=== PATIENT | female | born 1945 | race Caucasian/White ===

== ENCOUNTER → 2018-01-04 | Outpatient (CLI) | payer MEDICARE ==
--- NOTE | 2018-01-04 10:05 | CT ---
EXAMINATION TYPE: CT brain wo con DATE OF EXAM: 01/04/2018 HISTORY: memory loss/change in vision. (R 41.3 per order) . History of left-sided breast cancer. Hist ory of prior surgery per patient. CT DLP: 1144 mGycm. Automated Exposure Control for Dose Reduction was Utilized. TECHNIQUE: CT scan of the head is performed without contrast. COMPARISON: CT brain March 15, 2014. FINDINGS: There is no midline shift identified. There is diffuse ventricular and sulcal prominence consistent with diffuse age-related cerebral atrophy. There is low-attenuation in the periventricula r white matter consistent with chronic small vessel ischemic change. There is some persistent hyperde nsity left posterior frontal region near axial image 39 at site of prior larger meningioma, there has been interval surgery and likely some residual meningioma is likely present. Acute intracranial hemo rrhage would be in differential if was not provided with prior comparison There is old fracture defor mity medial wall left orbit redemonstrated. Visualized paranasal sinuses are clear. IMPRESSION: No acute intracranial hemorrhage or midline shift. There is diffuse age-related cerebra l atrophy and chronic small vessel ischemic change noted. Some residual left frontal meningioma is s uspected. This can be further investigated with MRI if desired. No significant new finding seen to ac count for patient's symptoms of vision changes.
== END ==
LOC: RADCTMAIN 09:17
PROVIDERS: ATTEND Psychiatry & Neurology Neurology
DX: G31.1 Senile degeneration of brain, not elsewhere classified (principal); I67.82 Cerebral ischemia
CPT/HCPCS: 70450

== ENCOUNTER 2018-03-14 15:34 | Inpatient (IN) | payer MEDICARE ==
[2018-03-14 16:45] LABS: Anisocytosis Slight; Basophils % (A) 0 %; Eosinophils # (A) 0.1 k/uL (0-0.7); Eosinophils % (A) 2 %; HCT 45.8 % (34.0-46.0); HGB 15.1 gm/dL (11.4-16.0); Lymphocytes # (A) 1.3 k/uL (1.0-4.8); Lymphocytes % (A) 25 %; MCH 28.8 pg (25.0-35.0); MCV 87.5 fL (80.0-100.0); Mean Platelet Volume 8.7; Monocytes # (A) 0.4 k/uL (0-1.0); Monocytes % (A) 7 %; Neutrophils # (A) 3.4 k/uL (1.3-7.7); Neutrophils % (A) 64 %; Platelet Count 156 k/uL (150-450); RBC 5.23 m/uL (3.80-5.40); RDW 16.1 % (11.5-15.5); WBC 5.3 k/uL (3.8-10.6)
[2018-03-14 16:49] LABS: ALT 30 U/L (9-52); AST 31 U/L (14-36); Alkaline Phosphatase 73 U/L (38-126); Anion Gap 9 mmol/L; Blood Urea Nitrogen 14 mg/dL (7-17); Calcium 9.2 mg/dL (8.4-10.2); Carbon Dioxide 27 mmol/L (22-30); Chloride 104 mmol/L (98-107); Glucose 81 mg/dL (74-99); Potassium 4.5 mmol/L (3.5-5.1); Sodium 140 mmol/L (137-145); Total Bilirubin 0.4 mg/dL (0.2-1.3); Total Protein 6.2 g/dL (6.3-8.2)
[2018-03-14 16:53] LABS: INR 1.1 (<1.2); Partial Thromboplastin Time 22.9 sec (22.0-30.0); Prothrombin Time 10.4 sec (9.0-12.0)
[2018-03-14 16:59] LABS: Creatine Kinase 34 U/L (30-135)
[2018-03-14 17:11] LABS: Creatine Kinase MB 0.8 ng/mL (0.0-2.4); Troponin I <0.012 ng/mL (0.000-0.034)
--- NOTE | 2018-03-14 17:12 | CT ---
EXAMINATION TYPE: CT brain wo con DATE OF EXAM: 03/14/2018 COMPARISON: 01/04/2018 HISTORY: Altered mental status. CT DLP: 1153 mGycm Automated exposure control for dose reduction was used. FINDINGS: There is cerebral cortical atrophy. There is no mass effect nor midline shift. There is a 1 cm area o f gyriform increased density in the left posterior frontal lobe convexity. This is unchanged compared to old exam and is consistent with some calcification. There is hypodensity in the periventricular w cielo matter. The calvarium is intact. IMPRESSION: LEFT FRONTAL INCREASED DENSITY AT THE CORTICAL CONVEXITY CONSISTENT WITH SMALL AREA OF RESIDUAL CALCI FICATION ALSO EVIDENT ON THE OLDER CT SCAN OF 03/15/2014. THIS WAS MUCH LARGER ON THE OLD EXAM OF 2013 . THIS APPEARS STABLE COMPARED TO THE MORE RECENT EXAM OF 01/04/2018. I DO NOT SEE EVIDENCE OF SURGERY OR CRANIOTOMY. THIS COULD BE THE RESIDUAL OF THE ARTERIOVENOUS MALFORMATION. THIS HAS BENIGN APPEARA NCE. CHRONIC SMALL VESSEL ISCHEMIA. NO ACUTE INTRACRANIAL ABNORMALITY.
--- NOTE | 2018-03-14 17:13 | XR ---
EXAMINATION TYPE: XR chest 2V DATE OF EXAM: 03/14/2018 COMPARISON: NONE HISTORY: Confusion TECHNIQUE: Frontal and lateral views of the chest are obtained. FINDINGS: There is no heart failure nor confluent pneumonic infiltrate. Costophrenic angles are woodrow r. IMPRESSION: No active cardiopulmonary disease. There is probably cardiomegaly.
[2018-03-14 18:39] LABS: Appearance,Urine Cloudy (Clear); Bacteria,Urine Few /hpf; Bilirubin,Urine Negative (Negative); Blood,Urine Negative (Negative); Color,Urine Yellow; Glucose,Urine (UA) Negative (Negative); Ketones,Urine 2+ (Negative); Leukocyte Esterase,Urine Small (Negative); Mucus,Urine Occasional /hpf; Nitrite,Urine Negative (Negative); Protein,Urine Negative (Negative); RBC,Urine <1 /hpf (0-5); Specific Gravity,Urine 1.015 (1.001-1.035); Squamous Epithelial Cell,Urine 17 /hpf (0-4); Urobilinogen,Urine <2.0 mg/dL (<2.0); WBC,Urine 5 /hpf (0-5)
--- NOTE | 2018-03-14 18:59 | ED ---
Altered Mental Status HPI - General Chief Complaint: Altered Mental Status Stated Complaint: Confusion Time Seen by Provider: 03/14/18 16:19 Source: patient Mode of arrival: wheelchair Limitations: physical limitation - History of Present Illness Initial Comments: 72 years old female presents with a confusion, she said she been confused off- and-on since yesterday heart rate was quite slow though she was seen by her family doctor today and was sent to the ER for the further evaluation review of system is significant for headache and blurred vision, no chest pain or shortness of breath no abdominal pain no symptoms of TIA or CVA. - Related Data Home Medications Medication Instructions Recorded Confirmed Levothyroxine Sodium [Synthroid] 100 mcg PO DAILY 03/15/14 03/14/18 LORazepam [Ativan] 1 mg PO DAILY PRN 07/17/16 03/14/18 Cholecalciferol [Vitamin D3] 5,000 unit PO DAILY 03/14/18 03/14/18 Ferrous Sulfate [Feosol] 325 mg PO DAILY 03/14/18 03/14/18 Rosuvastatin Calcium [Crestor] 5 mg PO DAILY 03/14/18 03/14/18 Sertraline [Zoloft] 100 mg PO DAILY 03/14/18 03/14/18 Allergies Allergy/AdvReac Type Severity Reaction Status Date / Time morphine Allergy Unknown Verified 03/14/18 16:39 Review of Systems ROS Statement: Those systems with pertinent positive or pertinent negative responses have been documented in the HPI. ROS Other: All systems not noted in ROS Statement are negative. Past Medical History Past Medical History: CVA/TIA, Hyperlipidemia, Hypertension, Thyroid Disorder History of Any Multi-Drug Resistant Organisms: None Reported Past Surgical History: Bariatric Surgery, Bladder Surgery, Tonsillectomy Past Psychological History: Anxiety, Depression Smoking Status: Former smoker Past Alcohol Use History: None Reported Past Drug Use History: None Reported General Exam - General Exam Comments Initial Comments: General: The patient is awake and alert, in no distress, and does not appear acutely ill. GCS is 15 Skin: Skin is warm and dry and no rashes or lesions are noted. Eye: Pupils are equal, round and reactive to light, extra-ocular movements are intact; there is normal conjunctiva bilaterally. Ears, nose, mouth and throat: There are moist mucous membranes and no oral lesions. Neck: The neck is supple, there is no tenderness or JVD. Cardiovascular: There is a regular rate and rhythm. No murmur, rub or gallop is appreciated. His significant bradycardia heart rate was 144 Respiratory: To auscultation bilateral crease breath sounds bilateral Gastrointestinal: Soft, non-distended, non-tender abdomen without masses or organomegaly noted. There is no rebound or guarding present. Bowel sounds are unremarkable. Back: There is no tenderness to palpation in the midline. There is no obvious deformity. Musculoskeletal: Normal ROM, no tenderness, There is no pedal edema. There is no calf tenderness or swelling. No cords were appreciated. Neurological: CN II-XII intact, Cranial nerves III through XII are intact. There are no obvious motor or sensory deficits. Coordination appears grossly intact. Speech is normal. Psychiatric: Cooperative, appropriate mood & affect, normal judgment. Limitations: physical limitation Course Vital Signs 03/14/18 03/14/18 03/14/18 15:47 16:50 18:00 Temperature 97.8 F Pulse Rate 50 L 44 L 48 L Respiratory 18 18 18 Rate Blood Pressure 162/94 180/94 185/81 O2 Sat by Pulse 96 98 93 L Oximetry EKG is a sinus bradycardia ventricular rate is 45 NC interval is 156 QRS duration is 86 QT/QTc is 480/450 and 50 mL EKG reveals some T-wave inversion in lead [address] elevation or ST depression noticed Upon reassessment noticed CBC is normal INR is normal, his metabolic panel is unremarkable head CT has some findings but the radiologist felt those findings were chronic chest x-rays unremarkable patient is bradycardia, bradycardia induced confusion, chronic findings on the head CT and UTIs. It was discussed with the Dr. Benitez heart he agreed to the admission with them antibiotics for the UTIs cardiology consult for bradycardia and we'll order a TSH and magnesium Medical Decision Making - Lab Data Result diagrams: 03/14/18 16:11 03/14/18 16:11 Lab Results 03/14/18 03/14/18 03/14/18 Range/Units 16:11 16:11 16:11 WBC 5.3 (3.8-10.6) k/uL RBC 5.23 (3.80-5.40) m/uL Hgb 15.1 (11.4-16.0) gm/dL Hct 45.8 (34.0-46.0) % MCV 87.5 (80.0-100.0) fL MCH 28.8 (25.0-35.0) pg MCHC 33.0 (31.0-37.0) g/dL RDW 16.1 H (11.5-15.5) % Plt Count 156 (150-450) k/uL Neutrophils % 64 % Lymphocytes % 25 % Monocytes % 7 % Eosinophils % 2 % Basophils % 0 % Neutrophils # 3.4 (1.3-7.7) k/uL Lymphocytes # 1.3 (1.0-4.8) k/uL Monocytes # 0.4 (0-1.0) k/uL Eosinophils # 0.1 (0-0.7) k/uL Basophils # 0.0 (0-0.2) k/uL Anisocytosis Slight PT (9.0-12.0) sec INR (<1.2) APTT (22.0-30.0) sec Sodium 140 (137-145) mmol/L Potassium 4.5 (3.5-5.1) mmol/L Chloride 104 (98-107) mmol/L Carbon Dioxide 27 (22-30) mmol/L Anion Gap 9 mmol/L BUN 14 (7-17) mg/dL Creatinine 0.60 (0.52-1.04) mg/dL Est GFR (CKD-EPI)AfAm >90 (>60 ml/min/1.73 sqM) Est GFR (CKD-EPI)NonAf >90 (>60 ml/min/1.73 sqM) Glucose 81 (74-99) mg/dL Calcium 9.2 (8.4-10.2) mg/dL Total Bilirubin 0.4 (0.2-1.3) mg/dL AST 31 (14-36) U/L ALT 30 (9-52) U/L Alkaline Phosphatase 73 (38-126) U/L Total Creatine Kinase 34 (30-135) U/L CK-MB (CK-2) 0.8 (0.0-2.4) ng/mL CK-MB (CK-2) Rel Index 2.4 Troponin I <0.012 (0.000-0.034) ng/mL Total Protein 6.2 L (6.3-8.2) g/dL Albumin 4.0 (3.5-5.0) g/dL Urine Color Urine Appearance (Clear) Urine pH (5.0-8.0) Ur Specific [place] (1.001-1.035) Urine Protein (Negative) Urine Glucose (UA) (Negative) Urine Ketones (Negative) Urine Blood (Negative) Urine Nitrite (Negative) Urine Bilirubin (Negative) Urine Urobilinogen (<2.0) mg/dL Ur Leukocyte Esterase (Negative) Urine RBC (0-5) /hpf Urine WBC (0-5) /hpf Ur Squamous Epith Cells (0-4) /hpf Urine Bacteria (None) /hpf Urine Mucus (None) /hpf Urine Opiates Screen (NotDetected) Ur Oxycodone Screen (NotDetected) Urine Methadone Screen (NotDetected) Ur Propoxyphene Screen (NotDetected) Ur Barbiturates Screen (NotDetected) U Tricyclic Antidepress (NotDetected) Ur Phencyclidine Scrn (NotDetected) Ur Amphetamines Screen (NotDetected) U Methamphetamines Scrn (NotDetected) U Benzodiazepines Scrn (NotDetected) Urine Cocaine Screen (NotDetected) U Marijuana (THC) Screen (NotDetected) 03/14/18 03/14/18 Range/Units 16:11 18:25 WBC (3.8-10.6) k/uL RBC (3.80-5.40) m/uL Hgb (11.4-16.0) gm/dL Hct (34.0-46.0) % MCV (80.0-100.0) fL MCH (25.0-35.0) pg MCHC (31.0-37.0) g/dL RDW (11.5-15.5) % Plt Count (150-450) k/uL Neutrophils % % Lymphocytes % % Monocytes % % Eosinophils % % Basophils % % Neutrophils # (1.3-7.7) k/uL Lymphocytes # (1.0-4.8) k/uL Monocytes # (0-1.0) k/uL Eosinophils # (0-0.7) k/uL Basophils # (0-0.2) k/uL Anisocytosis PT 10.4 (9.0-12.0) sec INR 1.1 (<1.2) APTT 22.9 (22.0-30.0) sec Sodium (137-145) mmol/L Potassium (3.5-5.1) mmol/L Chloride (98-107) mmol/L Carbon Dioxide (22-30) mmol/L Anion Gap mmol/L BUN (7-17) mg/dL Creatinine (0.52-1.04) mg/dL Est GFR (CKD-EPI)AfAm (>60 ml/min/1.73 sqM) Est GFR (CKD-EPI)NonAf (>60 ml/min/1.73 sqM) Glucose (74-99) mg/dL Calcium (8.4-10.2) mg/dL Total Bilirubin (0.2-1.3) mg/dL AST (14-36) U/L ALT (9-52) U/L Alkaline Phosphatase (38-126) U/L Total Creatine Kinase (30-135) U/L CK-MB (CK-2) (0.0-2.4) ng/mL CK-MB (CK-2) Rel Index Troponin I (0.000-0.034) ng/mL Total Protein (6.3-8.2) g/dL Albumin (3.5-5.0) g/dL Urine Color Yellow Urine Appearance Cloudy H (Clear) Urine pH 6.0 (5.0-8.0) Ur Specific [place] 1.015 (1.001-1.035) Urine Protein Negative (Negative) Urine Glucose (UA) Negative (Negative) Urine Ketones 2+ H (Negative) Urine Blood Negative (Negative) Urine Nitrite Negative (Negative) Urine Bilirubin Negative (Negative) Urine Urobilinogen <2.0 (<2.0) mg/dL Ur Leukocyte Esterase Small H (Negative) Urine RBC <1 (0-5) /hpf Urine WBC 5 (0-5) /hpf Ur Squamous Epith Cells 17 H (0-4) /hpf Urine Bacteria Few H (None) /hpf Urine Mucus Occasional H (None) /hpf Urine Opiates Screen Not Detected (NotDetected) Ur Oxycodone Screen Not Detected (NotDetected) Urine Methadone Screen Not Detected (NotDetected) Ur Propoxyphene Screen Not Detected (NotDetected) Ur Barbiturates Screen Not Detected (NotDetected) U Tricyclic Antidepress Not Detected (NotDetected) Ur Phencyclidine Scrn Not Detected (NotDetected) Ur Amphetamines Screen Not Detected (NotDetected) U Methamphetamines Scrn Not Detected (NotDetected) U Benzodiazepines Scrn Not Detected (NotDetected) Urine Cocaine Screen Not Detected (NotDetected) U Marijuana (THC) Screen Detected H (NotDetected) Disposition Clinical Impression: Bradycardia, Confusion, UTI (urinary tract infection) Disposition: ADMITTED IP TO THIS HOSP Condition: Good Referrals: Darling Newton MD [Primary Care Provider] - 1-2 days
[2018-03-14 19:01] LABS: Amphetamine Screen,Urine Not Detected (NotDetected); Barbiturate Screen,Urine Not Detected (NotDetected); Benzodiazepines Screen,Urine Not Detected (NotDetected); Cocaine Screen,Urine Not Detected (NotDetected); Methadone Screen, Urine Not Detected (NotDetected); Opiate Screen,Urine Not Detected (NotDetected); Oxycodone Screen, Urine Not Detected (NotDetected); Phencyclidine Screen,Urine Not Detected (NotDetected); Tricyclic Antidepressant,Urine Not Detected (NotDetected); Urn Cannabinoid Scrn Detected (NotDetected)
[2018-03-14] MEDS ORDERED: NITROGLYCERIN SL TABS 0.4 MG TAB SUBLINGUAL PRN (19:16)
[2018-03-14 19:19] LABS: Magnesium 2.2 mg/dL (1.6-2.3)
[2018-03-14] MEDS ORDERED: cefTRIAXone IN SWFI 1,000 MG/10 ML SYRINGE IVP STA (19:20)
[2018-03-14] MEDS ORDERED: LORazepam 1 MG TAB PO PRN (19:20)
[2018-03-14] MEDS: ENALAPRILAT 1.25 MG/ML 1 ML VIAL IVP STA (22:01)
[2018-03-14 23:04] LABS: Creatine Kinase 30 U/L (30-135)
[2018-03-14 23:14] LABS: Creatine Kinase MB 0.6 ng/mL (0.0-2.4); Troponin I <0.012 ng/mL (0.000-0.034)
[2018-03-15 03:56] LABS: Cholesterol 157 mg/dL (<200); HDL Cholesterol 61 mg/dL (40-60); LDL Cholesterol,Calculated 74 mg/dL (0-99); Triglycerides 109 mg/dL (<150)
[2018-03-15 04:00] LABS: Creatine Kinase 27 U/L (30-135)
[2018-03-15 04:14] LABS: Creatine Kinase MB 0.6 ng/mL (0.0-2.4); Troponin I <0.012 ng/mL (0.000-0.034)
[2018-03-15] MEDS: ENALAPRILAT 1.25 MG/ML 1 ML VIAL IVP STA (06:49)
[2018-03-15] MEDS: LEVOTHYROXINE 100 MCG TAB PO SCH (06:50)
[2018-03-15] MEDS ORDERED: ASPIRIN 325 MG TAB PO SCH (09:00)
[2018-03-15] MEDS: FERROUS SULFATE 325 MG TAB PO SCH (09:22)
[2018-03-15] MEDS: SERTRALINE 100 MG TAB PO SCH (09:22)
[2018-03-15] MEDS: CHOLECALCIFEROL 1,000 UNIT TAB PO SCH (09:22)
[2018-03-15] MEDS: ATORVASTATIN 10 MG TAB PO SCH (09:22)
--- NOTE | 2018-03-15 11:03 | P.CRDCN ---
History of Present Illness Consult date: 03/15/18 Requesting physician: Darling Newton Reason for Consult (text): Bradycardia History of present illness: This is a pleasant 72-year-old female who sees as her primary care doctor, she has history of hypothyroidism, hyperlipidemia, history of alcohol abuse, patient quit drinking 10 years ago. She presents to the hospital with symptoms of progressive tiredness as well as some mental status changes and forgetfulness. He also states that she's been getting intermittent headaches with blurring of vision. She denies any dizziness or lightheadedness , no syncope or near syncope. Cardiology consultation was requested because of bradycardia. EKG on arrival here showed a sinus bradycardia with a heart rate in the low 40s. CT of the brain showed left frontal increased density at the cortical convexity consistent with small area of residual calcification, also evident on prior CT. This was much larger on her prior CAT scan. Blood pressure on arrival 162/94 with a heart rate of 44, 96% on room air. Chest x- ray did not reveal any active cardiopulmonary disease. CBC is normal. Sodium 140, potassium 4.5, BUN 14, creatinine 0.6. Troponins negative 3. TSH 0.649. Magnesium 2.2. Mild UTI. Drug screen positive for marijuana. Past Medical History Past Medical History: Cancer, CVA/TIA, Hyperlipidemia, Hypertension, Memory Impairment, Osteoarthritis (OA), Thyroid Disorder Additional Past Medical History / Comment(s): rt side dominant. lt breast cancer dx 2005 had a lumpectomy, no chmo no radiation. overactive bladder(has had an implant for bladder control -since removed and botox inj-completed.back pain,past cva-no residual. hx benign colon polyos, bradycardia. past sleep apnea -since wt loss no longer a problem. pt stated she has had a pne vaccine in past 5 years-unsure of date-caption writer unable to verify date at time of this admit. History of Any Multi-Drug Resistant Organisms: None Reported Past Surgical History: Bariatric Surgery, Bladder Surgery, Joint Replacement, Tonsillectomy Additional Past Surgical History / Comment(s): [id number], rt total knee replacement 2005, colonoscopy,lt breast bx and lumpectomy, implant in [employer] for the bladder-since removed and past botox inj in bladder. Past Anesthesia/Blood Transfusion Reactions: No Reported Reaction Smoking Status: Former smoker - Past Family History Father Family Medical History: Coronary Artery Disease (CAD) Additional Family Medical History / Comment(s): heart problems Mother Family Medical History: Cancer Additional Family Medical History / Comment(s): lung cancer w/mets to brain Medications and Allergies Home Medications Medication Instructions Recorded Confirmed Type Levothyroxine Sodium [Synthroid] 100 mcg PO DAILY 03/15/14 03/14/18 History LORazepam [Ativan] 1 mg PO DAILY PRN 07/17/16 03/14/18 History Cholecalciferol [Vitamin D3] 5,000 unit PO DAILY 03/14/18 03/14/18 History Ferrous Sulfate [Feosol] 325 mg PO DAILY 03/14/18 03/14/18 History Rosuvastatin Calcium [Crestor] 5 mg PO DAILY 03/14/18 03/14/18 History Sertraline [Zoloft] 100 mg PO DAILY 03/14/18 03/14/18 History Allergies Allergy/AdvReac Type Severity Reaction Status Date / Time morphine Allergy Unknown Verified 03/14/18 16:39 Physical Exam Vitals: Vital Signs Temp Pulse Pulse Resp BP BP Pulse Ox 03/15/18 08:00 97.4 F L 47 L 18 119/57 94 L 03/15/18 04:00 97.3 F L 44 L 16 119/64 92 L 03/15/18 00:00 97.8 F 46 L 18 123/56 94 L 03/14/18 22:03 60 139/67 95 03/14/18 20:45 98.1 F 44 L 16 186/82 03/14/18 20:00 45 L 16 172/79 95 03/14/18 19:13 45 L 19 197/83 98 03/14/18 18:00 48 L 18 185/81 93 L 03/14/18 16:50 44 L 18 180/94 98 03/14/18 15:47 97.8 F 50 L 18 162/94 96 Intake and Output 03/14/18 03/15/18 03/15/18 22:59 06:59 14:59 Intake Total 60 Balance 60 Intake: Oral 60 Other: # Voids 1 Weight 77.111 kg 78.4 kg 78.4 kg PHYSICAL EXAMINATION: GENERAL: 72-year-old female in no apparent HEENT: Head is atraumatic, normocephalic. Pupils equal, round. Sclera anicteric. Conjunctiva are clear. Mucous membranes of the mouth are moist. Neck is supple. There is no elevated jugular venous pressure.] No carotid bruit is heard. HEART EXAMINATION: Heart S1, S2 normal. No murmur or gallop heard. CHEST EXAMINATION: Lungs are clear to auscultation and precussion. No chest wall tenderness is noted on palpation or with deep breathing. ABDOMEN: Soft, nontender. Bowel sounds are heard. No organomegaly noted. EXTREMITIES: 2+ peripheral pulses with no evidence of peripheral edema and no calf tenderness noted. NEUROLOGIC patient is awake, alert and oriented -3. . Results 03/14/18 16:11 03/14/18 16:11 Cardiac Enzymes 03/14/18 03/14/18 03/14/18 Range/Units 16:11 16:11 22:19 AST 31 (14-36) U/L CK-MB (CK-2) 0.8 0.6 (0.0-2.4) ng/mL Troponin I <0.012 <0.012 (0.000-0.034) ng/mL 03/15/18 Range/Units 03:35 AST (14-36) U/L CK-MB (CK-2) 0.6 (0.0-2.4) ng/mL Troponin I <0.012 (0.000-0.034) ng/mL Coagulation 03/14/18 Range/Units 16:11 PT 10.4 (9.0-12.0) sec APTT 22.9 (22.0-30.0) sec Lipids 03/15/18 Range/Units 03:35 Triglycerides 109 (<150) mg/dL Cholesterol 157 (<200) mg/dL HDL Cholesterol 61 H (40-60) mg/dL CBC 03/14/18 Range/Units 16:11 WBC 5.3 (3.8-10.6) k/uL RBC 5.23 (3.80-5.40) m/uL Hgb 15.1 (11.4-16.0) gm/dL Hct 45.8 (34.0-46.0) % Plt Count 156 (150-450) k/uL Comprehensive Metabolic Panel 03/14/18 Range/Units 16:11 Sodium 140 (137-145) mmol/L Potassium 4.5 (3.5-5.1) mmol/L Chloride 104 (98-107) mmol/L Carbon Dioxide 27 (22-30) mmol/L BUN 14 (7-17) mg/dL Creatinine 0.60 (0.52-1.04) mg/dL Glucose 81 (74-99) mg/dL Calcium 9.2 (8.4-10.2) mg/dL AST 31 (14-36) U/L ALT 30 (9-52) U/L Alkaline Phosphatase 73 (38-126) U/L Total Protein 6.2 L (6.3-8.2) g/dL Albumin 4.0 (3.5-5.0) g/dL Current Medications Generic Name Dose Route Start Last Admin Trade Name Freq PRN Reason Stop Dose Admin Aspirin 325 mg 03/15/18 09:00 03/15/18 09:22 Aspirin PO 325 mg DAILY INO Administration Atorvastatin Calcium 10 mg 03/15/18 09:00 03/15/18 09:22 Lipitor PO 10 mg DAILY INO Administration Ceftriaxone Sodium 1,000 mg 03/15/18 09:15 Rocephin IVP Q24HR INO Cholecalciferol 5,000 unit 03/15/18 09:00 03/15/18 09:22 Vitamin D3 PO 5,000 unit DAILY INO Administration Ferrous Sulfate 325 mg 03/15/18 09:00 03/15/18 09:22 Feosol PO 325 mg DAILY INO Administration Levothyroxine Sodium 100 mcg 03/15/18 06:30 03/15/18 06:50 Synthroid PO 100 mcg DAILY@0630 INO Administration Lorazepam 1 mg 03/14/18 19:20 Ativan PO DAILY PRN Anxiety Nitroglycerin 0.4 mg 03/14/18 19:16 Nitrostat SUBLINGUAL Q5M PRN Chest Pain Sertraline HCl 100 mg 03/15/18 09:00 03/15/18 09:22 Zoloft PO 100 mg DAILY INO Administration Intake and Output 03/14/18 03/15/18 03/15/18 22:59 06:59 14:59 Intake Total 60 Balance 60 Intake: Oral 60 Other: # Voids 1 Weight 77.111 kg 78.4 kg 78.4 kg Patient Weight 03/16/18 06:59 Weight 78.4 kg 03/14/18 16:11 03/14/18 16:11 EKG Interpretations (text) EKG shows a sinus bradycardia Assessment and Plan Plan: Assessment and plan #1 symptoms of tiredness and weakness, evidence of sinus bradycardia on EKG, TSH is normal. #2 mental status changes, CT of the brain does reveal a density of the clavicle convexity consistent with small area of residual calcification, much smaller than the prior exam of 2013. #3 hypothyroidism, on Synthroid, TSH level normal. #4 hyperlipidemia # 5 hypertension, uncontrolled #6 TIA #7 mildly UTI, started on antibiotics. Plan We will obtain an echocardiogram with Doppler study. Decrease aspirin 81 mg daily. Optimize blood pressure management. Continue to monitor, patient may require implantation of permanent pacemaker. Further recommendations to follow. DNP note has been reviewed, I agree with a documented findings and plan of care. Patient was seen and examined.
--- NOTE | 2018-03-15 11:27 | P.CRDCN ---
History of Present Illness History of present illness: Symptomatic sinus bradycardia with tiredness and fatigue for the last several weeks without any aggravating factors. TSH normal potassium and normal no growth aerobically active medications on board. Suggest dual-chamber pacemaker implantation on Tuesday Past Medical History Past Medical History: Cancer, CVA/TIA, Hyperlipidemia, Hypertension, Memory Impairment, Osteoarthritis (OA), Thyroid Disorder Additional Past Medical History / Comment(s): rt side dominant. lt breast cancer dx 2005 had a lumpectomy, no chmo no radiation. overactive bladder(has had an implant for bladder control -since removed and botox inj-completed.back pain,past cva-no residual. hx benign colon polyos, bradycardia. past sleep apnea -since wt loss no longer a problem. 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 History of Any Multi-Drug Resistant Organisms: None Reported Past Surgical History: Bariatric Surgery, Bladder Surgery, Joint Replacement, Tonsillectomy Additional Past Surgical History / Comment(s): zay-en-y, rt total knee replacement 2005, colonoscopy,lt breast bx and lumpectomy, implant in buuotcks for the bladder-since removed and past botox inj in bladder. Past Anesthesia/Blood Transfusion Reactions: No Reported Reaction Smoking Status: Former smoker - Past Family History Father Family Medical History: Coronary Artery Disease (CAD) Additional Family Medical History / Comment(s): heart problems Mother Family Medical History: Cancer Additional Family Medical History / Comment(s): lung cancer w/mets to brain Medications and Allergies Home Medications Medication Instructions Recorded Confirmed Type Levothyroxine Sodium [Synthroid] 100 mcg PO DAILY 03/15/14 03/14/18 History LORazepam [Ativan] 1 mg PO DAILY PRN 07/17/16 03/14/18 History Cholecalciferol [Vitamin D3] 5,000 unit PO DAILY 03/14/18 03/14/18 History Ferrous Sulfate [Feosol] 325 mg PO DAILY 03/14/18 03/14/18 History Rosuvastatin Calcium [Crestor] 5 mg PO DAILY 03/14/18 03/14/18 History Sertraline [Zoloft] 100 mg PO DAILY 03/14/18 03/14/18 History Allergies Allergy/AdvReac Type Severity Reaction Status Date / Time morphine Allergy Unknown Verified 03/14/18 16:39 Physical Exam Vitals: Vital Signs Temp Pulse Pulse Resp BP BP Pulse Ox 03/15/18 08:00 97.4 F L 47 L 18 119/57 94 L 03/15/18 04:00 97.3 F L 44 L 16 119/64 92 L 03/15/18 00:00 97.8 F 46 L 18 123/56 94 L 03/14/18 22:03 60 139/67 95 03/14/18 20:45 98.1 F 44 L 16 186/82 03/14/18 20:00 45 L 16 172/79 95 03/14/18 19:13 45 L 19 197/83 98 03/14/18 18:00 48 L 18 185/81 93 L 03/14/18 16:50 44 L 18 180/94 98 03/14/18 15:47 97.8 F 50 L 18 162/94 96 Intake and Output 03/14/18 03/15/18 03/15/18 22:59 06:59 14:59 Intake Total 60 Balance 60 Intake: Oral 60 Other: # Voids 1 Weight 77.111 kg 78.4 kg 78.4 kg Results 03/14/18 16:11 03/14/18 16:11 Cardiac Enzymes 03/14/18 03/14/18 03/14/18 Range/Units 16:11 16:11 22:19 AST 31 (14-36) U/L CK-MB (CK-2) 0.8 0.6 (0.0-2.4) ng/mL Troponin I <0.012 <0.012 (0.000-0.034) ng/mL 03/15/18 Range/Units 03:35 AST (14-36) U/L CK-MB (CK-2) 0.6 (0.0-2.4) ng/mL Troponin I <0.012 (0.000-0.034) ng/mL Coagulation 03/14/18 Range/Units 16:11 PT 10.4 (9.0-12.0) sec APTT 22.9 (22.0-30.0) sec Lipids 03/15/18 Range/Units 03:35 Triglycerides 109 (<150) mg/dL Cholesterol 157 (<200) mg/dL HDL Cholesterol 61 H (40-60) mg/dL CBC 03/14/18 Range/Units 16:11 WBC 5.3 (3.8-10.6) k/uL RBC 5.23 (3.80-5.40) m/uL Hgb 15.1 (11.4-16.0) gm/dL Hct 45.8 (34.0-46.0) % Plt Count 156 (150-450) k/uL Comprehensive Metabolic Panel 03/14/18 Range/Units 16:11 Sodium 140 (137-145) mmol/L Potassium 4.5 (3.5-5.1) mmol/L Chloride 104 (98-107) mmol/L Carbon Dioxide 27 (22-30) mmol/L BUN 14 (7-17) mg/dL Creatinine 0.60 (0.52-1.04) mg/dL Glucose 81 (74-99) mg/dL Calcium 9.2 (8.4-10.2) mg/dL AST 31 (14-36) U/L ALT 30 (9-52) U/L Alkaline Phosphatase 73 (38-126) U/L Total Protein 6.2 L (6.3-8.2) g/dL Albumin 4.0 (3.5-5.0) g/dL Current Medications Generic Name Dose Route Start Last Admin Trade Name Freq PRN Reason Stop Dose Admin Aspirin 81 mg 03/16/18 09:00 Aspirin PO DAILY [facility] Atorvastatin Calcium 10 mg 03/15/18 09:00 03/15/18 09:22 Lipitor PO 10 mg DAILY INO Administration Cefazolin Sodium 2 gm 03/17/18 06:30 Kefzol IVP 03/17/18 06:31 ONCE ONE Ceftriaxone Sodium 1,000 mg 03/15/18 09:15 Rocephin IVP Q24HR INO Cholecalciferol 5,000 unit 03/15/18 09:00 03/15/18 09:22 Vitamin D3 PO 5,000 unit DAILY INO Administration Ferrous Sulfate 325 mg 03/15/18 09:00 03/15/18 09:22 Feosol PO 325 mg DAILY INO Administration Cefazolin Sodium 1,000 mg/ 250 mls @ 500 mls/hr 03/17/18 06:30 Sodium Chloride IRRIGATION 03/17/18 06:59 ONCE ONE Sodium Chloride 1,000 mls @ 50 mls/hr 03/15/18 11:30 Saline 0.9% IV .Q20H INO Sodium Chloride 1,000 mls @ 50 mls/hr 03/15/18 11:30 Saline 0.9% IV .Q20H INO Levothyroxine Sodium 100 mcg 03/15/18 06:30 03/15/18 06:50 Synthroid PO 100 mcg DAILY@0630 ION Administration Lorazepam 1 mg 03/14/18 19:20 Ativan PO DAILY PRN Anxiety Nitroglycerin 0.4 mg 03/14/18 19:16 Nitrostat SUBLINGUAL Q5M PRN Chest Pain Sertraline HCl 100 mg 03/15/18 09:00 03/15/18 09:22 Zoloft PO 100 mg DAILY INO Administration Intake and Output 03/14/18 03/15/18 03/15/18 22:59 06:59 14:59 Intake Total 60 Balance 60 Intake: Oral 60 Other: # Voids 1 Weight 77.111 kg 78.4 kg 78.4 kg Patient Weight 03/16/18 06:59 Weight 78.4 kg 03/14/18 16:11 03/14/18 16:11
[2018-03-15] MEDS: cefTRIAXone IN SWFI 1,000 MG/10 ML SYRINGE IVP SCH (11:41)
--- NOTE | 2018-03-15 12:44 | ECHOF ---
Referral Reason:lvfunction MEASUREMENTS -------- HEIGHT: 162.6 cm WEIGHT: 78.0 kg BP: 119/57 RVIDd: 3.3 cm (< 3.3) IVSd: 1.6 cm (0.6 - 1.1) LVIDd: 4.0 cm (3.9 - 5.3) LVPWd: 1.5 cm (0.6 - 1.1) IVSs: 2.0 cm LVIDs: 2.2 cm LVPWs: 2.0 cm Ao Diam: 2.9 cm (2.0 - 3.7) AV Cusp: 1.6 cm (1.5 - 2.6) LA Diam: 3.2 cm (2.7 - 3.8) MV EXCURSION: 17.354 mm (> 18.000) MV EF SLOPE: 32 mm/s (70 - 150) EPSS: 0.3 cm MV E Nas: 0.69 m/s MV DecT: 243 ms MV A Nas: 1.02 m/s MV E/A Ratio: 0.67 AV maxP.56 mmHg AV meanP.64 mmHg AR PHT: 216 ms RAP: 5.00 mmHg RVSP: 20.45 mmHg FINDINGS -------- Resting bradycardia (HR<60bpm). This was a technically difficult study with suboptimal views. The left ventricular size is normal. There is moderate concentric left ventricular hypertrophy. O verall left ventricular systolic function is normal with, an EF between 55 - 60 %. The right ventricle is normal in size and function. The right atrium is normal in size. Lumason used Aortic valve is trileaflet and is mildly thickened. Trace amount of aortic regurgitation. There is mild aortic stenosis present. Peak/mean gradient across the Aortic Valve is 16.56mmHg / 10.64mmH g. The mitral valve leaflets are mildly thickened. Mild mitral regurgitation is present. Mild tricuspid regurgitation present. The right ventricular systolic pressure, as measured by Doppl er, is 20.45mmHg. Trace/mild (physiologic) pulmonic regurgitation. The aortic root size is normal. Normal inferior vena cava with normal inspiratory collapse consistent with estimated right atrial pre ssure of 5 mmHg. The pericardium is normal. CONCLUSIONS -------- 1. Resting bradycardia (HR<60bpm). 2. This was a technically difficult study with suboptimal views. 3. The left ventricular size is normal. 4. There is moderate concentric left ventricular hypertrophy. 5. Overall left ventricular systolic function is normal with, an EF between 55 - 60 %. 6. The right ventricle is normal in size and function. 7. The right atrium is normal in size. 8. Lumason used 9. Aortic valve is trileaflet and is mildly thickened. 10. Trace amount of aortic regurgitation. 11. There is mild aortic stenosis present. 12. Peak/mean gradient across the Aortic Valve is 16.56mmHg / 10.64mmHg. 13. The mitral valve leaflets are mildly thickened. 14. Mild mitral regurgitation is present. 15. Mild tricuspid regurgitation present. 16. The right ventricular systolic pressure, as measured by Doppler, is 20.45mmHg. 17. Trace/mild (physiologic) pulmonic regurgitation. 18. The aortic root size is normal. 19. Normal inferior vena cava with normal inspiratory collapse consistent with estimated right atrial pressure of 5 mmHg. 20. The pericardium is normal. MARKETING COMMUNICATION MANAGER: Huyen Casiano RDCS
--- NOTE | 2018-03-15 16:27 | P.HPIM ---
History of Present Illness H&P Date: 03/15/18 Chief Complaint: severe bradycardia, presyncope, fatigue, lightheadedness, change mental sta 72-year-old female one of our office patient with past medical history of CVA/TIA, history of hypertension, history of memory impairment history of osteoarthritis and history of breast cancer who was in the office in 6-[address] Benjamin, patient found to be slightly confused having severe abnormal balance gait and presyncope with symptoms consistent with tiredness fatigue confusion not been able to ambulate have been having problem with her balance and gait. Through her exam found to have severely low pulse rate running in the 40s and have concern of TIA versus CVA. Patient was sent to the emergency department at [facility] where was seen and evaluated. Surprisingly blood pressure was moderately elevated her pulse rate continue to be in the low 40 no other abnormality her troponin came back negative normal chemistry and blood count magnesium was normal. CT of the brain showed left frontal increased density of the cortical area consistent with small area of residual calcification was found pre-or MRI and CAT scan. Patient was diagnosed with severe symptomatic bradycardia, presyncope along with systemic complain consistent with her bradycardia. Was admitted to the hospital might needed pacemaker. Patient troponin 3 will be done overnight will be seen cardiology and if no other factor for her bradycardia patient might need dual-chamber pacemaker. Review of Systems Constitutional: Reports fatigue, Reports lethargy, Reports weakness Eyes: denies blurred vision, denies bulging eye, denies decreased vision Ears: deny: decreased hearing, ear discharge, earache Ears, nose, mouth and throat: Denies headache, Denies sore throat Cardiovascular: Reports decreased exercise tolerance, Reports dyspnea on exertion, Reports shortness of breath, worsening edema. Respiratory: Reports cough, Reports dyspnea, worsening shortness of breath along with cough productive phlegm. Gastrointestinal: Positive abdominal pain, positive diarrhea, positive nausea, positive vomiting Genitourinary: Reports as per HPI Musculoskeletal: Denies myalgias Musculoskeletal: absent: ankle pain, ankle stiffness, ankle swelling Integumentary: Denies pruritus, Denies rash, worsening edema of the lower extremity. Neurological: Reports change in mentation, Reports weakness, mild change mental status compared to his baseline. Psychiatric: Denies anxiety, Denies depression Endocrine: Denies fatigue, Denies weight change Hematologic/Lymphatic: Reports as per HPI Allergic/Immunologic: Reports as per HPI Past Medical History Past Medical History: Cancer, CVA/TIA, Hyperlipidemia, Hypertension, Memory Impairment, Osteoarthritis (OA), Thyroid Disorder Additional Past Medical History / Comment(s): rt side dominant. lt breast cancer dx 2006 had a lumpectomy, no chmo no radiation. overactive bladder(has had an implant for bladder control -since removed and botox inj-completed.back pain,past cva-no residual. hx benign colon polyos, bradycardia. past sleep apnea -since wt loss no longer a problem. 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 History of Any Multi-Drug Resistant Organisms: None Reported Past Surgical History: Bariatric Surgery, Bladder Surgery, Joint Replacement, Tonsillectomy Additional Past Surgical History / Comment(s): zay-en-y, rt total knee replacement 2005, colonoscopy,lt breast bx and lumpectomy, implant in buuotcks for the bladder-since removed and past botox inj in bladder. Past Anesthesia/Blood Transfusion Reactions: No Reported Reaction Smoking Status: Former smoker - Past Family History Father Family Medical History: Coronary Artery Disease (CAD) Additional Family Medical History / Comment(s): heart problems Mother Family Medical History: Cancer Additional Family Medical History / Comment(s): lung cancer w/mets to brain Medications and Allergies Home Medications Medication Instructions Recorded Confirmed Type Levothyroxine Sodium [Synthroid] 100 mcg PO DAILY 03/15/14 03/14/18 History LORazepam [Ativan] 1 mg PO DAILY PRN 07/17/16 03/14/18 History Cholecalciferol [Vitamin D3] 5,000 unit PO DAILY 03/14/18 03/14/18 History Ferrous Sulfate [Feosol] 325 mg PO DAILY 03/14/18 03/14/18 History Rosuvastatin Calcium [Crestor] 5 mg PO DAILY 03/14/18 03/14/18 History Sertraline [Zoloft] 100 mg PO DAILY 03/14/18 03/14/18 History Allergies Allergy/AdvReac Type Severity Reaction Status Date / Time morphine Allergy Unknown Verified 03/14/18 16:39 Physical Exam Vitals: Vital Signs Temp Pulse Pulse Resp BP BP Pulse Ox 03/15/18 08:00 97.4 F L 47 L 18 119/57 94 L 03/15/18 04:00 97.3 F L 44 L 16 119/64 92 L 03/15/18 00:00 97.8 F 46 L 18 123/56 94 L 03/14/18 22:03 60 139/67 95 03/14/18 20:45 98.1 F 44 L 16 186/82 03/14/18 20:00 45 L 16 172/79 95 03/14/18 19:13 45 L 19 197/83 98 03/14/18 18:00 48 L 18 185/81 93 L 03/14/18 16:50 44 L 18 180/94 98 03/14/18 15:47 97.8 F 50 L 18 162/94 96 Intake and Output 03/14/18 03/15/18 03/15/18 22:59 06:59 14:59 Intake Total 60 Balance 60 Intake: Oral 60 Other: # Voids 1 Weight 77.111 kg 78.4 kg Constitutional: Well-developed in no acute respiratory distress. Neck HEENT: Supple pupils are symmetric and reactive to light no carotid bruits or thyroid enlargement. Chest wall: Will expansion bilaterally with no chest wall deformity. Lungs: Decreased breath sound, no crackles or rhonchi no wheezes. Cardiovascular: PMI is in the left fifth costal space, anterior axillary line, Regular rhythm and rate S1, S2, positive S3, positive PVCs. With severe bradycardia with pulse rate running in the 40s. Abdomen: distended, slight splenomegaly with slight a situs soft positive bowel sound no rebound or rigidity. Extremities: No edema, decreased pulses dorsalis pedis and posterior tibial bilaterally. Positive severe degenerative arthritis in both knees with mild to moderate osteoarthritis in both hands. Neuro: Alert, slightly confused, moving all his 4 extremity has generalized weakness no focal deficit. Positive abnormal balance and gait. Results CBC & Chem 7: 03/14/18 16:11 03/14/18 16:11 Labs: Abnormal Lab Results - Last 24 Hours (Table) 03/14/18 03/14/18 03/14/18 Range/Units 16:11 16:11 18:25 RDW 16.1 H (11.5-15.5) % Total Creatine Kinase (30-135) U/L Total Protein 6.2 L (6.3-8.2) g/dL HDL Cholesterol (40-60) mg/dL Urine Appearance Cloudy H (Clear) Urine Ketones 2+ H (Negative) Ur Leukocyte Esterase Small H (Negative) Ur Squamous Epith Cells 17 H (0-4) /hpf Urine Bacteria Few H (None) /hpf Urine Mucus Occasional H (None) /hpf U Marijuana (THC) Screen Detected H (NotDetected) 03/15/18 03/15/18 Range/Units 03:35 03:35 RDW (11.5-15.5) % Total Creatine Kinase 27 L (30-135) U/L Total Protein (6.3-8.2) g/dL HDL Cholesterol 61 H (40-60) mg/dL Urine Appearance (Clear) Urine Ketones (Negative) Ur Leukocyte Esterase (Negative) Ur Squamous Epith Cells (0-4) /hpf Urine Bacteria (None) /hpf Urine Mucus (None) /hpf U Marijuana (THC) Screen (NotDetected) Thrombosis Risk Factor Assmnt - DVT/VTE Prophylaxis DVT/VTE Prophylaxis: Pharmacologic Prophylaxis ordered, Mechanical Prophylaxis ordered - Choose All That Apply Any of the Below Risk Factors Present?: Yes Each Factor Represents 1 point: Obesity (BMI >25) Other Risk Factors: Yes Each Risk Factor Represents 2 Points: Age 61-74 years Thrombosis Risk Factor Assessment Total Risk Factor Score: 3 Thrombosis Risk Factor Assessment Level: Moderate Risk Assessment and Plan Plan: 1 severe symptomatic bradycardia: Patient will be hospitalized will keep watching patient on heart monitor TSH free T4 be done repeat EKG and consult cardiology, echocardiogram will be requested as well if patient remained bradycardic remain symptomatic she might need a pacemaker. 2 mild change mental status: CT of the brain did not show any major abnormality , but consistent with small vessel disease with previous TIA and CVA has not changed the last few years. With the severity of the bradycardia patient might have worsening mentation because of the bradycardia. 3 hypertension: Has not been well controlled Vasotec 2.5 g IV was giving patient can be started on lisinopril titrate dose higher and if needed clonidine 0.1 mg every 6 hour for systolic above 160 will be done. 4 hypothyroidism: Repeat TSH free T4. 5 UTI: Patient was started on antibiotics will watch for the final culture. 6 history of breast cancer: Has been in remission. 7 chronic history of depression: Has been on Zoloft 200 mg daily. 8 hyperlipidemia: Remain on Crestor 5 mg daily. 9 mild memory impairment: Most likely from small vessel disease and affected by mild metabolic encephalopathy and bradycardia try to treat underlying disease and if needed might benefit from memory medication in the future. 10 GERD/GI prophylaxis: Patient will be on Pepcid 20 mg daily. 11 DVT prophylaxis: Patient will be on heparin 5000 units subcutaneous twice a day. CODE STATUS: Full code. Admit patient to inpatient status for more than 2 nights.
[2018-03-15] MEDS: SODIUM CHLORIDE 0.9% 1,000 ML IV SCH ×2 (18:39)
[2018-03-16] MEDS: LEVOTHYROXINE 100 MCG TAB PO SCH (06:25)
[2018-03-16] MEDS: ASPIRIN 81 MG PO SCH (08:06)
[2018-03-16] MEDS: ATORVASTATIN 10 MG TAB PO SCH (08:06)
[2018-03-16] MEDS: cefTRIAXone IN SWFI 1,000 MG/10 ML SYRINGE IVP SCH (08:06)
[2018-03-16] MEDS: FERROUS SULFATE 325 MG TAB PO SCH (08:07)
[2018-03-16] MEDS: SERTRALINE 100 MG TAB PO SCH (08:07)
[2018-03-16] MEDS: CHOLECALCIFEROL 1,000 UNIT TAB PO SCH (08:07)
[2018-03-16] MEDS: SODIUM CHLORIDE 0.9% 1,000 ML IV SCH ×3 (08:10→17:40)
--- NOTE | 2018-03-16 11:36 | P.PN ---
Subjective 72-year-old female one of our office patient with past medical history of CVA/TIA, history of hypertension, history of memory impairment history of osteoarthritis and history of breast cancer who was in the office in 03-[address] Benjamin, patient found to be slightly confused having severe abnormal balance gait and presyncope with symptoms consistent with tiredness fatigue confusion not been able to ambulate have been having problem with her balance and gait. Through her exam found to have severely low pulse rate running in the 40s and have concern of TIA versus CVA. Patient was sent to the emergency department at [facility] where was seen and evaluated. Surprisingly blood pressure was moderately elevated her pulse rate continue to be in the low 40 no other abnormality her troponin came back negative normal chemistry and blood count magnesium was normal. CT of the brain showed left frontal increased density of the cortical area consistent with small area of residual calcification was found pre-or MRI and CAT scan. Patient was diagnosed with severe symptomatic bradycardia, presyncope along with systemic complain consistent with her bradycardia. Was admitted to the hospital might needed pacemaker. Patient troponin 3 will be done overnight will be seen cardiology and if no other factor for her bradycardia patient might need dual-chamber pacemaker. 03/16: Patient was evaluated today, she is still having symptomatic bradycardia. Heart rate is running in the 40s, blood pressure stable, plans are for a dual- chamber pacemaker tomorrow. She underwent echocardiogram yesterday, reveals EF between 55-60%, trace amount of aortic regurgitation, mild aortic stenosis, mild mitral regurgitation and mild tricuspid regurgitation. Objective - Vital Signs Vital signs: Vital Signs Temp 97.3 F L 03/16/18 07:58 Pulse 49 L 03/16/18 07:58 Resp 18 03/16/18 07:58 BP 119/58 03/16/18 07:58 Pulse Ox 95 03/16/18 07:58 Intake & Output 03/15/18 03/16/18 03/16/18 18:59 06:59 18:59 Intake Total 200 450 298 Balance 200 450 298 Weight 78.4 kg 80 kg Intake: Intake, IV Titration 450 Amount Sodium Chloride 0.9% 1, 450 000 ml @ 50 mls/hr IV . Q20H [facility] Rx#:[id number] Oral 200 298 Other: Voiding Method Toilet # Voids 1 1 - Constitutional General appearance: Present: cooperative, no acute distress - EENT Eyes: Present: PERRLA ENT: Present: hearing grossly normal - Neck Neck: Present: normal ROM. Absent: lymphadenopathy, thyromegaly - Respiratory Respiratory: bilateral: CTA, negative: rales, rhonchi, wheezing - Cardiovascular Rhythm: regular Heart sounds: normal: S1, S2 Abnormal Heart Sounds: Present: systolic murmur - Gastrointestinal General gastrointestinal: Present: normal bowel sounds, soft. Absent: distended , organomegaly, tenderness - Neurologic Neurologic: Present: CNII-XII intact. Absent: focal deficits - Musculoskeletal Musculoskeletal: Present: strength equal bilaterally - Psychiatric Psychiatric: Present: A&O x's 3 - Labs CBC & Chem 7: 03/14/18 16:11 03/14/18 16:11 Assessment and Plan Plan: 1 severe symptomatic bradycardia: Patient will be hospitalized will keep watching patient on heart monitor, TSH free T4 are WNL, repeat EKG, cardiology on consult, echocardiogram completed, plan for dual-chamber pacemaker on Tuesday. 2 mild change mental status: CT of the brain did not show any major abnormality , but consistent with small vessel disease with previous TIA and CVA has not changed the last few years. With the severity of the bradycardia patient might have worsening mentation because of the bradycardia. 3 hypertension: Has not been well controlled Vasotec 2.5 g IV was giving patient can be started on lisinopril titrate dose higher and if needed clonidine 0.1 mg every 6 hour for systolic above 160 will be done. 4 hypothyroidism: TSH free T4 are WNL 5 UTI: Patient was started on antibiotics will watch for the final culture. 6 history of breast cancer: Has been in remission. 7 chronic history of depression: Has been on Zoloft 200 mg daily. 8 hyperlipidemia: Remain on Crestor 5 mg daily. 9 mild memory impairment: Most likely from small vessel disease and affected by mild metabolic encephalopathy and bradycardia try to treat underlying disease and if needed might benefit from memory medication in the future. 10 GERD/GI prophylaxis: Patient will be on Pepcid 20 mg daily. 11 DVT prophylaxis: Patient will be on heparin 5000 units subcutaneous twice a day. CODE STATUS: Full code. The above impression and plan of care have been discussed and directed by signing physician. Nelsy Cruz nurse practitioner acting as scribe for signing physician.
--- NOTE | 2018-03-16 12:21 | P.PN ---
Subjective Progress Note Date: 03/16/18 This is a pleasant 72-year-old female who sees as her primary care doctor, she has history of hypothyroidism, hyperlipidemia, history of alcohol abuse, patient quit drinking 10 years ago. She presents to the hospital with symptoms of progressive tiredness as well as some mental status changes and forgetfulness. He also states that she's been getting intermittent headaches with blurring of vision. She denies any dizziness or lightheadedness , no syncope or near syncope. Cardiology consultation was requested because of bradycardia. EKG on arrival here showed a sinus bradycardia with a heart rate in the low 40s. CT of the brain showed left frontal increased density at the cortical convexity consistent with small area of residual calcification, also evident on prior CT. This was much larger on her prior CAT scan. Blood pressure on arrival 162/94 with a heart rate of 44, 96% on room air. Chest x- ray did not reveal any active cardiopulmonary disease. CBC is normal. Sodium 140, potassium 4.5, BUN 14, creatinine 0.6. Troponins negative 3. TSH 0.649. Magnesium 2.2. Mild UTI. Drug screen positive for marijuana. 03/16/2018 Patient was seen and examined this morning, doing well overall, no complaints of any dizziness or lightheadedness. She continues to have a heart rate in the 40s to 50s with a blood pressure of 144/60 this morning. TSH level is normal. Echocardiogram with Doppler study was performed which revealed a normal ejection fraction of 55-60%. Patient is scheduled to undergo implantation of a permanent pacemaker tomorrow with Dr. Dhillon. Procedure risks and complications have been explained to the patient and her niece who are at bedside. Objective - Vital Signs Vital signs: Vital Signs Temp 98.2 F 03/16/18 12:00 Pulse 54 L 03/16/18 12:00 Resp 18 03/16/18 12:00 BP 144/64 03/16/18 12:00 Pulse Ox 93 L 03/16/18 12:00 Intake & Output 03/15/18 03/16/18 03/16/18 18:59 06:59 18:59 Intake Total 200 450 298 Balance 200 450 298 Weight 78.4 kg 80 kg Intake: Intake, IV Titration 450 Amount Sodium Chloride 0.9% 1, 450 000 ml @ 50 mls/hr IV . Q20H [facility] Rx#:[id number] Oral 200 298 Other: Voiding Method Toilet # Voids 1 1 - Exam PHYSICAL EXAMINATION: GENERAL: 72-year-old female in no apparent HEENT: Head is atraumatic, normocephalic. Pupils equal, round. Sclera anicteric. Conjunctiva are clear. Mucous membranes of the mouth are moist. Neck is supple. There is no elevated jugular venous pressure.] No carotid bruit is heard. HEART EXAMINATION: Heart S1, S2 normal. No murmur or gallop heard. CHEST EXAMINATION: Lungs are clear to auscultation and precussion. No chest wall tenderness is noted on palpation or with deep breathing. ABDOMEN: Soft, nontender. Bowel sounds are heard. No organomegaly noted. EXTREMITIES: 2+ peripheral pulses with no evidence of peripheral edema and no calf tenderness noted. NEUROLOGIC patient is awake, alert and oriented -3. . - Labs CBC & Chem 7: 03/14/18 16:11 03/14/18 16:11 Assessment and Plan Plan: Assessment and plan #1 symptoms of tiredness and weakness, evidence of sinus bradycardia on EKG, TSH is normal. #2 mental status changes, CT of the brain does reveal a density of the clavicle convexity consistent with small area of residual calcification, much smaller than the prior exam of 2013. #3 hypothyroidism, on Synthroid, TSH level normal. #4 hyperlipidemia # 5 hypertension, uncontrolled #6 TIA #7 mildly UTI, started on antibiotics. Plan Patient is scheduled to undergo implantation of a permanent pacemaker tomorrow with Dr. Dhillon. DNP note has been reviewed, I agree with a documented findings and plan of care. Patient was seen and examined.
[2018-03-17] MEDS: LEVOTHYROXINE 100 MCG TAB PO SCH (06:23)
[2018-03-17] MEDS ORDERED: ceFAZolin IN SWFI 2 GM/20 ML SYRINGE IVP ONE (06:30)
[2018-03-17] MEDS ORDERED: ceFAZolin 1,000 MG in SODIUM CHLORIDE 0.9% IRRIGATIO 250 ML IRRIGATION ONE (06:30)
[2018-03-17] MEDS: cefTRIAXone IN SWFI 1,000 MG/10 ML SYRINGE IVP SCH (08:49)
[2018-03-17] MEDS: ATORVASTATIN 10 MG TAB PO SCH (08:50)
[2018-03-17] MEDS: ASPIRIN 81 MG PO SCH (08:50)
[2018-03-17] MEDS: SERTRALINE 100 MG TAB PO SCH (08:50)
[2018-03-17] MEDS: FERROUS SULFATE 325 MG TAB PO SCH (08:50)
[2018-03-17] MEDS: CHOLECALCIFEROL 1,000 UNIT TAB PO SCH (08:51)
[2018-03-17] MEDS: SODIUM CHLORIDE 0.9% 1,000 ML IV SCH (08:59)
[2018-03-17] MEDS ORDERED: IOPAMIDOL-300 50ML BTL IV ONE (10:35)
[2018-03-17] MEDS ORDERED: MIDAZOLAM 2 MG/2 ML VIAL IV ONE (10:45)
[2018-03-17] MEDS ORDERED: MIDAZOLAM 2 MG/2 ML VIAL ONE (10:46)
[2018-03-17] MEDS ORDERED: SODIUM CHLORIDE 0.9% 1,000 ML IV ONE (10:54)
[2018-03-17] MEDS ORDERED: NITROGLYCERIN OINT 1 INCH/GM PACKET TOPICAL ONE ×2 (11:00→11:03)
[2018-03-17] MEDS ORDERED: LIDOCAINE 1% INJ 10MG/ML (20 ML MDV) SQ ONE ×2 (11:00→11:10)
--- NOTE | 2018-03-17 11:34 | P.PN ---
Subjective Progress Note Date: 03/17/18 Principal diagnosis: Severe symptomatic bradycardia will require pacemaker, change mental status, hypertension, hypothyroidism, UTI, history of breast cancer and debility. 72-year-old female one of our office patient with past medical history of CVA/TIA, history of hypertension, history of memory impairment history of osteoarthritis and history of breast cancer who was in the office in 03-[address] Benjamin, patient found to be slightly confused having severe abnormal balance gait and presyncope with symptoms consistent with tiredness fatigue confusion not been able to ambulate have been having problem with her balance and gait. Through her exam found to have severely low pulse rate running in the 40s and have concern of TIA versus CVA. Patient was sent to the emergency department at [facility] where was seen and evaluated. Surprisingly blood pressure was moderately elevated her pulse rate continue to be in the low 40 no other abnormality her troponin came back negative normal chemistry and blood count magnesium was normal. CT of the brain showed left frontal increased density of the cortical area consistent with small area of residual calcification was found pre-or MRI and CAT scan. Patient was diagnosed with severe symptomatic bradycardia, presyncope along with systemic complain consistent with her bradycardia. Was admitted to the hospital might needed pacemaker. Patient troponin 3 will be done overnight will be seen cardiology and if no other factor for her bradycardia patient might need dual-chamber pacemaker. 03/16: Patient was evaluated today, she is still having symptomatic bradycardia. Heart rate is running in the 40s, blood pressure stable, plans are for a dual- chamber pacemaker tomorrow. She underwent echocardiogram yesterday, reveals EF between 55-60%, trace amount of aortic regurgitation, mild aortic stenosis, mild mitral regurgitation and mild tricuspid regurgitation. 03/17: Patient is going for pacemaker today, consult administrator social welfare and physical therapy will increased mobility and activity and patient might need to go to short-term rehab after pacemaker. Objective - Vital Signs Vital signs: Vital Signs Temp 97.0 F L 03/17/18 04:00 Pulse 47 L 03/17/18 04:00 Resp 16 03/17/18 04:00 BP 134/67 03/17/18 04:00 Pulse Ox 95 03/17/18 04:00 Intake & Output 03/16/18 03/17/18 03/17/18 18:59 06:59 18:59 Intake Total 1078 800 Balance 1078 800 Weight 80.2 kg Intake: Intake, IV Titration 400 800 Amount Sodium Chloride 0.9% 1, 400 800 000 ml @ 50 mls/hr IV . Q20H [facility] Rx#:[id number] Oral 678 Other: Voiding Method Toilet Toilet # Voids 3 - Exam Review of system: CONSTITUTIONAL: Well-developed no acute respiratory distress. EYES: No icterus sclerae, no conjunctivitis. EARS, NOSE, MOUTH, THROAT, and FACE: No sore throat, lymphadenopathy, carotid bruits or deformity. RESPIRATORY: No SOB cough or wheezes. CARDIOVASCULAR: No CP, Palpitation, PND, Orthopnea, or angina. GASTROINTESTINAL: No Abd pain, Nausea or vomiting, no Diarrhea or constipation, No GI Bleed, no distention or masses. GENITOURINARY: Negative for Hematuria or UTI, no kidney stones. INTEGUMENT/BREAST: Negative for any muscular injury with mild osteoarthritis.. HEMATOLOGIC/LYMPHATIC: Negative for bleed or purpura. MUSCULOSKELTAL: Negative for Myalgia or arthralgia. NEURLOGICAL: No LOC, Sz or syncope, blurred vision dizziness or abnormality.. BEHAVIORAL/PSYCH: Negative. ENDOCRINE: Negative. Physical examination: General Appearance: Alert, cooperative, no distress, appears stated age. Neck HEENT: Supple, no lymphadenopathy, no thyroid enlargement, no carotid bruits. Lungs: Clear to auscultation without crackles or wheezes no rhonchi, no deformity. Chest Wall: Chest wall normal expansion with deep inspiration no tenderness and no deformity was found on exam, no costochondral pain or discomfort. Heart: Regular rate and rhythm, S1, S2 positive S3, positive bradycardia, 2/6 ejection systolic murmur in the apex. Back: Symmetric, no curvature, ROM normal, no CVA tenderness. Abdomen: Soft, non-tender, bowel sounds active all four quadrants, no masses, no organomegaly. Extremities: Trace edema bilaterally, positive mild osteoarthritis with crepitus joint specially in the knees. Pulses: 2+ and symmetric. Skin: Skin color, texture, tugor normal, no rashes or lesions. Neurologic: cranial nerves II through XII intact, no motor deficit, positive normal balance and gait, alert oriented with slight confusion.. - Labs CBC & Chem 7: 03/14/18 16:11 03/14/18 16:11 Assessment and Plan Plan: 1 severe symptomatic bradycardia: Patient will be hospitalized will keep watching patient on heart monitor TSH free T4 be done repeat EKG and consult cardiology, patient is going for pacemaker today. 2 mild change mental status: Mostly encephalopathy related to bradycardia and her general condition along with the effect of her memory loss with a previous CVA. 3 hypertension: Blood pressure is much better and well controlled today. 4 hypothyroidism: Repeat TSH free T4. 5 UTI: Patient was started on antibiotics will watch for the final culture. 6 history of breast cancer: Has been in remission. 7 chronic history of depression: Has been on Zoloft 200 mg daily. 8 hyperlipidemia: Remain on Crestor 5 mg daily. 9 mild memory impairment: Most likely from small vessel disease and affected by mild metabolic encephalopathy and bradycardia try to treat underlying disease and if needed might benefit from memory medication in the future. 10 GERD/GI prophylaxis: Patient will be on Pepcid 20 mg daily.
[2018-03-17] MEDS ORDERED: HYDROcodone/APAP 5-325MG 1 EACH TAB PO PRN (12:00)
[2018-03-17] MEDS: amLODIPine 10 MG TAB PO SCH (12:46)
--- NOTE | 2018-03-17 12:56 | CE ---
CARDIAC ELECTROPHYSIOLOGY REPORT A 72-year-old female presenting with dizziness and weakness and feeling very tired and fatigued. She was found to be in sinus bradycardia in the low 40s during the daytime while awake without any incriminating drugs and a normal potassium and normal TSH. A dual-chamber pacemaker was recommended for symptomatic sick sinus syndrome. Patient was brought to the EP lab in a fasting state. Written informed consent was obtained prior to the procedure. The left shoulder area was prepped and draped as per protocol and 1% lidocaine was used for local anesthesia. A 4 cm incision was made parallel to the deltopectoral groove, about 1.5 cm medial to it the incision was carried down to the level of the pectoralis muscle. A subfascial pocket was made. Hemostasis was assured. The left axillary vein was accessed at 2 separate points under fluoroscopy and via appropriately-sized sheaths, two leads were positioned the right heart. The atrial lead was 45 cm tined lead position in the right atrial appendage. This was a Medtronic model #4574, serial #[id number]. P waves 4.1 mV, pacing threshold 0.4 V at 0.5 milliseconds. Ten volt test was negative. The RV lead was positioned in the RV apex. This was a Medtronic lead model #4074, serial #[id number]. The R-wave 6.4 mV, pacing threshold 0.7 V at 0.5 milliseconds. Pacing impedance of 1135 ohms. Ten volte test was negative. Both leads were secured to the underlying pectoralis fascia using 2 nonabsorbable sutures. Pocket was irrigated with antibiotic solution. Leads were connected to the generator (Medtronic Margaux SDR MRI, model #W3DR01, serial #[id number]. Leads and generator were then placed a subfascial pocket. The wound was closed in 3 layers and dressed per protocol. RESULTS: Successful dual chamber pacemaker implantation for symptomatic sick sinus syndrome. Pacemaker has been programmed to DDDR 50 to 120 bpm. MMODL / IJN: [id number] /
[2018-03-17] MEDS ORDERED: ACETAMINOPHEN IV (For NPO) 1,000 MG in EMPTY BAG 1 BAG IVPB ONE (13:00)
[2018-03-17] MEDS: ceFAZolin IN SWFI 2 GM/20 ML SYRINGE IVP SCH (15:09)
[2018-03-17] MEDS ORDERED: ONDANSETRON 4 MG TAB PO ONE (18:10)
[2018-03-17] MEDS: ACETAMINOPHEN TAB 325 MG TAB PO PRN (18:49)
[2018-03-18] MEDS: ceFAZolin IN SWFI 2 GM/20 ML SYRINGE IVP SCH ×3 (02:22→10:18)
[2018-03-18] MEDS: SODIUM CHLORIDE 0.9% 1,000 ML IV SCH ×2 (02:31)
[2018-03-18 06:34] LABS: Basophils % (A) 0 %; Eosinophils # (A) 0.1 k/uL (0-0.7); Eosinophils % (A) 2 %; HCT 43.4 % (34.0-46.0); HGB 14.3 gm/dL (11.4-16.0); Lymphocytes # (A) 1.1 k/uL (1.0-4.8); Lymphocytes % (A) 19 %; MCH 29.7 pg (25.0-35.0); Mean Platelet Volume 8.2; Monocytes # (A) 0.3 k/uL (0-1.0); Monocytes % (A) 5 %; Neutrophils # (A) 4.2 k/uL (1.3-7.7); Neutrophils % (A) 72 %; Platelet Count 131 k/uL (150-450); RBC 4.82 m/uL (3.80-5.40); RDW 15.9 % (11.5-15.5); WBC 5.8 k/uL (3.8-10.6)
[2018-03-18 06:51] LABS: ALT 23 U/L (9-52); AST 24 U/L (14-36); Albumin 3.5 g/dL (3.5-5.0); Alkaline Phosphatase 69 U/L (38-126); Anion Gap 8 mmol/L; Blood Urea Nitrogen 7 mg/dL (7-17); Calcium 8.8 mg/dL (8.4-10.2); Carbon Dioxide 26 mmol/L (22-30); Chloride 105 mmol/L (98-107); Glucose 101 mg/dL (74-99); Potassium 3.8 mmol/L (3.5-5.1); Sodium 139 mmol/L (137-145); Total Bilirubin 0.3 mg/dL (0.2-1.3); Total Protein 5.5 g/dL (6.3-8.2)
[2018-03-18] MEDS: ACETAMINOPHEN TAB 325 MG TAB PO PRN (07:00)
[2018-03-18] MEDS: amLODIPine 10 MG TAB PO SCH (07:01)
[2018-03-18] MEDS: LEVOTHYROXINE 100 MCG TAB PO SCH (07:01)
--- NOTE | 2018-03-18 07:32 | XR ---
EXAMINATION TYPE: XR chest 2V DATE OF EXAM: 03/18/2018 COMPARISON: 03/14/2018 HISTORY: 73 year-old female post pacemaker placement TECHNIQUE: AP and lateral views FINDINGS: Left anterior chest wall pacemaker generator with right atrial and right ventricular leads. No apprec iable pneumothorax. Heart remains enlarged. Mild elongation of the thoracic aorta. There may be some strandy left mid lung atelectasis. No evidence consolidation or pleural effusion on the lateral view. IMPRESSION: 1. Left-sided 2-lead pacemaker generator. 2. Similar cardiomegaly. No definite acute process.
[2018-03-18] MEDS: cefTRIAXone IN SWFI 1,000 MG/10 ML SYRINGE IVP SCH (08:31)
[2018-03-18] MEDS: ASPIRIN 81 MG PO SCH (08:32)
[2018-03-18] MEDS: FERROUS SULFATE 325 MG TAB PO SCH (08:32)
[2018-03-18] MEDS: ATORVASTATIN 10 MG TAB PO SCH (08:32)
[2018-03-18] MEDS: CHOLECALCIFEROL 1,000 UNIT TAB PO SCH (08:32)
[2018-03-18] MEDS: SERTRALINE 100 MG TAB PO SCH (10:18)
--- NOTE | 2018-03-18 12:15 | P.PN ---
Subjective Severe symptomatic bradycardia will require pacemaker, change mental status, hypertension, hypothyroidism, UTI, history of breast cancer and debility. 72-year-old female one of our office patient with past medical history of CVA/TIA, history of hypertension, history of memory impairment history of osteoarthritis and history of breast cancer who was in the office in 03-[address] Benjamin, patient found to be slightly confused having severe abnormal balance gait and presyncope with symptoms consistent with tiredness fatigue confusion not been able to ambulate have been having problem with her balance and gait. Through her exam found to have severely low pulse rate running in the 40s and have concern of TIA versus CVA. Patient was sent to the emergency department at [facility] where was seen and evaluated. Surprisingly blood pressure was moderately elevated her pulse rate continue to be in the low 40 no other abnormality her troponin came back negative normal chemistry and blood count magnesium was normal. CT of the brain showed left frontal increased density of the cortical area consistent with small area of residual calcification was found pre-or MRI and CAT scan. Patient was diagnosed with severe symptomatic bradycardia, presyncope along with systemic complain consistent with her bradycardia. Was admitted to the hospital might needed pacemaker. Patient troponin 3 will be done overnight will be seen cardiology and if no other factor for her bradycardia patient might need dual-chamber pacemaker. 03/16: Patient was evaluated today, she is still having symptomatic bradycardia. Heart rate is running in the 40s, blood pressure stable, plans are for a dual- chamber pacemaker tomorrow. She underwent echocardiogram yesterday, reveals EF between 55-60%, trace amount of aortic regurgitation, mild aortic stenosis, mild mitral regurgitation and mild tricuspid regurgitation. 03/17: Patient is going for pacemaker today, consult forensic social worker and physical therapy will increased mobility and activity and patient might need to go to short-term rehab after pacemaker. 03/18: Patient underwent dual chamber pacemaker yesterday. She was noted to be hypertensive during the procedure and also afterward. Cardiology started her on Amlodipine yesterday, this morning blood pressure was well controlled at 128\ 72. [facility] requesting to hold patient for the next 24 hours to monitor heart rate and blood pressure. She will most likely be discharged tuesday to an [facility] for rehab. Objective - Vital Signs Vital signs: Vital Signs Temp 97.3 F L 03/18/18 08:20 Pulse 54 L 03/18/18 08:20 Resp 16 03/18/18 08:20 BP 128/72 03/18/18 08:25 Pulse Ox 91 L 03/18/18 08:20 Intake & Output 03/17/18 03/18/18 03/18/18 18:59 06:59 18:59 Intake Total 946 Balance 946 Weight 80 kg Intake: IV 150 Oral 796 Other: Voiding Method Toilet Toilet # Voids 2 1 - Exam General Appearance: Alert, cooperative, no distress, appears stated age. Neck HEENT: Supple, no lymphadenopathy, no thyroid enlargement, no carotid bruits. Lungs: Clear to auscultation without crackles or wheezes no rhonchi, no deformity. Chest Wall: Chest wall normal expansion with deep inspiration no tenderness and no deformity was found on exam, no costochondral pain or discomfort. Heart: Regular rate and rhythm, S1, S2 positive S3, positive bradycardia, 2/6 ejection systolic murmur in the apex. Back: Symmetric, no curvature, ROM normal, no CVA tenderness. Abdomen: Soft, non-tender, bowel sounds active all four quadrants, no masses, no organomegaly. Extremities: Trace edema bilaterally, positive mild osteoarthritis with crepitus joint specially in the knees. Pulses: 2+ and symmetric. Skin: Skin color, texture, tugor normal, no rashes or lesions. Neurologic: cranial nerves II through XII intact, no motor deficit, positive normal balance and gait, alert oriented with slight confusion.. - Labs CBC & Chem 7: 03/18/18 05:49 03/18/18 05:49 Labs: Abnormal Lab Results - Last 24 Hours (Table) 03/18/18 03/18/18 Range/Units 05:49 05:49 RDW 15.9 H (11.5-15.5) % Plt Count 131 L (150-450) k/uL Creatinine 0.50 L (0.52-1.04) mg/dL Glucose 101 H (74-99) mg/dL Total Protein 5.5 L (6.3-8.2) g/dL Assessment and Plan Plan: 1 severe symptomatic bradycardia: Patient will be hospitalized will keep watching patient on heart monitor TSH free T4 be done repeat EKG and consult cardiology, pacemaker placed yesterday. 2 mild change mental status: Mostly encephalopathy related to bradycardia and her general condition along with the effect of her memory loss with a previous CVA. 3 hypertension: Blood pressure is much better and well controlled today, continue amlodipine 10 mg daily. 4 hypothyroidism: Repeat TSH free T4. 5 UTI: Patient was started on ceftriaxone 1000 mg every 24 hours. 6 history of breast cancer: Has been in remission. 7 chronic history of depression: Has been on Zoloft 200 mg daily. 8 hyperlipidemia: Remain on Crestor 5 mg daily. 9 mild memory impairment: Most likely from small vessel disease and affected by mild metabolic encephalopathy and bradycardia try to treat underlying disease and if needed might benefit from memory medication in the future. 10 GERD/GI prophylaxis: Patient will be on Pepcid 20 mg daily. The above impression and plan of care have been discussed and directed by signing physician. Nelsy Cruz nurse practitioner acting as scribe for signing physician.
--- NOTE | 2018-03-18 12:38 | PN ---
PROGRESS NOTE Brooklyn Chiang is a 73-year-old female who presented with symptomatic sick sinus syndrome with sinus bradycardia. She underwent dual chamber pacemaker yesterday. Her pacemaker is functioning normally. It was interrogated this morning. Thresholds, sensing and impedances are stable and excellent. She underwent a chest x-ray which did not show any evidence for pneumothorax. In addition, her blood pressure was elevated and I started on amlodipine yesterday. PHYSICAL EXAMINATION: On examination, she is afebrile, 97.3 degrees Fahrenheit, pulse rate in the 50s and blood pressure 148/78 mmHg. Head neck examination normal. Heart sounds are normal. Lungs are clear to auscultation. Extremities are warm, no edema. IMPRESSION: 1. Symptomatic sick sinus syndrome. 2. Hypertension. SUGGEST: 1. Pacemaker is functioning normally. 2. She does have hypertension. Amlodipine 10 mg daily has been started. I would not add any further medications for the next 2-3 days. She may go home from a cardiac standpoint whenever it is okay with Internal Medicine. Antibiotics will be completed today. She will follow up with Dr. Dhillon first in the device clinic and 5 days post discharge and then again in 4 weeks. Amlodipine must be prescribed 10 mg p.o. daily. MMODL / IJN: [id number] /
[2018-03-19] MEDS: LEVOTHYROXINE 100 MCG TAB PO SCH (06:44)
[2018-03-19] MEDS: cefTRIAXone IN SWFI 1,000 MG/10 ML SYRINGE IVP SCH (08:25)
[2018-03-19] MEDS: ATORVASTATIN 10 MG TAB PO SCH (08:26)
[2018-03-19] MEDS: ASPIRIN 81 MG PO SCH (08:26)
[2018-03-19] MEDS: amLODIPine 10 MG TAB PO SCH (08:26)
[2018-03-19] MEDS: FERROUS SULFATE 325 MG TAB PO SCH (08:26)
[2018-03-19] MEDS: CHOLECALCIFEROL 1,000 UNIT TAB PO SCH (08:26)
[2018-03-19] MEDS: ACETAMINOPHEN TAB 325 MG TAB PO PRN (08:26)
[2018-03-19] MEDS: SERTRALINE 100 MG TAB PO SCH (08:26)
--- NOTE | 2018-03-19 11:25 | PN ---
PROGRESS NOTE Brooklyn Chiang is a 73-year-old female who presented with symptomatic sick sinus syndrome and sinus bradycardia and underwent a dual-chamber pacemaker 2 days back. The pacemaker is functioning normally. She is doing fairly well. The other issue with her was elevated blood pressures and I started her on amlodipine. While her blood pressure is not completely in the normal range, amlodipine has just been started, but her blood pressures are a lot better than before, ranged from 130s to 150 mmHg with diastolics being in the 60s and 70s. She is afebrile. Pulse rate is 50 to 60 beats per minute. Pacemaker was programmed to DDDR 50 to 120 ppm. Heart sounds are normal. Breath sounds are clear. There is a little in the pacemaker area, but there was no significant hematoma. Breath sounds are equal bilaterally. No rhonchi, no crackles. Heart sounds S1, S2 are normal. No murmurs or gallops and no rub. I explained to her the pacemaker area needs to be kept dry for 5 days. She will follow up in the device clinic in 5 days and then follow up in 4 weeks for further blood pressure management. She will go to an extended care facility hopefully on Tuesday. MMODL / IJN: [id number] /
--- NOTE | 2018-03-19 12:21 | P.PN ---
Subjective Severe symptomatic bradycardia will require pacemaker, change mental status, hypertension, hypothyroidism, UTI, history of breast cancer and debility. 72-year-old female one of our office patient with past medical history of CVA/TIA, history of hypertension, history of memory impairment history of osteoarthritis and history of breast cancer who was in the office in 03-[address] Benjamin, patient found to be slightly confused having severe abnormal balance gait and presyncope with symptoms consistent with tiredness fatigue confusion not been able to ambulate have been having problem with her balance and gait. Through her exam found to have severely low pulse rate running in the 40s and have concern of TIA versus CVA. Patient was sent to the emergency department at [facility] where was seen and evaluated. Surprisingly blood pressure was moderately elevated her pulse rate continue to be in the low 40 no other abnormality her troponin came back negative normal chemistry and blood count magnesium was normal. CT of the brain showed left frontal increased density of the cortical area consistent with small area of residual calcification was found pre-or MRI and CAT scan. Patient was diagnosed with severe symptomatic bradycardia, presyncope along with systemic complain consistent with her bradycardia. Was admitted to the hospital might needed pacemaker. Patient troponin 3 will be done overnight will be seen cardiology and if no other factor for her bradycardia patient might need dual-chamber pacemaker. 03/16: Patient was evaluated today, she is still having symptomatic bradycardia. Heart rate is running in the 40s, blood pressure stable, plans are for a dual- chamber pacemaker tomorrow. She underwent echocardiogram yesterday, reveals EF between 55-60%, trace amount of aortic regurgitation, mild aortic stenosis, mild mitral regurgitation and mild tricuspid regurgitation. 03/17: Patient is going for pacemaker today, consult psych social worker and physical therapy will increased mobility and activity and patient might need to go to short-term rehab after pacemaker. 03/18: Patient underwent dual chamber pacemaker yesterday. She was noted to be hypertensive during the procedure and also afterward. Cardiology started her on Amlodipine yesterday, this morning blood pressure was well controlled at 128\ 72. Carediology requesting to hold patient for the next 24 hours to monitor heart rate and blood pressure. She will most likely be discharged tuesday to an [facility] for rehab. 03/19: Patient's doing well after her dual-chamber pacemaker placement. Blood pressure has improved, 152/78, with a heart rate of 50, she continues on amlodipine 10 mg daily. She is cleared from a cardiac standpoint, she is now waiting for ECF placement, which will most likely be completed on Tuesday Objective - Vital Signs Vital signs: Vital Signs Temp 97.8 F 03/19/18 08:20 Pulse 50 L 03/19/18 08:20 Resp 16 03/19/18 08:20 BP 152/78 03/19/18 08:20 Pulse Ox 91 L 03/19/18 08:20 Intake & Output 03/18/18 03/19/18 03/19/18 18:59 06:59 18:59 Intake Total 240 120 Output Total 50 Balance 240 -50 120 Weight 77 kg Intake: Oral 240 120 Output: Stool 50 Other: Voiding Method Toilet Toilet # Voids 1 0 - Exam General Appearance: Alert, cooperative, no distress, appears stated age. Neck HEENT: Supple, no lymphadenopathy, no thyroid enlargement, no carotid bruits. Lungs: Clear to auscultation without crackles or wheezes no rhonchi, no deformity. Chest Wall: Chest wall normal expansion with deep inspiration no tenderness and no deformity was found on exam, no costochondral pain or discomfort. Heart: Regular rate and rhythm, S1, S2 positive S3, positive bradycardia, 2/6 ejection systolic murmur in the apex. Back: Symmetric, no curvature, ROM normal, no CVA tenderness. Abdomen: Soft, non-tender, bowel sounds active all four quadrants, no masses, no organomegaly. Extremities: Trace edema bilaterally, positive mild osteoarthritis with crepitus joint specially in the knees. Pulses: 2+ and symmetric. Skin: Skin color, texture, tugor normal, no rashes or lesions. Neurologic: cranial nerves II through XII intact, no motor deficit, positive normal balance and gait, alert oriented - Labs CBC & Chem 7: 03/18/18 05:49 03/18/18 05:49 Assessment and Plan Plan: 1 severe symptomatic bradycardia: Patient will be hospitalized will keep watching patient on heart monitor TSH free T4 are WNL, repeat EKG and consult cardiology, pacemaker placed yesterday. 2 mild change mental status: Mostly encephalopathy related to bradycardia and her general condition along with the effect of her memory loss with a previous CVA, stable and has improved. 3 hypertension: Blood pressure is much better and well controlled today, continue amlodipine 10 mg daily. 4 hypothyroidism: Repeat TSH free T4 are WNL 5 UTI: Patient was started on ceftriaxone 1000 mg every 24 hours. 6 history of breast cancer: Has been in remission. 7 chronic history of depression: Has been on Zoloft 200 mg daily. 8 hyperlipidemia: Remain on Crestor 5 mg daily. 9 mild memory impairment: Most likely from small vessel disease and affected by mild metabolic encephalopathy and bradycardia try to treat underlying disease and if needed might benefit from memory medication in the future. 10 GERD/GI prophylaxis: Patient will be on Pepcid 20 mg daily. The above impression and plan of care have been discussed and directed by signing physician. Nelsy Cruz nurse practitioner acting as scribe for signing physician.
[2018-03-20] MEDS: LEVOTHYROXINE 100 MCG TAB PO SCH (06:15)
[2018-03-20] MEDS: ATORVASTATIN 10 MG TAB PO SCH (09:46)
[2018-03-20] MEDS: CHOLECALCIFEROL 1,000 UNIT TAB PO SCH (09:46)
[2018-03-20] MEDS: FERROUS SULFATE 325 MG TAB PO SCH (09:46)
[2018-03-20] MEDS: SERTRALINE 100 MG TAB PO SCH (09:46)
[2018-03-20] MEDS: ASPIRIN 81 MG PO SCH (09:46)
[2018-03-20] MEDS: cefTRIAXone IN SWFI 1,000 MG/10 ML SYRINGE IVP SCH (09:46)
[2018-03-20] MEDS: amLODIPine 10 MG TAB PO SCH (09:46)
--- NOTE | 2018-03-20 10:31 | P.PN ---
Subjective Progress Note Date: 03/20/18 This is a pleasant 72-year-old female who sees as her primary care doctor, she has history of hypothyroidism, hyperlipidemia, history of alcohol abuse, patient quit drinking 10 years ago. She presents to the hospital with symptoms of progressive tiredness as well as some mental status changes and forgetfulness. He also states that she's been getting intermittent headaches with blurring of vision. She denies any dizziness or lightheadedness , no syncope or near syncope. Cardiology consultation was requested because of bradycardia. EKG on arrival here showed a sinus bradycardia with a heart rate in the low 40s. CT of the brain showed left frontal increased density at the cortical convexity consistent with small area of residual calcification, also evident on prior CT. This was much larger on her prior CAT scan. Blood pressure on arrival 162/94 with a heart rate of 44, 96% on room air. Chest x- ray did not reveal any active cardiopulmonary disease. CBC is normal. Sodium 140, potassium 4.5, BUN 14, creatinine 0.6. Troponins negative 3. TSH 0.649. Magnesium 2.2. Mild UTI. Drug screen positive for marijuana. 03/16/2018 Patient was seen and examined this morning, doing well overall, no complaints of any dizziness or lightheadedness. She continues to have a heart rate in the 40s to 50s with a blood pressure of 144/60 this morning. TSH level is normal. Echocardiogram with Doppler study was performed which revealed a normal ejection fraction of 55-60%. Patient is scheduled to undergo implantation of a permanent pacemaker tomorrow with Dr. Dhillon. Procedure risks and complications have been explained to the patient and her niece who are at bedside. 03/20/2018 Patient is status post implantation of a permanent pacemaker. She was seen and examined this morning, doing well, in transfer to [facility] today. Blood pressure 142 /70 with a heart 50s, 95% on room air. Objective - Vital Signs Vital signs: Vital Signs Temp 97.6 F 03/20/18 04:00 Pulse 50 L 03/20/18 04:00 Resp 16 03/20/18 04:00 BP 150/80 03/20/18 04:00 Pulse Ox 95 03/20/18 04:00 Intake & Output 06/24/18 06/25/18 06/25/18 18:59 06:59 18:59 Intake Total 240 300 180 Output Total 0 Balance 240 300 180 Weight 79.5 kg Intake: Oral 240 300 180 Output: Urine 0 Other: Voiding Method Toilet Toilet # Voids 1 1 - Exam PHYSICAL EXAMINATION: GENERAL: 72-year-old female in no apparent HEENT: Head is atraumatic, normocephalic. Pupils equal, round. Sclera anicteric. Conjunctiva are clear. Mucous membranes of the mouth are moist. Neck is supple. There is no elevated jugular venous pressure.] No carotid bruit is heard. HEART EXAMINATION: Heart S1, S2 normal. No murmur or gallop heard. CHEST EXAMINATION: Lungs are clear to auscultation and precussion. No chest wall tenderness is noted on palpation or with deep breathing. Site of pacemaker implantation, dressing is dry and intact. ABDOMEN: Soft, nontender. Bowel sounds are heard. No organomegaly noted. EXTREMITIES: 2+ peripheral pulses with no evidence of peripheral edema and no calf tenderness noted. NEUROLOGIC patient is awake, alert and oriented -3. . - Labs CBC & Chem 7: 03/18/18 05:49 03/18/18 05:49 Assessment and Plan Plan: Assessment and plan #1 symptoms of tiredness and weakness, evidence of sinus bradycardia on EKG, TSH is normal. Status post implantation of a permanent pacemaker #2 mental status changes, CT of the brain does reveal a density of the clavicle convexity consistent with small area of residual calcification, much smaller than the prior exam of 2013. #3 hypothyroidism, on Synthroid, TSH level normal. #4 hyperlipidemia # 5 hypertension, uncontrolled #6 TIA #7 mildly UTI, started on antibiotics. Plan From cardiology's perspective, patient may be able to be discharged once cleared by primary. She will have a five-day follow-up in the device clinic and a four-week follow-up with Dr. Dhillon in the office. DNP note has been reviewed, I agree with a documented findings and plan of care. Patient was seen and examined.
[2018-03-20 12:09] VITALS: RESP 18
--- NOTE | 2018-03-20 12:10 | P.DS ---
Providers Date of admission: 03/14/18 19:16 Attending physician: Darling Newton Consults: 03/14/18 19:16 Consult Physician Urgent Consulting Provider: Sotero Cárdenas Consult Reason/Comments: Symptomatic bradycardia Do you want consulting provider notified?: Yes Primary care physician: Darling Newton Hospital Course: 72-year-old female one of our office patient with past medical history of CVA/TIA, history of hypertension, history of memory impairment history of osteoarthritis and history of breast cancer who was in the office in 03-[address] Benjamin, patient found to be slightly confused having severe abnormal balance gait and presyncope with symptoms consistent with tiredness fatigue confusion not been able to ambulate have been having problem with her balance and gait. Through her exam found to have severely low pulse rate running in the 40s and have concern of TIA versus CVA. Patient was sent to the emergency department at [facility] where was seen and evaluated. Surprisingly blood pressure was moderately elevated her pulse rate continue to be in the low 40 no other abnormality her troponin came back negative normal chemistry and blood count magnesium was normal. CT of the brain showed left frontal increased density of the cortical area consistent with small area of residual calcification was found pre-or MRI and CAT scan. Patient was diagnosed with severe symptomatic bradycardia, presyncope along with systemic complain consistent with her bradycardia. Was admitted to the hospital might needed pacemaker. Patient troponin 3 will be done overnight will be seen cardiology and if no other factor for her bradycardia patient might need dual-chamber pacemaker. 03/16: Patient was evaluated today, she is still having symptomatic bradycardia. Heart rate is running in the 40s, blood pressure stable, plans are for a dual- chamber pacemaker tomorrow. She underwent echocardiogram yesterday, reveals EF between 55-60%, trace amount of aortic regurgitation, mild aortic stenosis, mild mitral regurgitation and mild tricuspid regurgitation. 03/17: Patient is going for pacemaker today, consult social science teacher and physical therapy will increased mobility and activity and patient might need to go to short-term rehab after pacemaker. 03/18: Patient underwent dual chamber pacemaker yesterday. She was noted to be hypertensive during the procedure and also afterward. Cardiology started her on Amlodipine yesterday, this morning blood pressure was well controlled at 128\ 72. Carediology requesting to hold patient for the next 24 hours to monitor heart rate and blood pressure. She will most likely be discharged tuesday to an ECF for rehab. 03/19: Patient's doing well after her dual-chamber pacemaker placement. Blood pressure has improved, 152/78, with a heart rate of 50, she continues on amlodipine 10 mg daily. She is cleared from a cardiac standpoint, she is now waiting for ECF placement, which will most likely be completed on Tuesday 03/20: Patient was noted this morning, she is doing well status post placement of her pacemaker. Vital signs are stable blood pressure 150/80, heart rate is running in the 50s. She'll be discharged today to ECF, she'll have a follow-up with cardiology, 5 day follow-up in the device clinic and a four week follow-up with Dr. Knowles in the office. Discharge diagnoses 1 severe symptomatic bradycardia status post pacemaker placement 2 mild change mental status: Mostly encephalopathy related to bradycardia 3 hypertension 4 hypothyroidism 5 UTI 6 history of breast cancer 7 chronic history of depression 8 hyperlipidemia 9 mild memory impairment: Most likely from small vessel disease and affected by mild metabolic encephalopathy and bradycardia 10 GERD/GI prophylaxis The above impression and plan of care have been discussed and directed by signing physician. Nelsy Cruz nurse practitioner acting as scribe for signing physician. Patient Condition at Discharge: Good Plan - Discharge Summary Discharge Rx Participant: Yes New Discharge Prescriptions: New amLODIPine [Norvasc] 10 mg PO DAILY #0 tab Aspirin 81 mg PO DAILY chew Cefuroxime [Ceftin] 250 mg PO BID #14 tab Continue Levothyroxine Sodium [Synthroid] 100 mcg PO DAILY Ferrous Sulfate [Iron (65 MG Elemental)] 325 mg PO DAILY Cholecalciferol [Vitamin D3] 5,000 unit PO DAILY Sertraline [Zoloft] 100 mg PO DAILY Rosuvastatin Calcium [Crestor] 5 mg PO DAILY Discontinued LORazepam [Ativan] 1 mg PO DAILY PRN PRN Reason: Anxiety Discharge Medication List Levothyroxine Sodium [Synthroid] 100 mcg PO DAILY 03/15/14 [History] Cholecalciferol [Vitamin D3] 5,000 unit PO DAILY 03/14/18 [History] Ferrous Sulfate [Iron (65 MG Elemental)] 325 mg PO DAILY 03/14/18 [History] Rosuvastatin Calcium [Crestor] 5 mg PO DAILY 03/14/18 [History] Sertraline [Zoloft] 100 mg PO DAILY 03/14/18 [History] Aspirin 81 mg PO DAILY chew 03/19/18 [Rx] Cefuroxime [Ceftin] 250 mg PO BID #14 tab 03/19/18 [Rx] amLODIPine [Norvasc] 10 mg PO DAILY #0 tab 03/19/18 [Rx] Follow up Appointment(s)/Referral(s): Lenny Dhillon MD [STAFF PHYSICIAN] - 4 Weeks (Device clinic follow-up in 5 days Follow-up with Dr. Lance in 4 weeks) Darling Newton MD [Primary Care Provider] - 03/22/18 10:30 am (Tuesday with [employer] OPERATOR) [facility], [NON-STAFF] - Activity/Diet/Wound Care/Special Instructions: PATIENT EDUCATION MATERIAL Instructions following a heart rhythm device implant. 1. Keep dressing DRY for 5 DAYS. You may cover the area with Saran or Cling Wrap, prior to a shower. 2. The dressing will be removed in the Device Clinic at Cardiology [facility]. Absorbable sutures were used to close the wound. 3. Avoid raising the left arm above the shoulder level. 4 week restriction 4. Avoid arm movements, like backscratching, rubbing the head, or pulling on a cord. 4 weeks restriction 5. Gentle range of motion movements of the shoulder, closest to the incision should be performed to avoid a frozen shoulder. (Pendulum exercises of the shoulder) 6. The opposite arm may be used freely. 7. Avoid driving for 7 days. 8. Avoid activities such as golfing, swimming, weed whacking, lifting more than 10 pounds weight, bowling, gymnastics and weight training/lifting. (6 weeks restriction) 9. Activities such as wood chopping with an axe, pull-ups in the gymnasium, power lifting, arc-welding, being close to home induction cooktops will always be a problem. 10. Arm sling is a mere reminder not to raise the arm above the head. However you do not need to keep the arm completely immobilized. Your free to move the arm and use it and for normal activities. In case of any problems, please call Cardiology [facility], [place], @ [phone], Attention: Device Clinic Device clinic follow-up in 5 days Follow-up with primary silvering applicator in 2-3 months Discharge Disposition: TRANSFER TO SNF/ECF
[2018-03-20 14:23] VITALS: BP 188/88; PULSE 53; TEMP 97.1
== END 2018-03-20 15:48 | DRG 242 ==
LOC: EC 15:34 → 6SEL 19:16
PROVIDERS: ADMIT Internal Medicine; ATTEND Internal Medicine
PROC: 0JH606Z Insertion of Pacemaker, Dual Chamber into Chest Subcutaneous Tissue and Fascia, Open Approach (ICD-10-PCS; principal; 2018-03-14)
PROC: 02H63JZ Insertion of Pacemaker Lead into Right Atrium, Percutaneous Approach (ICD-10-PCS; 2018-03-14)
PROC: 02HK3JZ Insertion of Pacemaker Lead into Right Ventricle, Percutaneous Approach (ICD-10-PCS; 2018-03-14)
DX: I49.5 Sick sinus syndrome (principal); G93.41 Metabolic encephalopathy; N39.0 Urinary tract infection, site not specified; I10 Essential (primary) hypertension; E03.9 Hypothyroidism, unspecified; E78.5 Hyperlipidemia, unspecified; Z96.651 Presence of right artificial knee joint; F32.9 Major depressive disorder, single episode, unspecified; Z86.73 Personal history of transient ischemic attack (TIA), and cerebral infarction without residual deficits; Z82.49 Family history of ischemic heart disease and other diseases of the circulatory system; Z79.899 Other long term (current) drug therapy; Z80.1 Family history of malignant neoplasm of trachea, bronchus and lung; Z85.3 Personal history of malignant neoplasm of breast; Z87.891 Personal history of nicotine dependence; Z98.84 Bariatric surgery status; Z79.890 Hormone replacement therapy; Z80.8 Family history of malignant neoplasm of other organs or systems
CPT/HCPCS: 33208; 36415; 70450; 71046; 80053; 80061; 80306; 81001; 82550; 82553; 83735; 84443; 84484; 85025; 85610; 85730; 93005; 93306; 96374; 99285

== ENCOUNTER → 2018-08-11 | Outpatient (CLI) | payer MEDICARE ==
--- NOTE | 2018-08-11 09:12 | US ---
EXAMINATION TYPE: US carotid duplex BILAT DATE OF EXAM: 08/11/2018 COMPARISON: Prior carotid ultrasound June 18, 2014 CLINICAL HISTORY: G45.9 Transient cerebral ischemic attack, unspecif; speech affected EXAM MEASUREMENTS: RIGHT: Peak Systolic Velocity (PSV) cm/sec ----- Right CCA: 65.2 ----- Right ICA: 58.9 ----- Right ECA: 65.2 ICA/CCA ratio: 0.9 RIGHT: End Diastole cm/sec ----- Right CCA: 17.2 ----- Right ICA: 19.7 ----- Right ECA: 65.2 LEFT: Peak Systolic Velocity (PSV) cm/sec ----- Left CCA: 17.2 ----- Left ICA: 19.7 ----- Left ECA: 60.8 ICA/CCA ratio: 1.1 LEFT: End Diastole cm/sec ----- Left CCA: 15.4 ----- Left ICA: 59.9 ----- Left ECA: 60.8 VERTEBRALS (direction of flow): Right Vertebral: Antegrade Left Vertebral: Antegrade Rhythm: Normal Moderate eccentric hyperechoic plaque bilateral carotid bulbs is present. Velocity measurements and r atios in visualized portion of both internal carotid arteries remains within normal limits. IMPRESSION: Moderate atherosclerotic change bilaterally without hemodynamically significant stenosis seen in either internal carotid artery. Criteria for Assigning % of Stenosis / Diameter reduction (Estimation based on the indirect measurements of the internal carotid artery velocities (ICA PSV). 1. Normal (no stenosis)=ICA PSV < 125 cm/s: ratio < 2.0: ICA EDV<40 cm/s. 2. Less than 50% stenosis=ICA PSV < 125 cm/s: ratio < 2.0: ICA EDV<40 cm/s. 3. 50 to 69% stenosis=ICA PSV of 125 to 230 cm/s: ration 2.0 ? 4.0: ICA EDV 40-100 cm/s. 4. Greater than 70% stenosis to near occlusion= ICA PSV > 230 cm/s: ratio > 4.0: ICA EDV > 100 cm/s. 5. Near occlusion= ICA PSV velocities may be low or undetectable: variable ratio and ICA EDV. 6. Total occlusion=unable to detect flow.
== END | disposition home or self-care (01) ==
LOC: RADUSWWP 07:57
PROVIDERS: ATTEND Internal Medicine
DX: I65.23 Occlusion and stenosis of bilateral carotid arteries (principal)
CPT/HCPCS: 93880

== ENCOUNTER → 2018-11-13 | Outpatient (CLI) | payer MEDICARE ==
--- NOTE | 2018-11-13 17:21 | BD ---
EXAMINATION TYPE: Axial Bone Density DATE OF EXAM: 11/13/2018 COMPARISON: NONE CLINICAL HISTORY: 73-year-old female postmenopausal screening Height: 61.5 IN Weight: 190 LBS FRAX RISK QUESTIONS: Family History (Parent hip fracture): FATHER IN HIS 80'S Postmenopausal woman: AGE 51 MEDICATIONS: Thyroid Medications: YES Which medication: Levothyroxine How Lon + YEARS Additional Medications: LEVOTHYROXINE, SERTRALINE, LORAZEPAM, CRESTOR, AMLODIPINE, FERROUS SULFATE, V IT D3, BABY ASPIRIN, PRADAXA EXAM MEASUREMENTS: Bone mineral densitometry was performed using the [employer]. Bone mineral density as measured about the Lumbar spine is: ----- L1-L4(G/cm2): 1.057 T Score Values are as follows: ----- L2: -1.2 ----- L3: -0.2 ----- L4: -0.6 ----- L1-L4: -1.0 Bone mineral density BASELINE Bone mineral density about the R hip (g/cm2): 0.646 Bone mineral density about the L hip (g/cm2): 0.660 T Score values are as follows: -----R Neck: -2.8 -----L Neck: -2.7 -----R Total: -2.7 -----L Total: -2.3 Bone mineral density BASELINE IMPRESSION: Osteoporosis (T Score less than -2.5). There is increased fracture risk and therapy is usually indicated based on age. Re-Screen 1-2 years. NOTE: T-SCORE=SD OF THE YOUNG ADULT MEAN.
--- NOTE | 2018-11-14 10:27 | MM ---
Reason for exam: additional evaluation requested from prior study. Last mammogram was performed 3 years and 7 months ago. History: Patient is postmenopausal, has history of breast cancer at age 64, and is nulliparous. Lumpectomy of the left breast, 2008. Radiation therapy of the left breast, 2008. Physical Findings: Nurse did not find any significant physical abnormalities on exam. MG 3D Diag Mammo W/Cad CHERYL Bilateral CC and MLO view(s) were taken. Prior study comparison: April 17, 2015, mammogram, performed at [facility]. April 16, 2014, mammogram, performed at [facility]. The breast tissue is heterogeneously dense. This may lower the sensitivity of mammography. Benign appearing bilateral calcifications. Left cardian device. Post therapy change on the left with post radiation skin thickening and upper outer quadrant lumpectomy. These results were verbally communicated with the patient on 11/14/18. ASSESSMENT: Benign, BI-RAD 2 RECOMMENDATION: Follow-up diagnostic mammogram of both breasts in 1 year.
== END | disposition home or self-care (01) ==
LOC: RADMAMWWP 15:30
PROVIDERS: ATTEND Family Medicine
DX: C50.911 Malignant neoplasm of unspecified site of right female breast (principal); M81.0 Age-related osteoporosis without current pathological fracture
CPT/HCPCS: 77080; 77066; G0279; 77062

== ENCOUNTER → 2018-11-24 | Outpatient (CLI) | payer MEDICARE ==
--- NOTE | 2018-11-24 09:30 | CT ---
EXAMINATION TYPE: CT brain wo/w con DATE OF EXAM: 11/24/2018 COMPARISON: 03/14/2018 HISTORY: weakness/unsteady CT DLP: 2035.8 mGycm Automated exposure control for dose reduction was used. CONTRAST: CT scan of the head is performed with IV Contrast, patient injected with 100 mL of Isovue 300. FINDINGS: Intracranial atherosclerotic changes noted. Abnormal attenuation in the white matter is nonspecific b ut most typical remote microvascular ischemic white matter disease. More localized area of abnormal a ttenuation the right occipital lobe suggestive of previous infarct. There is persistent increased attenuation within the left frontal cortex. Could not exclude a degree of vague enhancement. Low-attenuation right thalamus compatible with infarct. Abnormal signal within the internal capsule a nd basal ganglia also suggestive of remote lacunar infarcts. IMPRESSION: Persistent area of increased density within the left frontal cortex near the frontoparietal junction. Suspected degree of vague enhancement. Differential diagnosis would include vascular malformation. C annot exclude previous hemorrhage or low-grade neoplasm. Recommend MRI with MRA. Finding is similar t o the prior exam.
== END ==
LOC: RADCTMAIN 06:51
PROVIDERS: ATTEND Internal Medicine Geriatric Medicine
DX: R93.0 Abnormal findings on diagnostic imaging of skull and head, not elsewhere classified (principal)
CPT/HCPCS: 70470; Q9967

== ENCOUNTER 2018-12-30 21:09 | Emergency (ER) | payer MEDICARE ==
--- NOTE | 2018-12-30 21:28 | CT ---
EXAMINATION TYPE: CT brain wo con DATE OF EXAM: 12/30/2018 COMPARISON: 11/24/2018 INDICATION: Aphasia, history of stroke. DLP: 2225.8 mGycm, Automated exposure control for dose reduction was used. CONTRAST: None CT of the brain is performed utilizing 3 mm thick sections through the posterior fossa and 3 mm thick sections through the remaining calvarium. Study is performed within 24 hours of arrival to the hosp ital. No abnormal hyperdensity is present to suggest an acute intracranial hemorrhage. No mass lesion is evident. No acute infarcts are evident. There is mild periventricular white matter hypodensity, likely on the basis of chronic white matter ischemic change most evident adjacent to the anterior horn left lateral ventricle. Findings appear stable. Ventricles and sulci are appropriate for the patient age. Paranasal sinuses and mastoid air cells within the [id number] are clear. IMPRESSIONS: 1. Mild periventricular white matter ischemic changes. Findings appear stable from the comparison.
[2018-12-30 21:29] VITALS: TEMP 99.2
[2018-12-30 21:46] LABS: Glucose,Whole Blood 127 mg/dL (75-99)
[2018-12-30] MEDS ORDERED: DILTIAZEM DRIP BOLUS FROM BAG 1 MG SOLN IV ONE (21:46)
--- NOTE | 2018-12-30 21:52 | ED ---
Neuro HPI - General Chief Complaint: Neuro Symptoms/Deficit Stated Complaint: Stroke Time Seen by Provider: 12/30/18 21:10 Source: patient, EMS Mode of arrival: EMS Limitations: no limitations - History of Present Illness Is the patient presenting with stroke symptoms?: No Last Known Well Date: 12/30/18 Last Known Well Time: 19:50 Initial Comments: [place] is a pleasant 73-year-old female presents the emergency department today via EMS for evaluation of strokelike symptoms. Patient does have a history of A. fib for which she is on Pradaxa and aspirin she also has a history of TIAs in the past with no residual deficit. Per EMS they were dispatched at 20:31 for patient was strokelike symptoms. Apparently the patient had been on the telephone with her roommate who is currently out of town, during that conversation the patient completely lost ability to speak and began having garbled speech. Her roommate became concerned that she may be having a stroke, she contacted their neighbors to go over and check on her and then contacted EMS. Upon EMS arrival patient was sitting up was awake and alert but had complete expressive aphasia, patient seemed to be able to follow commands but not speak and when she attempted to speak had garbled speech. EMS checked her blood glucose which was within normal limits and transported her to the hospital. In route to the hospital her speech has improved significantly. Upon arrival the patient has normal speech NIH score of 0. Location: speech Place: home Severity: severe Quality: improving On Anticoagulants: Yes (Pradaxa, ASA) Context: sudden onset Associated Symptoms: denies other symptoms Treatments Prior to Arrival: none - Related Data Home Medications: Home Medications Medication Instructions Recorded Confirmed RX: Levothyroxine Sodium 100 mcg PO DAILY 03/15/14 03/14/18 [Synthroid] RX: Cholecalciferol [Vitamin D3] 5,000 unit PO DAILY 03/14/18 03/14/18 RX: Ferrous Sulfate [Iron (65 MG 325 mg PO DAILY 03/14/18 03/14/18 Elemental)] RX: Rosuvastatin Calcium [Crestor] 5 mg PO DAILY 03/14/18 03/14/18 RX: Sertraline [Zoloft] 100 mg PO DAILY 03/14/18 03/14/18 Dabigatran [Pradaxa] 150 mg PO BID 12/30/18 12/30/18 Donepezil [Aricept] 10 mg PO HS 12/30/18 12/30/18 LORazepam [Ativan] 1 mg PO HS PRN 12/30/18 12/30/18 Metoprolol Tartrate [Lopressor] 25 mg PO BID 12/30/18 12/30/18 RX: Aspirin 81 mg PO HS 12/30/18 Previous Rx's Medication Instructions Recorded RX: amLODIPine [Norvasc] 10 mg PO DAILY #0 tab 03/19/18 Allergies/Adverse Reactions: Allergies Allergy/AdvReac Type Severity Reaction Status Date / Time morphine Allergy Unknown Verified 12/30/18 21:24 Review of Systems ROS Statement: Those systems with pertinent positive or pertinent negative responses have been documented in the HPI. ROS Other: All systems not noted in ROS Statement are negative. General Exam - General Exam Comments Initial Comments: GENERAL: Patient is well-developed and well-nourished. Patient is nontoxic and well- hydrated and is in no distress. HENT: Normocephalic, Atraumatic. Neck is soft and supple. No significant lymphadenopathy is noted. Oropharynx is clear. Moist mucous membranes. Neck has full range of motion without eliciting any pain. EYES: The sclera were anicteric and conjunctiva were pink and moist. Extraocular movements were intact and pupils were equal round and reactive to light. Eyelids were unremarkable. PULMONARY: Unlabored respirations. Good breath sounds bilaterally. No audible rales rhonchi or wheezing was noted. CARDIOVASCULAR: Tachycardic, irregularly irregular Warm and well perfused extremities ABDOMEN: Soft and nontender with normal bowel sounds. SKIN: Skin is clear with no lesions or rashes and otherwise unremarkable. NEUROLOGIC: Patient is alert and oriented x3. Cranial nerves II through XII are grossly intact. Motor and sensory are also intact. Normal speech, volume and content. Symmetrical smile. MUSCULOSKELETAL: Normal extremities with adequate strength and full range of motion. No lower extremity swelling or edema. No calf tenderness. LYMPHATICS: No significant lymphadenopathy is noted PSYCHIATRIC: Normal psychiatric evaluation. Limitations: no limitations Limitations: no limitations Stroke MDM - Lab Data Result diagrams: 12/30/18 21:44 12/30/18 21:44 Lab Results 12/30/18 12/30/18 12/30/18 Range/Units 21:43 21:44 21:44 WBC 7.0 (3.8-10.6) k/uL RBC 5.54 H (3.80-5.40) m/uL Hgb 16.2 H (11.4-16.0) gm/dL Hct 47.6 H (34.0-46.0) % MCV 85.9 (80.0-100.0) fL MCH 29.2 (25.0-35.0) pg MCHC 33.9 (31.0-37.0) g/dL RDW 15.7 H (11.5-15.5) % Plt Count 147 L (150-450) k/uL Neutrophils % 71 % Lymphocytes % 19 % Monocytes % 7 % Eosinophils % 2 % Basophils % 0 % Neutrophils # 5.0 (1.3-7.7) k/uL Lymphocytes # 1.3 (1.0-4.8) k/uL Monocytes # 0.5 (0-1.0) k/uL Eosinophils # 0.1 (0-0.7) k/uL Basophils # 0.0 (0-0.2) k/uL PT (9.0-12.0) sec INR (<1.2) APTT (22.0-30.0) sec Sodium 138 (137-145) mmol/L Potassium 3.6 (3.5-5.1) mmol/L Chloride 106 (98-107) mmol/L Carbon Dioxide 22 (22-30) mmol/L Anion Gap 10 mmol/L BUN 11 (7-17) mg/dL Creatinine 0.51 L (0.52-1.04) mg/dL Est GFR (CKD-EPI)AfAm >90 (>60 ml/min/1.73 sqM) Est GFR (CKD-EPI)NonAf >90 (>60 ml/min/1.73 sqM) Glucose 135 H (74-99) mg/dL POC Glucose (mg/dL) 127 H (75-99) mg/dL POC Glu Direct Selling Counselor ID Daniela Daily Calcium 9.5 (8.4-10.2) mg/dL Total Bilirubin 0.4 (0.2-1.3) mg/dL AST 44 H (14-36) U/L ALT 49 (9-52) U/L Alkaline Phosphatase 80 (38-126) U/L Troponin I (0.000-0.034) ng/mL Total Protein 6.3 (6.3-8.2) g/dL Albumin 4.0 (3.5-5.0) g/dL 12/30/18 12/30/18 Range/Units 21:44 21:44 WBC (3.8-10.6) k/uL RBC (3.80-5.40) m/uL Hgb (11.4-16.0) gm/dL Hct (34.0-46.0) % MCV (80.0-100.0) fL MCH (25.0-35.0) pg MCHC (31.0-37.0) g/dL RDW (11.5-15.5) % Plt Count (150-450) k/uL Neutrophils % % Lymphocytes % % Monocytes % % Eosinophils % % Basophils % % Neutrophils # (1.3-7.7) k/uL Lymphocytes # (1.0-4.8) k/uL Monocytes # (0-1.0) k/uL Eosinophils # (0-0.7) k/uL Basophils # (0-0.2) k/uL PT 10.5 (9.0-12.0) sec INR 1.0 (<1.2) APTT 25.4 (22.0-30.0) sec Sodium (137-145) mmol/L Potassium (3.5-5.1) mmol/L Chloride (98-107) mmol/L Carbon Dioxide (22-30) mmol/L Anion Gap mmol/L BUN (7-17) mg/dL Creatinine (0.52-1.04) mg/dL Est GFR (CKD-EPI)AfAm (>60 ml/min/1.73 sqM) Est GFR (CKD-EPI)NonAf (>60 ml/min/1.73 sqM) Glucose (74-99) mg/dL POC Glucose (mg/dL) (75-99) mg/dL POC Glu Direct Selling Counselor ID Calcium (8.4-10.2) mg/dL Total Bilirubin (0.2-1.3) mg/dL AST (14-36) U/L ALT (9-52) U/L Alkaline Phosphatase (38-126) U/L Troponin I <0.012 (0.000-0.034) ng/mL Total Protein (6.3-8.2) g/dL Albumin (3.5-5.0) g/dL - NIH Stroke Scale 1a. Level of Consciousness: (0) alert 1b. LOC Questions: (0) answers correctly 1c. LOC Commands: (0) performs tasks correctly 2. Best Gaze: (0) normal 3. Visual: (0) no visual loss 4. Facial Palsy: (0) normal symmetrical movement 5a. Motor Arm Left: (0) no drift 5b. Motor Arm Right: (0) no drift 6a. Motor Leg Left: (0) no drift 6b. Motor Leg Right: (0) no drift 7. Limb Ataxia: (0) absent 8. Sensory: (0) normal 9. Best Language: (0) no aphasia 10. Dysarthria: (0) normal 11. Extinction/Inattention: (0) no abnormality - Thrombolytic Inclusion/Exclusion Thrombolytic Contraindications: Rapidly Improving s/s - Medical Decision Making The patient was seen and admitted immediately upon arrival to the emergency department, patient's answering rapid improvement in her symptoms Due to the severity of the aphasia and the potential for this being devastating if it evolves a code stroke was activated the patient was taken immediately to computed tomography scan Upon initial evaluation noted the patient appears to be in A. fib with RVR with a heart rate ranging from the 120s to 130s EKG was obtained at 2127, rate is 134, rhythm is narrow complex irregularly irregular consistent with atrial fibrillation with RVR. QRS is 74 QTC is 480 there are no acute ST elevations or depressions no evidence of acute ischemia or infarction Cardizem ordered for RVR CT head with no acute changes, chronic white matter changes consistent with previous exams Patient HR improving with cardizem This with the patient that she needs to be evaluated by neurology. Patient like to be transferred to the [facility] for further evaluation. Patient care was discussed with Dr. Lo who accepts the transfer. Past Medical History Past Medical History: Cancer, CVA/TIA, Hyperlipidemia, Hypertension, Memory Impairment, Osteoarthritis (OA), Thyroid Disorder Additional Past Medical History / Comment(s): rt side dominant. lt breast cancer dx 2006 had a lumpectomy, no chmo no radiation. overactive bladder(has had an implant for bladder control -since removed and botox inj-completed.back pain,past cva-no residual. hx benign colon polyos, bradycardia. past sleep apnea-since wt loss no longer a problem. 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 History of Any Multi-Drug Resistant Organisms: None Reported Past Surgical History: Bariatric Surgery, Bladder Surgery, Joint Replacement, Tonsillectomy Additional Past Surgical History / Comment(s): zay-en-y, rt total knee replacement 2005, colonoscopy,lt breast bx and lumpectomy, implant in buuotcks for the bladder-since removed and past botox inj in bladder. Past Anesthesia/Blood Transfusion Reactions: No Reported Reaction Past Psychological History: Anxiety, Depression Smoking Status: Former smoker Past Alcohol Use History: None Reported Past Drug Use History: None Reported - Past Family History Father Family Medical History: Coronary Artery Disease (CAD) Additional Family Medical History / Comment(s): heart problems Mother Family Medical History: Cancer Additional Family Medical History / Comment(s): lung cancer w/mets to brain Course Vital Signs 12/30/18 12/30/18 12/30/18 21:21 21:45 22:15 Temperature 99.2 F Pulse Rate 131 H 129 H 113 H Respiratory 16 12 22 Rate Blood Pressure 120/99 108/79 108/91 O2 Sat by Pulse 94 L 95 96 Oximetry 12/30/18 23:01 Temperature Pulse Rate 99 Respiratory 16 Rate Blood Pressure 122/94 O2 Sat by Pulse 96 Oximetry Critical Care Time Critical Care Time: Yes Total Critical Care Time: 15 Critical Care Time: Critical Care Critical care time was exclusive of separately billable procedures and treating other patients. Critical care was necessary to treat or prevent imminent or life-threatening deterioration. Critical care was time spent personally by me on the following activities: development of treatment plan with patient or surrogate, discussions with consultants, discussions with primary provider, evaluation of patient's response to treatment, examination of patient, obtaining history from patient or surrogate, ordering and performing treatments and interventions, ordering and review of laboratory studies, ordering and review of radiographic studies, pulse oximetry, re-evaluation of patient's condition and review of old charts. Disposition Clinical Impression: TIA (transient ischemic attack) Disposition: OTHER INSTITUTION NOT DEFINED Condition: Serious Referrals: Darling Newton MD [Primary Care Provider] - 1-2 days - Out of Hospital Transfer - Req. Specs Out of Hospital Transfer - Requested Specifics: Other Emergency Center ([facility])
[2018-12-30 21:55] LABS: Basophils % (A) 0 %; Eosinophils # (A) 0.1 k/uL (0-0.7); Eosinophils % (A) 2 %; HCT 47.6 % (34.0-46.0); HGB 16.2 gm/dL (11.4-16.0); Lymphocytes # (A) 1.3 k/uL (1.0-4.8); Lymphocytes % (A) 19 %; MCH 29.2 pg (25.0-35.0); MCHC 33.9 g/dL (31.0-37.0); MCV 85.9 fL (80.0-100.0); Mean Platelet Volume 11.1; Monocytes # (A) 0.5 k/uL (0-1.0); Monocytes % (A) 7 %; Neutrophils % (A) 71 %; Platelet Count 147 k/uL (150-450); RBC 5.54 m/uL (3.80-5.40); RDW 15.7 % (11.5-15.5)
[2018-12-30] MEDS ORDERED: DILTIAZEM 125 MG in SODIUM CHLORIDE 0.9% 100 ML IV SCH (22:00)
--- NOTE | 2018-12-30 22:05 | XR ---
EXAMINATION TYPE: XR chest 2V DATE OF EXAM: 12/30/2018 COMPARISON: 03/18/2018 INDICATION: History of breast cancer TECHNIQUE: Frontal and lateral views of the chest are obtained. FINDINGS: The heart size is moderately enlarged. Pacemaker overlies left chest.. The pulmonary vasculature is normal. The lungs are clear. IMPRESSION: 1. No acute pulmonary process. 2. Cardiomegaly
[2018-12-30 22:08] LABS: Partial Thromboplastin Time 25.4 sec (22.0-30.0); Prothrombin Time 10.5 sec (9.0-12.0)
[2018-12-30 22:10] LABS: ALT 49 U/L (9-52); AST 44 U/L (14-36); Alkaline Phosphatase 80 U/L (38-126); Anion Gap 10 mmol/L; Blood Urea Nitrogen 11 mg/dL (7-17); Calcium 9.5 mg/dL (8.4-10.2); Carbon Dioxide 22 mmol/L (22-30); Chloride 106 mmol/L (98-107); Glucose 135 mg/dL (74-99); Potassium 3.6 mmol/L (3.5-5.1); Sodium 138 mmol/L (137-145); Total Bilirubin 0.4 mg/dL (0.2-1.3); Total Protein 6.3 g/dL (6.3-8.2)
[2018-12-30] MEDS ORDERED: SODIUM CHLORIDE 0.9% 1,000 ML IV ONE (22:33)
[2018-12-30 23:02] VITALS: BP 122/94; PULSE 99; RESP 16
== END 2018-12-30 23:20 | disposition short-term general hospital (02) ==
LOC: EC 21:09
DX: G45.9 Transient cerebral ischemic attack, unspecified (principal); R29.700 NIHSS score 0; E78.5 Hyperlipidemia, unspecified; I10 Essential (primary) hypertension; E07.9 Disorder of thyroid, unspecified; F41.9 Anxiety disorder, unspecified; F32.9 Major depressive disorder, single episode, unspecified; M19.90 Unspecified osteoarthritis, unspecified site; I48.91 Unspecified atrial fibrillation; Z79.01 Long term (current) use of anticoagulants; Z79.82 Long term (current) use of aspirin; Z79.890 Hormone replacement therapy; Z79.899 Other long term (current) drug therapy; Z88.5 Allergy status to narcotic agent; Z87.891 Personal history of nicotine dependence; Z85.3 Personal history of malignant neoplasm of breast
CPT/HCPCS: 36415; 70450; 71046; 80053; 84484; 85025; 85610; 85730; 93005; 96365; 96376; 99285

== ENCOUNTER → 2020-10-23 | Day surgery (SDC) | payer MEDICARE ==
[2020-10-20 11:29] VITALS: BMI 24.7
[~2020-10-23] MED LIST: SODIUM CHLORIDE 0.9% 1,000 ML IV SCH; SODIUM CHLORIDE 0.9% 500 ML 500 ML IV ONE
[2020-10-23 09:26] LABS: Glucose,Whole Blood 91 mg/dL (75-99)
[2020-10-23 11:54] VITALS: RESP 16
[2020-10-23 11:55] VITALS: BP 153/81; PULSE 62
--- NOTE | 2020-10-23 18:59 | P.EPPROC ---
- EP Procedure Note Electrophysiology Procedure Note: Diagnosis Recurrent presyncope Twelve-lead EKG Atrial paced rhythm narrow QRS normal ST segments Tilt table test per protocol Baseline blood pressure 165/80 mmHg and 177/79 mmHg Patient was tilted upright at an angle of 70 per protocol. There was an immediate drop in blood pressure 241/95 mmHg Thereafter there was a very gradual decline in her blood pressure 234/78 mmHg She remained asymptomatic through the procedure When she was laid supine her blood pressure went back 261/75 mmHg Impression Atrial paced rhythm Elevated blood pressure readings in the supine position Drop in blood pressure by at least 20 mmHg, systolic with upright position and a gradual decline in blood pressure for a total of about 30-40 mmHg systolic with maintained upright position Mild dysautonomia/orthostatic hypotension syndrome
== END ==
LOC: CATHEP 09:02
PROVIDERS: ATTEND Internal Medicine Clinical Cardiac Electrophysiology
DX: G90.1 Familial dysautonomia [Riley-Day] (principal); I95.1 Orthostatic hypotension; R55 Syncope and collapse; I48.0 Paroxysmal atrial fibrillation; I49.5 Sick sinus syndrome; Z95.0 Presence of cardiac pacemaker; E11.9 Type 2 diabetes mellitus without complications; I10 Essential (primary) hypertension; I08.0 Rheumatic disorders of both mitral and aortic valves; E78.5 Hyperlipidemia, unspecified; Z82.49 Family history of ischemic heart disease and other diseases of the circulatory system; Z72.0 Tobacco use; Z88.5 Allergy status to narcotic agent; Z86.73 Personal history of transient ischemic attack (TIA), and cerebral infarction without residual deficits; Z79.890 Hormone replacement therapy; Z79.899 Other long term (current) drug therapy
CPT/HCPCS: 93660

== ENCOUNTER → 2021-02-04 | Outpatient (CLI) | payer MEDICARE ==
--- NOTE | 2021-02-05 09:26 | MM ---
Reason for exam: additional evaluation requested from prior study. Last mammogram was performed 2 years and 3 months ago. History: Patient is postmenopausal, has history of breast cancer at age 64, and is nulliparous. Lumpectomy of the left breast, 2008. Radiation therapy of the left breast, 2008. Physical Findings: Nurse did not find any significant physical abnormalities on exam. MG Diagnostic Mammo w CAD CHERYL Bilateral CC and MLO view(s) were taken. ML, spot compression MLO, and spot compression CC view(s) were taken of the left breast. Prior study comparison: November 13, 2018, bilateral MG 3d diag mammo w/cad CHERYL. April 17, 2015, mammogram, performed at [facility]. The breast tissue is heterogeneously dense. This may lower the sensitivity of mammography. Stable benign calcifications. There is chronic nodularity bilaterally. Stable distortion at the site of previous lumpectomy. Left sided skin thickening. No significant new findings when compared with previous films. These results were verbally communicated with the patient and result sheet given to the patient on 02/04/21. ASSESSMENT: Benign, BI-RAD 2 RECOMMENDATION: Follow-up diagnostic mammogram of both breasts in 1 year.
== END | disposition home or self-care (01) ==
LOC: RADMAMWWP 14:56
PROVIDERS: ATTEND Internal Medicine
DX: R92.2 Inconclusive mammogram (principal); R92.1 Mammographic calcification found on diagnostic imaging of breast
CPT/HCPCS: 77066

== ENCOUNTER 2021-04-09 12:43 | Emergency (ER) | payer MEDICARE ==
[2021-04-09 12:58] VITALS: RESP 18; TEMP 98.1
--- NOTE | 2021-04-09 13:06 | ED ---
General Adult HPI - General Chief complaint: Fall Stated complaint: AMS Time Seen by Provider: 04/09/21 12:50 Source: patient, EMS, RN notes reviewed, old records reviewed Mode of arrival: EMS Limitations: altered mental status - History of Present Illness Initial comments: This is a 76-year-old female who has a past medical history significant for seiz ures. Patient's caregiver said she was up and eating breakfast at the table and the caregiver went outside which came back she was lying on the floor face down and was groaning and moaning is slowly has come around to respond to her but was still confused. EMS was called and they brought her to the emergency department. Patient is currently alert and oriented 2 she does recognize her caregiver realizes she is in the hospital. Patient does not remember the event at all she does not even remember eating breakfast this morning. Patient's caregiver states her last seizure was probably a little more than a year ago. Caregiver states prior to this event today there was no history of fever chills is no history of difficulty breathing there was no complaints the patient is morning and the patient had no nausea vomiting diarrhea. Currently the patient denies any pain but she is not back to her baseline. - Related Data Home Medications Medication Instructions Recorded Confirmed Ferrous Sulfate [Iron (65 MG 325 mg PO DAILY 03/14/18 10/23/20 Elemental)] LORazepam [Ativan] 1 mg PO HS PRN 12/30/18 10/23/20 Metoprolol Tartrate [Lopressor] 25 mg PO BID-W/MEALS 12/30/18 10/23/20 Donepezil HCl [Aricept] 10 mg PO HS 10/20/20 10/23/20 Folic Acid 1 mg PO DAILY 10/20/20 10/23/20 Levothyroxine Sodium [Synthroid] 75 mcg PO DAILY 10/20/20 10/23/20 Vitamin D(Dose Unknown) 1 tab PO DAILY 10/20/20 10/23/20 lamoTRIgine [LaMICtal] 25 mg PO BID 10/20/20 10/23/20 lisinopriL [Zestril] 5 mg PO DAILY 10/20/20 10/23/20 metFORMIN HCL ER [Glucophage Xr] 500 mg PO PC-SUPPER 10/20/20 10/23/20 Previous Rx's Medication Instructions Recorded amLODIPine [Norvasc] 10 mg PO DAILY #0 tab 03/19/18 Allergies Allergy/AdvReac Type Severity Reaction Status Date / Time Iodine and Iodide Containing Allergy Rash/Hives Verified 10/23/20 09:22 Produc morphine Allergy Unknown Verified 10/23/20 09:22 dust,mold Allergy Unknown Uncoded 10/23/20 09:22 Review of Systems ROS Statement: Those systems with pertinent positive or pertinent negative responses have been documented in the HPI. ROS Other: All systems not noted in ROS Statement are negative. Past Medical History Past Medical History: Cancer, CVA/TIA, Hyperlipidemia, Hypertension, Memory Impairment, Osteoarthritis (OA), Thyroid Disorder Additional Past Medical History / Comment(s): rt side dominant. lt breast cancer dx 2006 had a lumpectomy, no chmo no radiation. overactive bladder(has had an implant for bladder control -since removed and botox inj-completed.back pain,past cva-no residual. hx benign colon polyos, bradycardia. past sleep apnea-since wt loss no longer a problem. 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 History of Any Multi-Drug Resistant Organisms: None Reported Past Surgical History: Bariatric Surgery, Bladder Surgery, Joint Replacement, Tonsillectomy Additional Past Surgical History / Comment(s): zay-en-y, rt total knee replacement 2005, colonoscopy,lt breast bx and lumpectomy, implant in buuotcks for the bladder-since removed and past botox inj in bladder. Past Anesthesia/Blood Transfusion Reactions: No Reported Reaction Past Psychological History: Anxiety, Depression Past Alcohol Use History: None Reported Past Drug Use History: None Reported - Past Family History Father Family Medical History: Coronary Artery Disease (CAD) Additional Family Medical History / Comment(s): heart problems Mother Family Medical History: Cancer Additional Family Medical History / Comment(s): lung cancer w/mets to brain General Exam - General Exam Comments Initial Comments: GENERAL: Patient is well-developed and well-nourished. Patient is nontoxic and well- hydrated and is in no acute distress. ENT: Neck is soft and supple. No significant lymphadenopathy is noted. Oropharynx is clear. Moist mucous membranes. Neck has full range of motion without eliciting any pain. EYES: The sclera were anicteric and conjunctiva were pink and moist. Extraocular movements were intact and pupils were equal round and reactive to light. Eyelids were unremarkable. PULMONARY: Unlabored respirations. Good breath sounds bilaterally. No audible rales rhonchi or wheezing was noted. CARDIOVASCULAR: There is a regular rate and rhythm without any murmurs gallops or rubs. ABDOMEN: Soft and nontender with normal bowel sounds. Patient has multiple old bruises on the legs and she at this time does not know what is wrong. SKIN: Skin is clear with no lesions or rashes and otherwise unremarkable. NEUROLOGIC: Patient is alert and oriented 2. Cranial nerves II through XII are grossly intact. Motor and sensory are also intact. Normal speech, volume and content. Symmetrical smile. MUSCULOSKELETAL: Normal extremities with adequate strength and full range of motion. No lower extremity swelling or edema. No calf tenderness. LYMPHATICS: No significant lymphadenopathy is noted PSYCHIATRIC: Normal psychiatric evaluation. Course Vital Signs 04/09/21 12:48 Temperature 98.1 F Pulse Rate 65 Respiratory 18 Rate Blood Pressure 166/88 O2 Sat by Pulse 92 L Oximetry Medical Decision Making - Medical Decision Making EKG shows a paced rhythm at 63 bpm WV interval is 204 QRS is 82 QT interval 418 QTC is 427. The patient's caregiver was here she stated the patient still is a little bit confused but 10:15 minutes after that the patient was back to her baseline consistent with a postictal state. CAT scan showed no acute abnormality. Chest x-ray showed no acute abnormality. Patient is requesting go home and caregiver wants to buy by her wishes so we are discharging the patient home with the assumption that this is a seizure. - Lab Data Result diagrams: 04/09/21 13:32 04/09/21 13:32 Lab Results 04/09/21 04/09/21 04/09/21 Range/Units 13:32 13:32 13:32 WBC 4.3 (3.8-10.6) k/uL RBC 4.49 (3.80-5.40) m/uL Hgb 14.5 (11.4-16.0) gm/dL Hct 43.0 (34.0-46.0) % MCV 95.7 (80.0-100.0) fL MCH 32.2 (25.0-35.0) pg MCHC 33.7 (31.0-37.0) g/dL RDW 13.6 (11.5-15.5) % Plt Count 120 L (150-450) k/uL MPV 8.2 Neutrophils % 77 % Lymphocytes % 15 % Monocytes % 5 % Eosinophils % 2 % Basophils % 0 % Neutrophils # 3.3 (1.3-7.7) k/uL Lymphocytes # 0.6 L (1.0-4.8) k/uL Monocytes # 0.2 (0-1.0) k/uL Eosinophils # 0.1 (0-0.7) k/uL Basophils # 0.0 (0-0.2) k/uL Sodium 143 (137-145) mmol/L Potassium 3.6 (3.5-5.1) mmol/L Chloride 107 (98-107) mmol/L Carbon Dioxide 27 (22-30) mmol/L Anion Gap 9 mmol/L BUN 16 (7-17) mg/dL Creatinine 0.85 (0.52-1.04) mg/dL Est GFR (CKD-EPI)AfAm 76 (>60 ml/min/1.73 sqM) Est GFR (CKD-EPI)NonAf 66 (>60 ml/min/1.73 sqM) Glucose 192 H (74-99) mg/dL Calcium 9.3 (8.4-10.2) mg/dL Total Bilirubin 0.2 (0.2-1.3) mg/dL AST 40 H (14-36) U/L ALT 25 (4-34) U/L Alkaline Phosphatase 69 (38-126) U/L Total Protein 5.9 L (6.3-8.2) g/dL Albumin 3.8 (3.5-5.0) g/dL Urine Color Yellow Urine Appearance Clear (Clear) Urine pH 6.5 (5.0-8.0) Ur Specific [place] 1.016 (1.001-1.035) Urine Protein Trace H (Negative) Urine Glucose (UA) Negative (Negative) Urine Ketones Negative (Negative) Urine Blood Negative (Negative) Urine Nitrite Negative (Negative) Urine Bilirubin Negative (Negative) Urine Urobilinogen <2.0 (<2.0) mg/dL Ur Leukocyte Esterase Negative (Negative) Disposition Clinical Impression: Seizure Disposition: HOME SELF-CARE Condition: Good Instructions (If sedation given, give patient instructions): Recurrent Seizures in Adults (ED) Is patient prescribed a controlled substance at d/c from ED?: No Referrals: Darling Newton MD [Primary Care Provider] - 1-2 days Time of Disposition: 17:10
[2021-04-09 13:52] LABS: Basophils % (A) 0 %; Eosinophils # (A) 0.1 k/uL (0-0.7); Eosinophils % (A) 2 %; HGB 14.5 gm/dL (11.4-16.0); Lymphocytes # (A) 0.6 k/uL (1.0-4.8); Lymphocytes % (A) 15 %; MCH 32.2 pg (25.0-35.0); MCHC 33.7 g/dL (31.0-37.0); MCV 95.7 fL (80.0-100.0); Mean Platelet Volume 8.2; Monocytes # (A) 0.2 k/uL (0-1.0); Monocytes % (A) 5 %; Neutrophils # (A) 3.3 k/uL (1.3-7.7); Neutrophils % (A) 77 %; Platelet Count 120 k/uL (150-450); RBC 4.49 m/uL (3.80-5.40); RDW 13.6 % (11.5-15.5); WBC 4.3 k/uL (3.8-10.6)
[2021-04-09 14:08] LABS: Albumin 3.8 g/dL (3.5-5.0); Calcium 9.3 mg/dL (8.4-10.2); Potassium 3.6 mmol/L (3.5-5.1); Total Bilirubin 0.2 mg/dL (0.2-1.3); Total Protein 5.9 g/dL (6.3-8.2)
--- NOTE | 2021-04-09 14:17 | CT ---
EXAMINATION TYPE: CT brain andrew wo con DATE OF EXAM: 04/09/2021 COMPARISON: 12/30/2018 HISTORY: poor historian, trauma CT DLP: 1329.7 mGycm, Automated exposure control for dose reduction was used. CONTRAST: Patient injected with mL of . CT of the brain is performed utilizing 3 mm thick sections through the posterior fossa and 3 mm thick sections through the remaining calvarium. Study is performed within 24 hours of arrival to the hospital. No abnormal hyperdensity is present to suggest an acute intracranial hemorrhage. No mass lesion is evident. No acute infarcts are evident. There is mild periventricular white matter hypodensities, likely on t he basis of chronic white matter ischemic changes. Tiny lacunar infarct in the right thalamus may be present, present previously. Ventricles and sulci are prominent for the patient age. Paranasal sinuses and mastoid air cells within the [id number] are clear. IMPRESSIONS: 1. Atrophy with mild chronic appearing periventricular white matter ischemic changes. 2. Old right thalamic lacunar infarct. CT cervical spine. COMPARISON: None CT of the cervical spine is performed in the axial plane at 2 mm thick sections. Reconstructed image s in the coronal, and sagittal plane are reviewed on the computer. No acute fractures are evident. Vertebral body alignment is normal. Loss of disc height C5-6 C6-7. Partial fusion of C6-7 may be present. Prevertebral space is normal. Vertebral body heights are preserved. No spinal canal stenosis is evident. C5-6 uncovertebral joint hypertrophy is present contributing to foraminal narrowing. Facet degenerati ve changes present at C7-T1 on the right. IMPRESSIONS: 1. No acute osseous abnormality cervical spine. 2. Degenerative disc changes C5-6 C6-7.
[2021-04-09 16:09] LABS: Appearance,Urine Clear (Clear); Bilirubin,Urine Negative (Negative); Blood,Urine Negative (Negative); Color,Urine Yellow; Glucose,Urine (UA) Negative (Negative); Ketones,Urine Negative (Negative); Leukocyte Esterase,Urine Negative (Negative); Nitrite,Urine Negative (Negative); PH, Urine 6.5 (5.0-8.0); Protein,Urine Trace (Negative); Specific Gravity,Urine 1.016 (1.001-1.035); Urobilinogen,Urine <2.0 mg/dL (<2.0)
[2021-04-09 17:24] VITALS: BP 155/84; PULSE 90
== END 2021-04-09 17:32 | disposition home or self-care (01) ==
LOC: EC 12:43
DX: R56.9 Unspecified convulsions (principal); R41.82 Altered mental status, unspecified; I10 Essential (primary) hypertension; E78.5 Hyperlipidemia, unspecified; M19.90 Unspecified osteoarthritis, unspecified site; F32.9 Major depressive disorder, single episode, unspecified; F41.9 Anxiety disorder, unspecified; Z86.73 Personal history of transient ischemic attack (TIA), and cerebral infarction without residual deficits; Z79.84 Long term (current) use of oral hypoglycemic drugs
CPT/HCPCS: 36415; 70450; 72125; 80053; 80175; 81003; 85025; 93005; 99285

== ENCOUNTER → 2021-07-30 | Outpatient (CLI) | payer MEDICARE ==
--- NOTE | 2021-07-30 15:34 | XR ---
EXAMINATION TYPE: XR shoulder complete RT, 3 views DATE OF EXAM: 07/30/2021 Comparison: None Clinical History: 76-year-old female pain after falling, S89.8X1 shoulder bone disorder Findings: Mild marginal spurring at the AC joint. Subacromial space is observed. Bony irregularity at the great er tuberosity. Osteopenia. No acute fracture, subluxation, dislocation. Partially visualized right at rial and right ventricular pacer leads. Impression: Prominent bony irregularity at the greater tuberosity suggests chronic rotator cuff tendinopathy. The re is osteopenia. Mild AC joint OA. No acute osseous abnormality seen.
== END ==
LOC: RADXRMAIN 13:46
PROVIDERS: ATTEND Internal Medicine
DX: S49.91XA Unspecified injury of right shoulder and upper arm, initial encounter (principal); M19.011 Primary osteoarthritis, right shoulder

== ENCOUNTER 2021-08-06 10:50 | Observation (INO) | payer MEDICARE ==
[2021-08-06] MEDS ORDERED: SODIUM CHLORIDE 0.9% 500 ML 500 ML IV STA (11:22)
--- NOTE | 2021-08-06 11:36 | ED ---
General Adult HPI - General Chief complaint: Neuro Symptoms/Deficit Stated complaint: TIA Time Seen by Provider: 08/06/21 10:53 Source: EMS Mode of arrival: EMS Limitations: no limitations - History of Present Illness Initial comments: Dictation was produced using [employer] dictation software. please excuse any grammatical, word or spelling errors. Chief Complaint: 76-year-old female with past medical history of CVA/TIA presents to emergency Department with concerns of transient ischemic attack. History of Present Illness: Patient is a 76-year-old female she has multiple comorbidities. She states that earlier today she had an episode of left facial weakness, left facial twitching and dysarthria. She notices herself. No one al so notices. She states it lasted for several minutes and resolved on its own. She has no complaints at this time. Patient denies any associated extremity weakness. She said she felt dysarthric. She was in her house by herself when this occurred. She states she lives with a roommate however no one noticed it. The ROS documented in this emergency department record has been reviewed and confirmed by me. Those systems with pertinent positive or negative responses have been documented in the HPI. All other systems are other negative and/or noncontributory. PHYSICAL EXAM: General Impression: Alert and oriented x3, not in acute distress HEENT: Normocephalic atraumatic, extra-ocular movements intact, pupils equal and reactive to light bilaterally, mucous membranes moist. Cardiovascular: Heart regular rate and rhythm Chest: Able to complete full sentences, no retractions, no tachypnea Abdomen: abdomen soft, non-tender, non-distended, no organomegaly Musculoskeletal: Pulses present and equal in all extremities, no peripheral edema Motor: no focal deficits noted Neurological: CN II-XII grossly intact, no focal motor or sensory deficits noted, NIH is 0 Skin: Intact with no visualized rashes Psych: Normal affect and mood ED course:76-year-old female with reported transient ischemic attack. She states that she noticed symptoms of left facial weakness and dysarthria all signs upon arrival are within acceptable limits. Laboratory evaluation obtained. CBC, coag panel, metabolic panel is unremarkable. Cardiac enzymes negative. Chest x-ray shows no acute processes. Computed tomography scan of the brain is negative. Patient reevaluated at bedside found to be stable medical condition. She has no complaints and has normal neurologic exam. He shows that patient has not been admitted to our hospital for TIA evaluation. Patient evaluated at 2:16 PM at the bedside. She is still NIH 0. Disposition options were discussed. Patient is agreeable with admission with neurology consultation and neurologic monitoring. Patient given an aspirin. She will be admitted to Dr. Newton. EKG interpretation: Ventricular rate 65, normal sinus rhythm, LA interval 204, QRS 82, QTc 4:30. No LA prolongation, no QTC prolongation, no ST or T-wave changes noted. EKG interpretation: Ventricular rate [default value]. No LA prolongation, no QTC prolongation, no ST or T-wave changes noted. Overall, this EKG is unremarkable. Overall, this EKG is unremarkable - Related Data Home Medications Medication Instructions Recorded Confirmed Ferrous Sulfate [Iron (65 MG 325 mg PO DAILY 03/14/18 08/06/21 Elemental)] Donepezil HCl [Aricept] 10 mg PO HS 10/20/20 08/06/21 Folic Acid 1 mg PO DAILY 10/20/20 08/06/21 Levothyroxine Sodium [Synthroid] 75 mcg PO DAILY 10/20/20 08/06/21 lisinopriL [Zestril] 5 mg PO DAILY 10/20/20 08/06/21 metFORMIN HCL ER [Glucophage Xr] 500 mg PO PC-SUPPER 10/20/20 08/06/21 Aspirin EC [Ecotrin Low Dose] 81 mg PO DAILY 08/06/21 08/06/21 Cholecalciferol [Vitamin D3 (25 50 mcg PO DAILY 08/06/21 08/06/21 Mcg = 1000 Iu)] Cyanocobalamin (Vitamin B-12) 1,000 mcg PO DAILY 08/06/21 08/06/21 [Vitamin B-12] Dabigatran Etexilate Mesylate 150 mg PO BID 08/06/21 08/06/21 [Pradaxa] Esomeprazole Magnesium [NexIUM] 40 mg PO DAILY 08/06/21 08/06/21 Multivitamin W/ No Iron 1 tab PO DAILY 08/06/21 08/06/21 Potassium Gluconate [Potassium 99 mg PO DAILY 08/06/21 08/06/21 Gluconate ER] Rosuvastatin [Crestor] 20 mg PO DAILY 08/06/21 08/06/21 Sertraline [Zoloft] 100 mg PO DAILY 08/06/21 08/06/21 lamoTRIgine [LaMICtal] 150 mg PO BID 08/06/21 08/06/21 Allergies Allergy/AdvReac Type Severity Reaction Status Date / Time Iodine and Iodide Containing Allergy Rash/Hives Verified 08/06/21 12:41 Produc morphine Allergy Unknown Verified 08/06/21 12:41 dust,mold Allergy Unknown Uncoded 08/06/21 12:41 Review of Systems ROS Statement: Those systems with pertinent positive or pertinent negative responses have been documented in the HPI. ROS Other: All systems not noted in ROS Statement are negative. Past Medical History Past Medical History: Cancer, CVA/TIA, Hyperlipidemia, Hypertension, Memory Impairment, Osteoarthritis (OA), Thyroid Disorder Additional Past Medical History / Comment(s): rt side dominant. lt breast cancer dx 2005 had a lumpectomy, no chmo no radiation. overactive bladder(has had an implant for bladder control -since removed and botox inj-completed.back pain,past cva-no residual. hx benign colon polyos, bradycardia. past sleep apnea-since wt loss no longer a problem. 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 History of Any Multi-Drug Resistant Organisms: None Reported Past Surgical History: Bariatric Surgery, Bladder Surgery, Joint Replacement, Tonsillectomy Additional Past Surgical History / Comment(s): zay-en-y, rt total knee replacement 2005, colonoscopy,lt breast bx and lumpectomy, implant in buuotcks for the bladder-since removed and past botox inj in bladder. Past Anesthesia/Blood Transfusion Reactions: No Reported Reaction Past Psychological History: Anxiety, Depression Smoking Status: Never smoker Past Alcohol Use History: None Reported Past Drug Use History: None Reported - Past Family History Father Family Medical History: Coronary Artery Disease (CAD) Additional Family Medical History / Comment(s): heart problems Mother Family Medical History: Cancer Additional Family Medical History / Comment(s): lung cancer w/mets to brain General Exam Limitations: no limitations Course Vital Signs 08/06/21 10:52 Pulse Rate 60 Respiratory 18 Rate Blood Pressure 172/82 O2 Sat by Pulse 94 L Oximetry Medical Decision Making - Lab Data Result diagrams: 08/06/21 11:40 08/06/21 11:40 Lab Results 08/06/21 08/06/21 08/06/21 Range/Units 11:40 11:40 11:40 WBC 3.7 L (3.8-10.6) k/uL RBC 4.31 (3.80-5.40) m/uL Hgb 14.1 (11.4-16.0) gm/dL Hct 41.7 (34.0-46.0) % MCV 96.6 (80.0-100.0) fL MCH 32.8 (25.0-35.0) pg MCHC 33.9 (31.0-37.0) g/dL RDW 12.8 (11.5-15.5) % Plt Count 132 L (150-450) k/uL MPV 8.3 Neutrophils % 66 % Lymphocytes % 22 % Monocytes % 6 % Eosinophils % 3 % Basophils % 0 % Neutrophils # 2.5 (1.3-7.7) k/uL Lymphocytes # 0.8 L (1.0-4.8) k/uL Monocytes # 0.2 (0-1.0) k/uL Eosinophils # 0.1 (0-0.7) k/uL Basophils # 0.0 (0-0.2) k/uL PT 10.1 (9.0-12.0) sec INR 0.9 (<1.2) APTT 23.9 (22.0-30.0) sec Sodium 139 (137-145) mmol/L Potassium 4.0 (3.5-5.1) mmol/L Chloride 109 H (98-107) mmol/L Carbon Dioxide 25 (22-30) mmol/L Anion Gap 5 mmol/L BUN 21 H (7-17) mg/dL Creatinine 0.73 (0.52-1.04) mg/dL Est GFR (CKD-EPI)AfAm >90 (>60 ml/min/1.73 sqM) Est GFR (CKD-EPI)NonAf 79 (>60 ml/min/1.73 sqM) Glucose 95 (74-99) mg/dL Calcium 8.7 (8.4-10.2) mg/dL Total Bilirubin 0.4 (0.2-1.3) mg/dL AST 34 (14-36) U/L ALT 20 (4-34) U/L Alkaline Phosphatase 68 (38-126) U/L Troponin I (0.000-0.034) ng/mL Total Protein 5.6 L (6.3-8.2) g/dL Albumin 3.5 (3.5-5.0) g/dL 08/06/21 Range/Units 11:40 WBC (3.8-10.6) k/uL RBC (3.80-5.40) m/uL Hgb (11.4-16.0) gm/dL Hct (34.0-46.0) % MCV (80.0-100.0) fL MCH (25.0-35.0) pg MCHC (31.0-37.0) g/dL RDW (11.5-15.5) % Plt Count (150-450) k/uL MPV Neutrophils % % Lymphocytes % % Monocytes % % Eosinophils % % Basophils % % Neutrophils # (1.3-7.7) k/uL Lymphocytes # (1.0-4.8) k/uL Monocytes # (0-1.0) k/uL Eosinophils # (0-0.7) k/uL Basophils # (0-0.2) k/uL PT (9.0-12.0) sec INR (<1.2) APTT (22.0-30.0) sec Sodium (137-145) mmol/L Potassium (3.5-5.1) mmol/L Chloride (98-107) mmol/L Carbon Dioxide (22-30) mmol/L Anion Gap mmol/L BUN (7-17) mg/dL Creatinine (0.52-1.04) mg/dL Est GFR (CKD-EPI)AfAm (>60 ml/min/1.73 sqM) Est GFR (CKD-EPI)NonAf (>60 ml/min/1.73 sqM) Glucose (74-99) mg/dL Calcium (8.4-10.2) mg/dL Total Bilirubin (0.2-1.3) mg/dL AST (14-36) U/L ALT (4-34) U/L Alkaline Phosphatase (38-126) U/L Troponin I <0.012 (0.000-0.034) ng/mL Total Protein (6.3-8.2) g/dL Albumin (3.5-5.0) g/dL Disposition Clinical Impression: TIA (transient ischemic attack) Disposition: ADMITTED IP TO THIS HOSP Condition: Fair Referrals: Darling Newton MD [Primary Care Provider] - 1-2 days
[2021-08-06 12:38] LABS: ALT 20 U/L (4-34); AST 34 U/L (14-36); African American GFR (CKD) >90 (>60 ml/min/1.73 sqM); Albumin 3.5 g/dL (3.5-5.0); Alkaline Phosphatase 68 U/L (38-126); Anion Gap 5 mmol/L; Blood Urea Nitrogen 21 mg/dL (7-17); Calcium 8.7 mg/dL (8.4-10.2); Carbon Dioxide 25 mmol/L (22-30); Chloride 109 mmol/L (98-107); Glucose 95 mg/dL (74-99); Non-African American GFR(CKD) 79 (>60 ml/min/1.73 sqM); Sodium 139 mmol/L (137-145); Total Bilirubin 0.4 mg/dL (0.2-1.3); Total Protein 5.6 g/dL (6.3-8.2)
--- NOTE | 2021-08-06 12:39 | XR ---
EXAMINATION TYPE: XR chest 2V DATE OF EXAM: 08/06/2021 COMPARISON: 12/30/2018 INDICATION: Weakness, seizure TECHNIQUE: Frontal and lateral views of the chest are obtained. FINDINGS: The heart size is normal. The pulmonary vasculature is normal. The lungs are clear. This may overlies left chest. IMPRESSION: 1. No acute pulmonary process.
[2021-08-06 12:50] LABS: INR 0.9 (<1.2); Partial Thromboplastin Time 23.9 sec (22.0-30.0); Prothrombin Time 10.1 sec (9.0-12.0)
--- NOTE | 2021-08-06 12:58 | CT ---
EXAMINATION TYPE: CT brain wo con for TPA DATE OF EXAM: 08/06/2021 HISTORY: ams, weakness CT DLP: 1143.4 mGycm. Automated Exposure Control for Dose Reduction was Utilized. TECHNIQUE: CT scan of the head is performed without contrast. COMPARISON: CT brain April 09, 2021. FINDINGS: There is no new acute intracranial hemorrhage or midline shift identified. Persistent cur vilinear hyperdensity high posterior left frontal lobe axial image 46 is unchanged back to 2018 CTs. This is the site of prior round hyperdense treated lesion from 2014 CT. There is mild to moderate dif fuse ventricular and sulcal prominence consistent with diffuse age-related cerebral atrophy. There i s moderate low-attenuation in the periventricular white matter consistent with chronic small vessel i schemic change. Old fracture deformity medial wall left orbit redemonstrated axial image 17. Visual ized paranasal sinuses remain clear. IMPRESSION: No acute intracranial hemorrhage or midline shift. There is mild to moderate diffuse ag e-related cerebral atrophy and chronic small vessel ischemic change along with high left frontal lobe postsurgical or treatment change redemonstrated. No significant change from most recent CT.
[2021-08-06 13:05] LABS: Basophils % (A) 0 %; Eosinophils # (A) 0.1 k/uL (0-0.7); Eosinophils % (A) 3 %; HCT 41.7 % (34.0-46.0); HGB 14.1 gm/dL (11.4-16.0); Lymphocytes # (A) 0.8 k/uL (1.0-4.8); Lymphocytes % (A) 22 %; MCH 32.8 pg (25.0-35.0); MCHC 33.9 g/dL (31.0-37.0); MCV 96.6 fL (80.0-100.0); Mean Platelet Volume 8.3; Monocytes # (A) 0.2 k/uL (0-1.0); Monocytes % (A) 6 %; Neutrophils # (A) 2.5 k/uL (1.3-7.7); Neutrophils % (A) 66 %; Platelet Count 132 k/uL (150-450); RBC 4.31 m/uL (3.80-5.40); RDW 12.8 % (11.5-15.5); WBC 3.7 k/uL (3.8-10.6)
[2021-08-06] MEDS ORDERED: ASPIRIN 81 MG PO STA (14:02)
[2021-08-06] MEDS ORDERED: NALOXONE 0.4 MG/ML 1 ML VIAL IV PRN (14:17)
[2021-08-06] MEDS: SODIUM CHLORIDE 0.9% 1,000 ML IV SCH (15:38)
[2021-08-06] MEDS ORDERED: LACOSAMIDE IV 100 MG in SODIUM CHLORIDE 0.9% 50 ML IVPB STA (17:35)
[2021-08-06] MEDS ORDERED: FAMOTIDINE 20 MG/2 ML VIAL IV STA (17:41)
[2021-08-06] MEDS ORDERED: methylPREDNISolone SOD SUCCI 125 MG/2 ML VIAL IV ONE (17:41)
[2021-08-06] MEDS ORDERED: diphenhydrAMINE 50 MG/ML 1 ML VIAL IVP STA (17:41)
--- NOTE | 2021-08-06 17:58 | P.CNNES ---
History of Present Illness Consult date: 08/06/21 Requesting physician: Prosper Shabazz Reason for Consult: tia History of Present Illness: This is a 76-year-old woman with medical history of seizure, stroke/TIA with no residual weakness, meningioma (left frontal), reported memory impairment, atrial fibrillation on Pradaxa, pacemaker, hypertension, hyperlipidemia, hypothyroidism who presented to the emergency department on 08/06/2021 facial twitching and difficulty speaking. According to the patient she stated that in the morning today she is doing good and then the then she noticed that the she start having her face twisting from side to side and it was violent jerks over the face and she cannot talk as a result and this episode lasted for 34 minutes. She denied any bowel or urinary incontinence. She denies any tongue bite. She believes this is the first time that this happened. She said that she has history of seizures and the she said a couple month ago she was found down on the floor. She denies any aura before this episode today. She denies of any aura before his seizures. Patient does not seem that to be a great historian at. Per the patient's nurse and she stated that the she complains her friend that she had numbness face associated with this. Patient is on Lamictal 150 mg 1 tablet twice a day for her seizures. She is compliant with her medication. Patient feels she is back to baseline. She denies of any visual disturbance, focal weakness, and he woke with numbness or difficulty getting words out. She said that she had history of stroke in the past but could not tell me her symptoms. Of note patient follows up with her neurologist Dr. Moctezuma as an outpatient. Patient stated that she was on Keppra in the past that she believes but does not remember what happened. Her other medication was Lamictal and she denies any side effects with it. She denies being on any other antiepileptic drugs. Patient used to follow-up at [facility] for her meningioma and stated that she has not followed up in a while. She denies of any family history of seizures. Some of the patient on medication consist of Pradaxa 150 mg 1 tablet twice a day, aspirin 81 mg daily, Aricept 10 mg daily at bedtime, Crestor 20 mg daily, Lamictal 150 mg 1 tablet twice a day, vitamin B12 at thousand micrograms daily, multivitamin, vitamin D3, folic acid 1 mg daily. Some other workup in the hospital consisted of: Initial vital signs is a blood pressure of 172/82, heart rate of 60, respiratory of 18, and the pulse ox of 94% room air. There is no temperature that's recorded there. Initial white blood cell is 3.7 thousand. Sodium is 139, creatinine is 0.73, glucose is 95, calcium is 8.7, AST of 34 and ALT of 20. Give the head is reported as no acute intracranial hemorrhage or midline shift. There is mild to moderate diffuse age-related cerebral atrophy and chronic small vessel ischemic change along with the high left frontal lobe postsurgical or treatment changes redemonstrated. No significant change from most recent CT in the body it's 04/09/2021. 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 See any evidence of MRI or MRA in our system from past. Review of Systems Review of system: The 12 point system was reviewed and apparent positive and ne gative per HPI. Past Medical History Past Medical History: Cancer, CVA/TIA, Hyperlipidemia, Hypertension, Memory Impairment, Osteoarthritis (OA), Thyroid Disorder Additional Past Medical History / Comment(s): rt side dominant. lt breast cancer dx 2005 had a lumpectomy, no chmo no radiation. overactive bladder(has had an implant for bladder control -since removed and botox inj-completed.back pain,past cva-no residual. hx benign colon polyos, bradycardia. past sleep apnea-since wt loss no longer a problem. 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 History of Any Multi-Drug Resistant Organisms: None Reported Past Surgical History: Bariatric Surgery, Bladder Surgery, Joint Replacement, Tonsillectomy Additional Past Surgical History / Comment(s): zay-en-y, rt total knee replacement 2005, colonoscopy,lt breast bx and lumpectomy, implant in buuotcks for the bladder-since removed and past botox inj in bladder. Past Anesthesia/Blood Transfusion Reactions: No Reported Reaction Past Psychological History: Anxiety, Depression Smoking Status: Never smoker Past Alcohol Use History: None Reported Past Drug Use History: None Reported - Past Family History Father Family Medical History: Coronary Artery Disease (CAD) Additional Family Medical History / Comment(s): heart problems Mother Family Medical History: Cancer Additional Family Medical History / Comment(s): lung cancer w/mets to brain Medications and Allergies Home Medications Medication Instructions Recorded Confirmed Type Ferrous Sulfate [Iron (65 MG 325 mg PO DAILY 03/14/18 08/06/21 History Elemental)] Donepezil HCl [Aricept] 10 mg PO HS 10/20/20 08/06/21 History Folic Acid 1 mg PO DAILY 10/20/20 08/06/21 History Levothyroxine Sodium [Synthroid] 75 mcg PO DAILY 10/20/20 08/06/21 History lisinopriL [Zestril] 5 mg PO DAILY 10/20/20 08/06/21 History metFORMIN HCL ER [Glucophage Xr] 500 mg PO PC-SUPPER 10/20/20 08/06/21 History Aspirin EC [Ecotrin Low Dose] 81 mg PO DAILY 08/06/21 08/06/21 History Cholecalciferol [Vitamin D3 (25 50 mcg PO DAILY 08/06/21 08/06/21 History Mcg = 1000 Iu)] Cyanocobalamin (Vitamin B-12) 1,000 mcg PO DAILY 08/06/21 08/06/21 History [Vitamin B-12] Dabigatran Etexilate Mesylate 150 mg PO BID 08/06/21 08/06/21 History [Pradaxa] Esomeprazole Magnesium [NexIUM] 40 mg PO DAILY 08/06/21 08/06/21 History Multivitamin W/ No Iron 1 tab PO DAILY 08/06/21 08/06/21 History Potassium Gluconate [Potassium 99 mg PO DAILY 08/06/21 08/06/21 History Gluconate ER] Rosuvastatin [Crestor] 20 mg PO DAILY 08/06/21 08/06/21 History Sertraline [Zoloft] 100 mg PO DAILY 08/06/21 08/06/21 History lamoTRIgine [LaMICtal] 150 mg PO BID 08/06/21 08/06/21 History Allergies Allergy/AdvReac Type Severity Reaction Status Date / Time Iodine and Iodide Containing Allergy Rash/Hives Verified 08/06/21 12:41 Produc morphine Allergy Unknown Verified 08/06/21 12:41 dust,mold Allergy Unknown Uncoded 08/06/21 12:41 Physical Examination - Vital Signs Vital Signs: Vital Signs Pulse Resp BP Pulse Ox 08/06/21 10:52 60 18 172/82 94 L Intake and Output 08/06/21 08/06/21 08/06/21 06:59 14:59 22:59 Other: Weight 68.039 kg GENERAL: The patient is lying in bed and is not in acute distress. CHEST: The heart rate is regular rate rhythm. No murmurs to auscultation. No carotid bruit bilaterally. LUNG: Clear to auscultation bilaterally no wheezing noted throughout. Not labored breathing. ABDOMEN/GI: Bowel sounds present in all 4 quadrants. No tenderness to palpation throughout. NEUROLOGICAL: Higher mental function: The patient is awake, alert, oriented to self, place and time. Patient is following commands. No aphasia and no neglect. Cranial nerves: The pupils are round, equal and reactive to light and accommodation. Visual tony are full to confrontation throughout. Extraocular movement is intact no nystagmus is noted. Facial sensation is normal to touch throughout. The facial strength is normal throughout. Hearing is moderately decreased bilaterally to hand rub. Tongue is midline and moved [id number]-dryy without any difficulty. No dysarthria is noted. Shoulder shrug is normal bilaterally. Motor: Gait is deferred. The strength is 5 over 5 throughout. Normal tone and bulk. Cerebellum: Normal finger to nose bilaterally. Sensation: Sensation is normal to touch throughout. Reflexes (right/left):1+ throughout. Plantars are downgoing bilaterally. Results - Laboratory Findings CBC and BMP: 08/06/21 11:40 08/06/21 11:40 Abnormal Lab Findings: Abnormal Labs 08/06/21 08/06/21 11:40 11:40 WBC 3.7 L Plt Count 132 L Lymphocytes # 0.8 L Chloride 109 H BUN 21 H Total Protein 5.6 L Assessment and Plan Assessment: Episode of facial twitching from side to side that was uncontrollable as well as difficulty getting her words out is due to likely break-through seizure. Does not seem like stroke or TIA Left frontal mass since 2013 (patient stated she has Meningioma) and followed-up at [facility] Neurosurgeon years back but has not followed-up any longer. (In our facility per out radiology reports they felt was a mass versus vascular malformation) History of seizure Underlying dementia/cognitive impairement History of atrial fibrillation on Pradaxa Pacemaker Hypertension Hyperlipidemia History of hypothyroidism Plan: I ordered a routine EEG as inpatient. Will consider writing a script for ambulatory 2 1/2 EEG as outpatient as well. Patient is on home dose of Lamictal 150 mg 1 tab twice a day. I started the patient on Vimpat 50mg 1 tab bid with loading dose of Vimpat 100mg once. Cannot Get MRI of the brain since the patient has a pacemaker. I ordered CT angiography of the head and neck (has iodine allergy so gave her the prep prior to this). Placed the patient on seizure precaution and seizure pads. The ED the patient was given aspirin 324 mg once Every 4 hours neuro checks We'll defer the rest of medical management to the primary team. Upon discharge the patient needs to follow-up with her neurologist (Dr. Moctezuma) within 1-2 weeks and recommend for her to follow-up with her neurosurgeon at [facility]. The plan is discussed with the patient and her nurse. Thank You for the consultation. Humberto Cruz M.D. Neuro-hospitalist Time with Patient: Greater than 30
[2021-08-06] MEDS: lamoTRIgine 25 MG TAB PO SCH (20:53)
[2021-08-06] MEDS: LACOSAMIDE 50 MG TABLET PO SCH (20:53)
[2021-08-06] MEDS: lamoTRIgine 100 MG TAB PO SCH (20:53)
[2021-08-06] MEDS ORDERED: ATORVASTATIN 40 MG TAB PO SCH (21:00)
--- NOTE | 2021-08-06 22:24 | CT ---
EXAMINATION TYPE: CT angio head neck DATE OF EXAM: 08/06/2021 COMPARISON: None HISTORY: Seizure CT DLP: 282.9 mGycm Automated exposure control for dose reduction was used. CONTRAST: Performed with IV Contrast, patient injected with 65 mL of Isovue 370. Images obtained from the aortic arch to the vertex of the brain with IV contrast. There are 3-D post processed images. There is normal branching of the great vessels on the aortic arch. There is arterial flow in the subc lavian arteries bilaterally. There is arterial flow in the common internal and external carotid arter ies bilaterally. There is patency of the carotid artery bifurcations. There is some mild plaque forma tion at the origins of the internal carotid arteries with less than 15% stenosis. There is arterial f low in both vertebral arteries. There is no evidence of carotid or vertebral artery aneurysm or disse ction. There is arterial flow in the vertebrobasilar artery system. Left vertebral artery is larger t crystal the right. There is arterial flow in the anterior middle and posterior cerebral arteries. There is no mass effec t. There is no evidence of intracranial aneurysm or neovascularity. I see no evidence of intracranial arterial stenosis. There is normal enhancement of the venous sinuses. The left posterior cerebral ar dena appears to fill almost entirely through the left posterior communicating artery IMPRESSION: Negative CT angiogram of the head and neck. No evidence of hemodynamic stenosis. No evidence of aneur ysm.
[2021-08-07] MEDS ORDERED: NON FORMULARY DRUG (Potassium Gluconate [Potassium Gluconate Er] 99 MG Tablet) PO SCH (09:00)
[2021-08-07] MEDS ORDERED: NON FORMULARY DRUG (Aspirin Ec 81 MG Tablet) PO SCH (09:00)
[2021-08-07] MEDS ORDERED: LAMOTRIGINE 150 MG PO SCH (09:00)
[2021-08-07] MEDS: FERROUS SULFATE 325 MG TAB PO SCH (09:25)
[2021-08-07] MEDS: PANTOPRAZOLE 40 MG TABLET PO SCH (09:26)
[2021-08-07] MEDS: lamoTRIgine 100 MG TAB PO SCH ×2 (09:26→22:25)
[2021-08-07] MEDS: MULTIVITAMINS, THERA 1 EACH TAB PO SCH (09:26)
[2021-08-07] MEDS: CYANOCOBALAMIN 500 MCG TAB PO SCH (09:26)
[2021-08-07] MEDS: FOLIC ACID 1 MG TAB PO SCH (09:27)
[2021-08-07] MEDS: LACOSAMIDE 50 MG TABLET PO SCH ×2 (09:27→22:25)
[2021-08-07] MEDS: ASPIRIN 81 MG PO SCH (09:27)
[2021-08-07] MEDS: CHOLECALCIFEROL 25 MCG (1000 IU) TABLET PO SCH (09:27)
[2021-08-07] MEDS: lamoTRIgine 25 MG TAB PO SCH ×2 (09:28→22:25)
[2021-08-07] MEDS: LEVOTHYROXINE 75 MCG TAB PO SCH (09:44)
[2021-08-07] MEDS: lisinopriL 5 MG TAB PO SCH (09:45)
[2021-08-07] MEDS: DABIGATRAN 150 MG CAP PO SCH ×2 (09:45→22:25)
[2021-08-07] MEDS: SERTRALINE 100 MG TAB PO SCH (09:45)
[2021-08-07] MEDS: ATORVASTATIN 40 MG TAB PO SCH (09:49)
--- NOTE | 2021-08-07 11:44 | EEG ---
ELECTROENCEPHALOGRAM REPORT DATE OF SERVICE: 08/07/2021. CLINICAL HISTORY: This is a 76-year-old woman with an episode of twitching of the face. The video EEG is obtained to evaluate for seizure epileptiform activity. RELEVANT MEDICATION: The patient is on Lamictal and Vimpat. EEG TYPE: A routine 21-channel EEG is performed with video using the 10/20 electrode placement system. DESCRIPTION: Awake state is only obtained. During wakefulness, the background consists of low to moderate voltage that is well modulated and well sustained 8.5 to 9 hertz activity. There is no physiological sleep architecture seen. There is no focal slowing was seen. Interictal and ictal is none. ACTIVATION PROCEDURE: Photic stimulation did not evoke a posterior driving response. There is no abnormality during the photic stimulation. Hyperventilation is not performed. CLINICAL INTERPRETATION: This is a normal routine EEG. There are no focal slowing, epileptiform discharges or seizure on the EEG. Clinical correlation is recommended. ARA / VENESSA: [id number] / TAVIA
--- NOTE | 2021-08-07 12:16 | P.PN ---
Subjective Progress Note Date: 08/07/21 The patient is seen at bedside and stated no further episodes of twiching of her face or difficulty as result getting words out. She feels back to baseline. Patient states that she does not drive and her girlfriend is the one that drives her around. Objective - Vital Signs Vital signs: Vital Signs Temp 98.0 F 08/07/21 07:00 Pulse 55 L 08/07/21 08:00 Resp 16 08/07/21 08:00 BP 139/79 08/07/21 07:00 Pulse Ox 95 08/07/21 07:00 Intake & Output 08/06/21 08/07/21 08/07/21 18:59 06:59 18:59 Intake Total 118 Balance 118 Weight 68.039 kg Intake: Oral 118 Other: Voiding Method Toilet Toilet # Voids 1 - Exam GENERAL: The patient is lying in bed and is not in acute distress. NEUROLOGICAL: Higher mental function: The patient is awake, alert, oriented to self, place and time. Patient is following commands. No aphasia and no neglect. Cranial nerves: The pupils are round, equal and reactive to light and accommodation. Visual tony are full to confrontation throughout. Extraocular movement is intact no nystagmus is noted. Facial sensation is normal to touch throughout. The facial strength is normal throughout. Hearing is moderately decreased bilaterally to hand rub. Tongue is midline and moved [id number] without any difficulty. No dysarthria is noted. Shoulder shrug is normal bilaterally. Motor: Gait is deferred. The strength is 5 over 5 throughout. Normal tone and bulk. Cerebellum: Normal finger to nose bilaterally. Sensation: Sensation is normal to touch throughout. Reflexes (right/left):1+ throughout. Plantars are downgoing bilaterally. WORK-UP: CT the head is reported as no acute intracranial hemorrhage or midline shift. There is mild to moderate diffuse age-related cerebral atrophy and chronic small vessel ischemic change along with the high left frontal lobe postsurgical or treatment changes redemonstrated. No significant change from most recent CT in the body it's 04/09/2021. 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 See any evidence of MRI or MRA in our system from past. CT angiography of the head and neck was reported as no hemodynamic evidence of stenosis. No evidence of aneurysm. I could not personally reviewed the CT angiography since it states access denied. - Labs CBC & Chem 7: 08/06/21 11:40 08/06/21 11:40 Labs: Abnormal Lab Results - Last 24 Hours (Table) 08/06/21 08/06/21 Range/Units 11:40 11:40 WBC 3.7 L (3.8-10.6) k/uL Plt Count 132 L (150-450) k/uL Lymphocytes # 0.8 L (1.0-4.8) k/uL Chloride 109 H (98-107) mmol/L BUN 21 H (7-17) mg/dL Total Protein 5.6 L (6.3-8.2) g/dL Assessment and Plan Assessment: Episode of facial twitching from side to side that was uncontrollable as well as difficulty getting her words out is due to likely break-through seizure. Does not seem like stroke or TIA Left frontal mass since 2013 (patient stated she has Meningioma) and followed-up at [facility] Neurosurgeon years back but has not followed-up any longer. (In our facility per out radiology reports they felt was a mass versus vascular malformation) History of seizure Underlying dementia/cognitive impairement History of atrial fibrillation on Pradaxa Pacemaker Hypertension Hyperlipidemia History of hypothyroidism Plan: Preliminary routine EEG: Normal. Ordered a script for ambulatory 2 1/2 EEG as outpatient as well and will be handled by bindery technician. Patient is on home dose of Lamictal 150 mg 1 tab twice a day. Continue Vimpat 50mg 1 tab bid (new meds as inpatient). Cannot Get MRI of the brain since the patient has a pacemaker. Continue seizure precaution and seizure pads. The ED the patient was given aspirin 324 mg once Every 4 hours neuro checks We'll defer the rest of medical management to the primary team. Upon discharge the patient needs to follow-up with her neurologist (Dr. Moctezuma) within 1-2 weeks and recommend for her to follow-up with her neurosurgeon at [facility]. The plan is discussed with the patient and her nurse. The patient is clear from neurological perspective. Humberto Cruz M.D. Neuro-hospitalist
--- NOTE | 2021-08-07 17:27 | P.HPIM ---
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 Moctezuma recently was changed to Lamictal 150 mg orally twice every day, patient was in her usual state of health about yesterday in the morning when she came down from sleep in the morning and suddenly developed to have a significant twitching in her face on the right than the left side of the same time she could not see any word patient did not lose consciousness but she lowered herself to the ground her caregiver called 911, and the patient was brought into the emergency department at [facility] for further evaluation, patient did have a computed tomography scan of the brain that did not show evidence of acute of normalities her laboratory evaluation were reviewed and were normal, but because of the presentation he was elected for the patient to be seen in consultation by neurology and because the patient had a permanent pacemaker she could not go for an MRI of the brain however she is scheduled to go for a CT angiography of the neck as well as the brain to rule out any acute abnormalities. Patient was seen early in consultation by neurology she was started yesterday on Vimpat 50 minute gram orally twice every day and she is scheduled to have an EEG done. REVIEW OF SYSTEMS: Constitutional: No documented fever, no chills, no night sweats. No weight change. No weakness, fatigue or lethargy. No daytime sleepiness. HEENT: No headache. No blurred vision or double vision, no loss of vision. No loss of Hearing, no ringing in the ears, no dizziness. No nasal drainage or congestion. No epistaxis. No sore throat. Lungs: No shortness of breath, no cough, no sputum production. No wheezing. Reports dyspnea with activity. Cardiovascular: No chest pain, no lower extremity edema. No palpitations. No paroxysmal nocturnal dyspnea. No orthopnea. No lightheadedness or dizziness. No syncopal episodes. Abdominal: Reports abdominal pain. No nausea, vomiting. No diarrhea. No constipation. No bloody or tarry stools reports loss of appetite. Genitourinary: No dysuria, increased frequency, urgency. No urinary retention. Musculoskeletal: No myalgias. No muscle weakness, no gait dysfunction, no frequent falls. No back pain. No neck pain. Integumentary: No wounds, no lesions. No rash or pruritus. No unusual bruising. No change in hair or nails. Neurologic: Transient aphasia. No facial droop. No change in mentation. No head injury. No headache. No paralysis. No paresthesia, facial twitches Psychiatric: Positive for depression. No anxiety. No mood swings. Endocrine: No abnormal blood sugars. No weight change. PAST MEDICAL HISTORY: Hypertension and hypertensive cardiovascular disease Hyperlipidemia Diabetes mellitus type 2. History of CVA/TIA. History of hemorrhagic CVA. History of meningioma Seizure. Paroxysmal atrial fibrillation. Depressive disorder. Vascular dementia. PAST SURGICAL HISTORY: Chuy-en-Y surgery Permanent pacemaker in 2018 Left breast lumpectomy Minx closure SOCIAL HISTORY: Patient used to smoke about a pack every day she smoked for many years and quit more than 20 years ago, she is to be alcoholic drinker however she stopped many years ago, she denies any drug use or abuse per FAMILY HISTORY: Father at age of 92 from congestive heart failure, mother at age of 88 from brain cancer, patient has one brother who from stroke. PHYSICAL EXAMINATION: General: This is a 76-year-old female laying down in bed in no apparent distress. HEENT: Head is atraumatic, normocephalic, pupils were equal round reactive to light and recommendation, extraocular muscle movement were intact, sclera nonicteric, conjunctivae were pale, mucous membranes of the mouth are somewhat dry. Neck: Supple, no JVP, normal carotid upstroke bilaterally, no lymphadenopathy. Chest: Decreased breath sounds at the bases, few rhonchi, no extremity wheezes, no chest wall tenderness, no intercostal retractions. Heart: First heart sound is normal, second heart sounds normal, there is systolic ejection murmur 2/6 located in the left sternal border. Abdomen: Soft, nontender, nondistended, positive bowel sounds, there is no hepatosplenomegaly. Extremities: There is no edema no calf tenderness DP +2 bilaterally. Neurologic examination: Patient is awake alert and oriented X3, cranial nerves II-12 appear grossly intact, muscle power were 5 out of 5 in upper extremities and 5 out of 5 in bilateral lower extremities, deep tendon reflexes normal bilaterally. ASSESSMENT AND PLAN: 1. Likely break through seizure. EEG still pending at the time of dictation, patient was seen in consultation by neurology it was recommended to start the patient on Vimpat 50 mg orally twice every day along with her Lamictal 150 mg twice every day, patient will be kept in the hospital for another 24 hours, hopefully she will be discharged home in the next 24 hours if there is no breakthrough seizure. He shouldn't is scheduled to go for a CT angiography of the brain and the carotid arteries to rule out any aneurysm as the patient is not able to have an MRI due to her pacemaker. 2. Hypertension and hypertensive cardiovascular disease. Continue metoprolol 25 mg orally twice every day, lisinopril 5 mg orally once every day, amlodipine 10 mg orally once every day, monitor blood pressure very closely. 3. Paroxysmal atrial fibrillation. Resume the patient Pradaxa 150 mg orally twice every day continue baby aspirin 81 mg orally once every day. Discontinue full dose aspirin. 4. Hyperlipidemia. Continue Crestor 20 mg orally once every day. 5. Vascular dementia. Continue donepezil 10 mg orally once every day. 6. Diabetes mellitus type 2. Hold metformin since the patient is getting CT angiography with contrast, this will be for 48 hours after the exposure, continue patient on sliding scale insulin and Farxiga 5 mg orally once every day . 7. Depressive disorder. Continue . donepezil 10 mg orally once every day. 8. GERD. Continue as omeprazole 40 mg once every day. 9. DVT prophylaxis. Continue Pradaxa 150 mg orally twice every day. 10. GI prophylaxis. Continue PPI. 11. Admit to inpatient, estimated length of stay 2 midnights. 12. Full code. Past Medical History Past Medical History: Cancer, CVA/TIA, Hyperlipidemia, Hypertension, Memory Impairment, Osteoarthritis (OA), Thyroid Disorder Additional Past Medical History / Comment(s): rt side dominant. lt breast cancer dx 2005 had a lumpectomy, no chmo no radiation. overactive bladder(has had an implant for bladder control -since removed and botox inj-completed.back pain,past cva-no residual. hx benign colon polyos, bradycardia. past sleep apnea-since wt loss no longer a problem. 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 History of Any Multi-Drug Resistant Organisms: None Reported Past Surgical History: Bariatric Surgery, Bladder Surgery, Joint Replacement, Tonsillectomy Additional Past Surgical History / Comment(s): chuy-en-y, rt total knee replacement 2005, colonoscopy,lt breast bx and lumpectomy, implant in buuotcks for the bladder-since removed and past botox inj in bladder. Past Anesthesia/Blood Transfusion Reactions: No Reported Reaction Past Psychological History: Anxiety, Depression Smoking Status: Never smoker Past Alcohol Use History: None Reported Past Drug Use History: None Reported - Past Family History Father Family Medical History: Coronary Artery Disease (CAD) Additional Family Medical History / Comment(s): heart problems Mother Family Medical History: Cancer Additional Family Medical History / Comment(s): lung cancer w/mets to brain Medications and Allergies Home Medications Medication Instructions Recorded Confirmed Type Ferrous Sulfate [Iron (65 MG 325 mg PO DAILY 03/14/18 08/06/21 History Elemental)] Donepezil HCl [Aricept] 10 mg PO HS 10/20/20 08/06/21 History Folic Acid 1 mg PO DAILY 10/20/20 08/06/21 History Levothyroxine Sodium [Synthroid] 75 mcg PO DAILY 10/20/20 08/06/21 History lisinopriL [Zestril] 5 mg PO DAILY 10/20/20 08/06/21 History metFORMIN HCL ER [Glucophage Xr] 500 mg PO PC-SUPPER 10/20/20 08/06/21 History Aspirin EC [Ecotrin Low Dose] 81 mg PO DAILY 08/06/21 08/06/21 History Cholecalciferol [Vitamin D3 (25 50 mcg PO DAILY 08/06/21 08/06/21 History Mcg = 1000 Iu)] Cyanocobalamin (Vitamin B-12) 1,000 mcg PO DAILY 08/06/21 08/06/21 History [Vitamin B-12] Dabigatran Etexilate Mesylate 150 mg PO BID 08/06/21 08/06/21 History [Pradaxa] Esomeprazole Magnesium [NexIUM] 40 mg PO DAILY 08/06/21 08/06/21 History Multivitamin W/ No Iron 1 tab PO DAILY 08/06/21 08/06/21 History Potassium Gluconate [Potassium 99 mg PO DAILY 08/06/21 08/06/21 History Gluconate ER] Rosuvastatin [Crestor] 20 mg PO DAILY 08/06/21 08/06/21 History Sertraline [Zoloft] 100 mg PO DAILY 08/06/21 08/06/21 History lamoTRIgine [LaMICtal] 150 mg PO BID 08/06/21 08/06/21 History Allergies Allergy/AdvReac Type Severity Reaction Status Date / Time Iodine and Iodide Containing Allergy Rash/Hives Verified 08/06/21 12:41 Produc morphine Allergy Unknown Verified 08/06/21 12:41 dust,mold Allergy Unknown Uncoded 08/06/21 12:41 Physical Exam Vitals: Vital Signs Temp Pulse Pulse Resp BP BP Pulse Ox 08/07/21 01:51 98.0 F 52 L 16 134/76 97 08/06/21 18:15 97.9 F 62 16 175/86 95 08/06/21 10:52 60 18 172/82 94 L Intake and Output 08/06/21 08/07/21 08/07/21 22:59 06:59 14:59 Other: Voiding Method Toilet Toilet # Voids 1 1 Weight 68.039 kg Results CBC & Chem 7: 08/06/21 11:40 08/06/21 11:40 Labs: Abnormal Lab Results - Last 24 Hours (Table) 08/06/21 08/06/21 Range/Units 11:40 11:40 WBC 3.7 L (3.8-10.6) k/uL Plt Count 132 L (150-450) k/uL Lymphocytes # 0.8 L (1.0-4.8) k/uL Chloride 109 H (98-107) mmol/L BUN 21 H (7-17) mg/dL Total Protein 5.6 L (6.3-8.2) g/dL Thrombosis Risk Factor Assmnt - Choose All That Apply Each Risk Factor Represents 3 Points: Age 75 years or older Thrombosis Risk Factor Assessment Total Risk Factor Score: 3 Thrombosis Risk Factor Assessment Level: Moderate Risk
[2021-08-07] MEDS ORDERED: DONEPEZIL 10 MG TAB PO SCH (21:00)
[2021-08-07] MEDS: SODIUM CHLORIDE 0.9% 1,000 ML IV SCH (22:14)
[2021-08-08] MEDS: LEVOTHYROXINE 75 MCG TAB PO SCH (05:36)
[2021-08-08 08:29] VITALS: BP 159/80; PULSE 59; RESP 20; TEMP 97.6
[2021-08-08] MEDS: LACOSAMIDE 50 MG TABLET PO SCH (08:44)
[2021-08-08] MEDS: PANTOPRAZOLE 40 MG TABLET PO SCH (08:44)
[2021-08-08] MEDS: MULTIVITAMINS, THERA 1 EACH TAB PO SCH (08:44)
[2021-08-08] MEDS: CYANOCOBALAMIN 500 MCG TAB PO SCH (08:45)
[2021-08-08] MEDS: DABIGATRAN 150 MG CAP PO SCH (08:45)
[2021-08-08] MEDS: lamoTRIgine 25 MG TAB PO SCH (08:45)
[2021-08-08] MEDS: ATORVASTATIN 40 MG TAB PO SCH (08:45)
[2021-08-08] MEDS: lamoTRIgine 100 MG TAB PO SCH (08:46)
[2021-08-08] MEDS: SERTRALINE 100 MG TAB PO SCH (08:46)
[2021-08-08] MEDS: CHOLECALCIFEROL 25 MCG (1000 IU) TABLET PO SCH (08:46)
[2021-08-08] MEDS: ASPIRIN 81 MG PO SCH (08:46)
[2021-08-08] MEDS: lisinopriL 5 MG TAB PO SCH (08:46)
[2021-08-08] MEDS: FERROUS SULFATE 325 MG TAB PO SCH (08:47)
[2021-08-08] MEDS: FOLIC ACID 1 MG TAB PO SCH (08:47)
--- NOTE | 2021-08-08 09:49 | P.DS ---
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 Moctezuma recently was changed to Lamictal 150 mg orally twice every day, patient was in her usual state of health about yesterday in the morning when she came down from sleep in the morning and suddenly developed to have a significant twitching in her face on the right than the left side of the same time she could not see any word patient did not lose consciousness but she lowered herself to the ground her caregiver called 911, and the patient was brought into the emergency department at [facility] for further evaluation, patient did have a computed tomography scan of the brain that did not show evidence of acute of normalities her laboratory evaluation were reviewed and were normal, but because of the presentation he was elected for the patient to be seen in consultation by neurology and because the patient had a permanent pacemaker she could not go for an MRI of the brain however she is scheduled to go for a CT angiography of the neck as well as the brain to rule out any acute abnormalities. Patient was seen early in consultation by neurology she was started yesterday on Vimpat 50 minute gram orally twice every day and she is scheduled to have an EEG done. Discharge diagnoses: 1. Likely break through seizure. 2. Hypertension and hypertensive cardiovascular disease. 3. Paroxysmal atrial fibrillation. 4. Hyperlipidemia. 5. Vascular dementia. 6. Diabetes mellitus type 2. 7. Depressive disorder. 8. GERD Patient Condition at Discharge: Fair Plan - Discharge Summary Discharge Rx Participant: No New Discharge Prescriptions: No Action Ferrous Sulfate [Iron (65 MG Elemental)] 325 mg PO DAILY Donepezil HCl [Aricept] 10 mg PO HS Folic Acid 1 mg PO DAILY Levothyroxine Sodium [Synthroid] 75 mcg PO DAILY lisinopriL [Zestril] 5 mg PO DAILY metFORMIN HCL ER [Glucophage Xr] 500 mg PO PC-SUPPER Cholecalciferol [Vitamin D3 (25 Mcg = 1000 Iu)] 50 mcg PO DAILY lamoTRIgine [LaMICtal] 150 mg PO BID Rosuvastatin [Crestor] 20 mg PO DAILY Esomeprazole Magnesium [NexIUM] 40 mg PO DAILY Dabigatran Etexilate Mesylate [Pradaxa] 150 mg PO BID Potassium Gluconate [Potassium Gluconate ER] 99 mg PO DAILY Multivitamin W/ No Iron 1 tab PO DAILY Cyanocobalamin (Vitamin B-12) [Vitamin B-12] 1,000 mcg PO DAILY Aspirin EC [Ecotrin Low Dose] 81 mg PO DAILY Sertraline [Zoloft] 100 mg PO DAILY Discharge Medication List Ferrous Sulfate [Iron (65 MG Elemental)] 325 mg PO DAILY 03/14/18 [History] Donepezil HCl [Aricept] 10 mg PO HS 10/20/20 [History] Folic Acid 1 mg PO DAILY 10/20/20 [History] Levothyroxine Sodium [Synthroid] 75 mcg PO DAILY 10/20/20 [History] lisinopriL [Zestril] 5 mg PO DAILY 10/20/20 [History] metFORMIN HCL ER [Glucophage Xr] 500 mg PO PC-SUPPER 10/20/20 [History] Aspirin EC [Ecotrin Low Dose] 81 mg PO DAILY 08/06/21 [History] Cholecalciferol [Vitamin D3 (25 Mcg = 1000 Iu)] 50 mcg PO DAILY 08/06/21 [History] Cyanocobalamin (Vitamin B-12) [Vitamin B-12] 1,000 mcg PO DAILY 08/06/21 [History] Dabigatran Etexilate Mesylate [Pradaxa] 150 mg PO BID 08/06/21 [History] Esomeprazole Magnesium [NexIUM] 40 mg PO DAILY 08/06/21 [History] Multivitamin W/ No Iron 1 tab PO DAILY 08/06/21 [History] Potassium Gluconate [Potassium Gluconate ER] 99 mg PO DAILY 08/06/21 [History] Rosuvastatin [Crestor] 20 mg PO DAILY 08/06/21 [History] Sertraline [Zoloft] 100 mg PO DAILY 08/06/21 [History] lamoTRIgine [LaMICtal] 150 mg PO BID 08/06/21 [History] Follow up Appointment(s)/Referral(s): Darling Newton MD [Primary Care Provider] - 1-2 days Arnoldo Moctezuma DO [STAFF PHYSICIAN] - 1 Week (Keep previous appoinmtment for Sep.02 @1:00pm) Patient Instructions/Handouts: Recurrent Seizures in Adults (DC) Activity/Diet/Wound Care/Special Instructions: Followup with your Neurosurgeon at [facility]
== END 2021-08-08 10:45 | disposition home or self-care (01) ==
LOC: EC 10:50 → 6NMEDSUR 14:17
PROVIDERS: ADMIT Internal Medicine; ATTEND Internal Medicine
DX: R29.818 Other symptoms and signs involving the nervous system (principal); R29.810 Facial weakness; R47.1 Dysarthria and anarthria; I11.9 Hypertensive heart disease without heart failure; I48.0 Paroxysmal atrial fibrillation; E78.5 Hyperlipidemia, unspecified; F01.50 Vascular dementia, unspecified severity, without behavioral disturbance, psychotic disturbance, mood disturbance, and anxiety; R25.3 Fasciculation; G40.909 Epilepsy, unspecified, not intractable, without status epilepticus; K21.9 Gastro-esophageal reflux disease without esophagitis; E11.9 Type 2 diabetes mellitus without complications; F32.9 Major depressive disorder, single episode, unspecified; D32.9 Benign neoplasm of meninges, unspecified; M19.90 Unspecified osteoarthritis, unspecified site; E03.9 Hypothyroidism, unspecified; F10.21 Alcohol dependence, in remission; J30.89 Other allergic rhinitis; F41.9 Anxiety disorder, unspecified; Z79.890 Hormone replacement therapy; Z79.899 Other long term (current) drug therapy; Z79.82 Long term (current) use of aspirin; Z79.84 Long term (current) use of oral hypoglycemic drugs; Z79.01 Long term (current) use of anticoagulants; Z88.5 Allergy status to narcotic agent; Z91.041 Radiographic dye allergy status; Z98.84 Bariatric surgery status; Z96.651 Presence of right artificial knee joint; Z87.891 Personal history of nicotine dependence; Z95.0 Presence of cardiac pacemaker; Z87.448 Personal history of other diseases of urinary system; Z86.73 Personal history of transient ischemic attack (TIA), and cerebral infarction without residual deficits; Z85.3 Personal history of malignant neoplasm of breast; Z86.010 Personal history of colon polyps; Z82.3 Family history of stroke; Z80.1 Family history of malignant neoplasm of trachea, bronchus and lung; Z82.49 Family history of ischemic heart disease and other diseases of the circulatory system
CPT/HCPCS: 99285; 96361 ×2; 96374; 96375; 36415; 95816; 93005; 80053; 84484; 85025; 85610; 85730; 71046; 70496; 70450; 70498; G0378 ×3; J1200; Q9967

== ENCOUNTER → 2021-08-18 | Outpatient (CLI) | payer MEDICARE | LOC: NEUROMAIN 08:07 | PROVIDERS: ATTEND Student in an Organized Health Care Education/Training Program | DX: R25.3 Fasciculation (principal); Z91.041 Radiographic dye allergy status; Z88.5 Allergy status to narcotic agent; Z91.048 Other nonmedicinal substance allergy status; Z87.891 Personal history of nicotine dependence | CPT/HCPCS: 95713 ==

== ENCOUNTER 2021-08-29 08:37 | Emergency (ER) | payer MEDICARE ==
[2021-08-29 09:27] VITALS: TEMP 98.7
--- NOTE | 2021-08-29 10:30 | XR ---
EXAMINATION TYPE: XR lumbosacral spine min 4V DATE OF EXAM: 08/29/2021 CLINICAL HISTORY: back pain TECHNIQUE: Frontal, lateral, and oblique images of the lumbar spine are obtained. COMPARISON: none FINDINGS: There are 5 lumbar type vertebral bodies identified. The lumbar spine shows satisfactory alignment without evidence of acute fracture or dislocation. moderate DDD L1-2 and L2-3. Mild OA of facets. NO spondylolysis or lithesis. IMPRESSION: No acute fracture or dislocation is seen in the lumbar spine.
--- NOTE | 2021-08-29 10:33 | XR ---
Sacrum History: pain Comparison: none Findings: no fx or focal abnormality. Impression: No significant abnorm seen
[2021-08-29] MEDS ORDERED: ORPHENADRINE 30 MG/ML 2 ML VIAL IM STA (12:43)
[2021-08-29] MEDS ORDERED: KETOROLAC 30 MG/ML 1 ML VIAL IM STA (12:43)
--- NOTE | 2021-08-29 12:48 | ED ---
General Adult HPI - General Chief complaint: Fall Stated complaint: back pain Time Seen by Provider: 08/29/21 12:40 Source: patient, RN notes reviewed, old records reviewed Mode of arrival: ambulatory Limitations: no limitations - History of Present Illness Initial comments: This is a 76-year-old female, alert and oriented 4, presents to emergency room with complaints of falling yesterday while stepping up a step into a friend's apartment. She states that she fell down and now has tailbone pain. She had to be helped into the apartment by her friend yesterday. States it has continued to get worse and making it difficult to ambulate. She denies hitting her head or losing consciousness. Denies any chest pain or dizziness. She states the pain is 7 out of 10 and worse with palpation or movement. She denies any bowel or bladder incontinence, no numbness or tingling. She describes the pain as a cramping like menstrual pain. -: days(s) (1) Location: back (sacral), pelvis Radiation: non-radiation Severity scale (1-10): 7 Quality: aching, other (cramping) Consistency: constant Improves with: immobilization Worsens with: movement Associated Symptoms: denies other symptoms Treatments Prior to Arrival: none - Related Data Home Medications Medication Instructions Recorded Confirmed Ferrous Sulfate [Iron (65 MG 325 mg PO DAILY 03/14/18 08/06/21 Elemental)] Donepezil HCl [Aricept] 10 mg PO HS 10/20/20 08/06/21 Folic Acid 1 mg PO DAILY 10/20/20 08/06/21 Levothyroxine Sodium [Synthroid] 75 mcg PO DAILY 10/20/20 08/06/21 lisinopriL [Zestril] 5 mg PO DAILY 10/20/20 08/06/21 metFORMIN HCL ER [Glucophage XR] 500 mg PO PC-SUPPER 10/20/20 08/06/21 Aspirin EC [Ecotrin Low Dose] 81 mg PO DAILY 08/06/21 08/06/21 Cholecalciferol [Vitamin D3 (25 50 mcg PO DAILY 08/06/21 08/06/21 Mcg = 1000 Iu)] Cyanocobalamin (Vitamin B-12) 1,000 mcg PO DAILY 08/06/21 08/06/21 [Vitamin B-12] Dabigatran Etexilate Mesylate 150 mg PO BID 08/06/21 08/06/21 [Pradaxa] Esomeprazole Magnesium [NexIUM] 40 mg PO DAILY 08/06/21 08/06/21 Multivitamin W/ No Iron 1 tab PO DAILY 08/06/21 08/06/21 Potassium Gluconate [Potassium 99 mg PO DAILY 08/06/21 08/06/21 Gluconate ER] Rosuvastatin [Crestor] 20 mg PO DAILY 08/06/21 08/06/21 Sertraline [Zoloft] 100 mg PO DAILY 08/06/21 08/06/21 lamoTRIgine [LaMICtal] 150 mg PO BID 08/06/21 08/06/21 Previous Rx's Medication Instructions Recorded Lacosamide [Vimpat] 50 mg PO BID 30 Days #60 tablet 08/08/21 Ibuprofen [Motrin] 600 mg PO Q8HR PRN #30 tab 08/29/21 Lidocaine 5% Patch [Lidoderm] 1 patch TOPICAL DAILY 10 Days #10 08/29/21 patch Allergies Allergy/AdvReac Type Severity Reaction Status Date / Time Iodine and Iodide Containing Allergy Rash/Hives Verified 08/29/21 09:23 Produc morphine Allergy Unknown Verified 08/29/21 09:23 dust,mold Allergy Unknown Uncoded 08/06/21 12:41 Review of Systems ROS Statement: Those systems with pertinent positive or pertinent negative responses have been documented in the HPI. ROS Other: All systems not noted in ROS Statement are negative. Past Medical History Past Medical History: Cancer, CVA/TIA, Hyperlipidemia, Hypertension, Memory Impairment, Osteoarthritis (OA), Seizure Disorder, Thyroid Disorder Additional Past Medical History / Comment(s): rt side dominant. lt breast cancer dx 2006 had a lumpectomy, no chmo no radiation. overactive bladder(has had an implant for bladder control -since removed and botox inj-completed.back pain,past cva-no residual. hx benign colon polyos, bradycardia. past sleep apnea-since wt loss no longer a problem. 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 History of Any Multi-Drug Resistant Organisms: None Reported Past Surgical History: Bariatric Surgery, Bladder Surgery, Joint Replacement, Tonsillectomy Additional Past Surgical History / Comment(s): zay-en-y, rt total knee replacement 2006, colonoscopy,lt breast bx and lumpectomy, implant in buuotcks for the bladder-since removed and past botox inj in bladder. Past Anesthesia/Blood Transfusion Reactions: No Reported Reaction Past Psychological History: Anxiety, Depression Smoking Status: Never smoker Past Alcohol Use History: None Reported Past Drug Use History: None Reported - Past Family History Father Family Medical History: Coronary Artery Disease (CAD) Additional Family Medical History / Comment(s): heart problems Mother Family Medical History: Cancer Additional Family Medical History / Comment(s): lung cancer w/mets to brain General Exam Limitations: no limitations General appearance: alert, in no apparent distress Head exam: Present: atraumatic, normocephalic, normal inspection Eye exam: Present: normal appearance, EOMI ENT exam: Present: normal exam, normal oropharynx, mucous membranes moist Neck exam: Present: normal inspection, full ROM. Absent: tenderness, meningismus, lymphadenopathy, thyromegaly Respiratory exam: Present: normal lung sounds bilaterally. Absent: respiratory distress, wheezes, rales, rhonchi, stridor Cardiovascular Exam: Present: regular rate, normal rhythm, normal heart sounds. Absent: systolic murmur, diastolic murmur, rubs, gallop, clicks, JVD GI/Abdominal exam: Present: soft, normal bowel sounds. Absent: distended, tenderness, guarding, rebound, rigid Extremities exam: Present: normal inspection, full ROM, normal capillary refill. Absent: tenderness, pedal edema, joint swelling, calf tenderness Back exam: Present: normal inspection, tenderness (Lumbar sacral pain), other (Small bruise noted to sacral spine). Absent: CVA tenderness (R), CVA tenderness (L), rash noted Expanded Back exam: Positive Straight Leg Raise: Right, Negative Straight Leg Raising: Left Neurological exam: Present: alert, oriented X3 Psychiatric exam: Present: normal affect, normal mood Skin exam: Present: warm, dry, intact, normal color. Absent: rash, cyanosis, diaphoretic, petechiae Course Vital Signs 08/29/21 08/29/21 09:23 14:17 Temperature 98.7 F Pulse Rate 60 54 L Respiratory 18 16 Rate Blood Pressure 118/79 157/82 O2 Sat by Pulse 95 95 Oximetry Medical Decision Making - Medical Decision Making 76-year-old female, well-appearing and alert and oriented 4, presents to the emergency room after falling back onto her buttocks yesterday when stepping into the department. She denies bowel or bladder incontinence, no saddle anesthesia. She denies any numbness or tingling. X-ray of the sacrum and coccyx shows no significant abnormality. XR of the LS spine shows no fracture or dislocation. There is evidence of moderate degenerative disc disease between L1 and L4. X-ray of the pelvis shows no acute fracture or dislocation. Patient was discharged home to follow up with her primary care doctor next week. She was directed to use Tylenol and/or Motrin as needed for pain in addition to aery-upq-rskdceu topical pain relievers including icy hot, [place] balm. She was able to ambulate with the nurse at the bedside. She states she lives with a roommate. She was directed to return if any new or worsening symptoms. Case discussed with Dr. Saez Disposition Clinical Impression: Fall, Back pain Disposition: HOME SELF-CARE Condition: Good Instructions (If sedation given, give patient instructions): Fall Prevention for Older Adults (ED) Additional Instructions: Take Tylenol and/or Motrin as needed for pain. You can use vffk-rnl-[id number] topical pain relievers like icy hot, capsaicin creams, or tiger balm. Follow-up with your primary care doctor next week. Return to the emergency room with any new or concerning symptoms. Prescriptions: Lidocaine 5% Patch [Lidoderm] 1 patch TOPICAL DAILY 10 Days #10 patch Ibuprofen [Motrin] 600 mg PO Q8HR PRN #30 tab PRN Reason: Pain Is patient prescribed a controlled substance at d/c from ED?: No Referrals: Darling Newton MD [Primary Care Provider] - 1-2 days Time of Disposition: 14:00
--- NOTE | 2021-08-29 13:44 | XR ---
EXAMINATION TYPE: XR pelvis AP view DATE OF EXAM: 08/29/2021 CLINICAL HISTORY: pain TECHNIQUE: Single view the pelvis is submitted. FINDINGS: No evidence for fracture, dislocation or bony lesion. Joint spaces are well-preserved. S I joints appear symmetric. IMPRESSION: 1. No acute fracture or dislocation seen. ICD 10 NO FRACTURE, INITIAL EVALUATION
[2021-08-29] MEDS ORDERED: LIDOCAINE 5% PATCH TOPICAL SCH (14:00)
[2021-08-29 14:24] VITALS: BP 157/82; PULSE 54; RESP 16
== END 2021-08-29 14:24 | disposition home or self-care (01) ==
LOC: EC 08:37
DX: M54.59 Other low back pain (principal); E78.5 Hyperlipidemia, unspecified; I10 Essential (primary) hypertension; M19.90 Unspecified osteoarthritis, unspecified site; E07.9 Disorder of thyroid, unspecified; F41.9 Anxiety disorder, unspecified; F32.A Depression, unspecified; Z79.84 Long term (current) use of oral hypoglycemic drugs; Z79.82 Long term (current) use of aspirin; Z88.5 Allergy status to narcotic agent; Z86.73 Personal history of transient ischemic attack (TIA), and cerebral infarction without residual deficits; Z85.3 Personal history of malignant neoplasm of breast; Z98.84 Bariatric surgery status; Z96.651 Presence of right artificial knee joint
CPT/HCPCS: 99283; 96372 ×2; 72110; 72170; 72220; J2360; J1885

== ENCOUNTER 2022-07-01 12:13 | Observation (INO) | payer MEDICARE ==
[2022-07-01] MEDS ORDERED: methylPREDNISolone SOD SUCCI 125 MG/2 ML VIAL IV STA (12:16)
[2022-07-01] MEDS ORDERED: FAMOTIDINE 20 MG/2 ML VIAL IV STA (12:16)
[2022-07-01] MEDS ORDERED: diphenhydrAMINE 50 MG/ML 1 ML VIAL IVP STA (12:16)
--- NOTE | 2022-07-01 12:20 | ED ---
General Adult HPI - General Stated complaint: TIA Time Seen by Provider: 07/01/22 12:15 Source: patient, EMS Mode of arrival: EMS Limitations: no limitations - History of Present Illness Initial comments: Patient is a pleasant 77-year-old female presenting to the emergency department with concerns for facial droop. Onset was around 1120 and lasted less than a minute. This was witnessed by her roommate. Patient states she feels fine at this time. Patient does have a history of similar symptoms previously associated with TIA. No confusion or speech problems. No extremity weakness or loss of sensation. - Related Data Home Medications Medication Instructions Recorded Confirmed Ferrous Sulfate [Iron (65 MG 325 mg PO DAILY 03/14/18 08/06/21 Elemental)] Donepezil HCl [Aricept] 10 mg PO HS 10/20/20 08/06/21 Folic Acid 1 mg PO DAILY 10/20/20 08/06/21 Levothyroxine Sodium [Synthroid] 75 mcg PO DAILY 10/20/20 08/06/21 lisinopriL [Zestril] 5 mg PO DAILY 10/20/20 08/06/21 metFORMIN HCL ER [Glucophage XR] 500 mg PO PC-SUPPER 10/20/20 08/06/21 Aspirin EC [Ecotrin Low Dose] 81 mg PO DAILY 08/06/21 08/06/21 Cholecalciferol [Vitamin D3 (25 50 mcg PO DAILY 08/06/21 08/06/21 Mcg = 1000 Iu)] Cyanocobalamin (Vitamin B-12) 1,000 mcg PO DAILY 08/06/21 08/06/21 [Vitamin B-12] Dabigatran Etexilate Mesylate 150 mg PO BID 08/06/21 08/06/21 [Pradaxa] Esomeprazole Magnesium [NexIUM] 40 mg PO DAILY 08/06/21 08/06/21 Multivitamin W/ No Iron 1 tab PO DAILY 08/06/21 08/06/21 Potassium Gluconate [Potassium 99 mg PO DAILY 08/06/21 08/06/21 Gluconate ER] Rosuvastatin [Crestor] 20 mg PO DAILY 08/06/21 08/06/21 Sertraline [Zoloft] 100 mg PO DAILY 08/06/21 08/06/21 lamoTRIgine [LaMICtal] 150 mg PO BID 08/06/21 08/06/21 Previous Rx's Medication Instructions Recorded Lacosamide [Vimpat] 50 mg PO BID 30 Days #60 tablet 08/08/21 Ibuprofen [Motrin] 600 mg PO Q8HR PRN #30 tab 08/29/21 Lidocaine 5% Patch [Lidoderm] 1 patch TOPICAL DAILY 10 Days #10 08/29/21 patch Allergies Allergy/AdvReac Type Severity Reaction Status Date / Time Iodine and Iodide Containing Allergy Rash/Hives Verified 08/29/21 09:23 Produc morphine Allergy Unknown Verified 08/29/21 09:23 dust,mold Allergy Unknown Uncoded 08/06/21 12:41 Review of Systems ROS Statement: Those systems with pertinent positive or pertinent negative responses have been documented in the HPI. ROS Other: All systems not noted in ROS Statement are negative. Constitutional: Denies: fever Eyes: Denies: eye pain Respiratory: Denies: cough Cardiovascular: Denies: chest pain Endocrine: Denies: fatigue Gastrointestinal: Denies: abdominal pain Genitourinary: Denies: urgency Musculoskeletal: Denies: back pain Skin: Denies: rash Neurological: Reports: as per HPI. Denies: headache, confusion Past Medical History Past Medical History: Cancer, CVA/TIA, Hyperlipidemia, Hypertension, Memory Impairment, Osteoarthritis (OA), Seizure Disorder, Thyroid Disorder Additional Past Medical History / Comment(s): rt side dominant. lt breast cancer dx 2005 had a lumpectomy, no chmo no radiation. overactive bladder(has had an implant for bladder control -since removed and botox inj-completed.back pain,past cva-no residual. hx benign colon polyos, bradycardia. past sleep apnea-since wt loss no longer a problem. 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 History of Any Multi-Drug Resistant Organisms: None Reported Past Surgical History: Bariatric Surgery, Bladder Surgery, Joint Replacement, Tonsillectomy Additional Past Surgical History / Comment(s): zay-en-y, rt total knee replacement 2005, colonoscopy,lt breast bx and lumpectomy, implant in buuotcks for the bladder-since removed and past botox inj in bladder. Past Anesthesia/Blood Transfusion Reactions: No Reported Reaction Past Psychological History: Anxiety, Depression Smoking Status: Never smoker Past Alcohol Use History: None Reported Past Drug Use History: None Reported - Past Family History Father Family Medical History: Coronary Artery Disease (CAD) Additional Family Medical History / Comment(s): heart problems Mother Family Medical History: Cancer Additional Family Medical History / Comment(s): lung cancer w/mets to brain General Exam Limitations: no limitations General appearance: alert, in no apparent distress Head exam: Present: normocephalic Eye exam: Present: normal appearance, PERRL, EOMI ENT exam: Present: normal oropharynx Neck exam: Present: normal inspection Respiratory exam: Present: normal lung sounds bilaterally Cardiovascular Exam: Present: regular rate, normal rhythm GI/Abdominal exam: Present: soft. Absent: tenderness Extremities exam: Present: normal inspection Neurological exam: Present: alert, oriented X3, CN II-XII intact. Absent: motor sensory deficit Psychiatric exam: Present: normal affect, normal mood Skin exam: Present: normal color Course Vital Signs 07/01/22 07/01/22 07/01/22 12:15 12:40 12:55 Temperature 97.9 F Pulse Rate 64 56 L 51 L Respiratory 16 16 16 Rate Blood Pressure 179/123 204/100 198/110 O2 Sat by Pulse 95 95 97 Oximetry - Reevaluation(s) Reevaluation #1: 07/01/22 12:19 Patient is not a TPA candidate secondary to resolution of symptoms. Risks are felt to outweigh the benefits. 07/01/22 12:[address] Carr from neurology who agrees medical management, no TPA EKG Findings - EKG Comments: EKG Findings:: Paced rhythm rate 55. IN 209, first-degree AV block. QRS 84. QT 427. QTC 415. Normal axis. Low QRS voltage. No acute ST change. Medical Decision Making - Medical Decision Making Patient reevaluated and updated. Case discussed with Dr. Newton, who will admit his patient. - Lab Data Result diagrams: 07/01/22 12:21 07/01/22 12:21 Lab Results 07/01/22 07/01/22 07/01/22 Range/Units 12:19 12:21 12:21 WBC 3.7 L (3.8-10.6) k/uL RBC 4.74 (3.80-5.40) m/uL Hgb 15.1 (11.4-16.0) gm/dL Hct 45.2 (34.0-46.0) % MCV 95.2 (80.0-100.0) fL MCH 31.7 (25.0-35.0) pg MCHC 33.3 (31.0-37.0) g/dL RDW 12.6 (11.5-15.5) % Plt Count 149 L (150-450) k/uL MPV 8.2 Neutrophils % 61 % Lymphocytes % 26 % Monocytes % 5 % Eosinophils % 5 % Basophils % 0 % Neutrophils # 2.3 (1.3-7.7) k/uL Lymphocytes # 1.0 (1.0-4.8) k/uL Monocytes # 0.2 (0-1.0) k/uL Eosinophils # 0.2 (0-0.7) k/uL Basophils # 0.0 (0-0.2) k/uL PT 10.8 (9.0-12.0) sec INR 1.0 (<1.2) APTT 21.6 L (22.0-30.0) sec Sodium (137-145) mmol/L Potassium (3.5-5.1) mmol/L Chloride (98-107) mmol/L Carbon Dioxide (22-30) mmol/L Anion Gap mmol/L BUN (7-17) mg/dL Creatinine (0.52-1.04) mg/dL Est GFR (CKD-EPI)AfAm (>60 ml/min/1.73 sqM) Est GFR (CKD-EPI)NonAf (>60 ml/min/1.73 sqM) Glucose (74-99) mg/dL POC Glucose (mg/dL) 87 (70-110) mg/dL POC Glu Dump Motor Operator ID Fetterly, Ninfa Calcium (8.4-10.2) mg/dL Total Bilirubin (0.2-1.3) mg/dL AST (14-36) U/L ALT (4-34) U/L Alkaline Phosphatase (38-126) U/L Total Protein (6.3-8.2) g/dL Albumin (3.5-5.0) g/dL 07/01/22 Range/Units 12:21 WBC (3.8-10.6) k/uL RBC (3.80-5.40) m/uL Hgb (11.4-16.0) gm/dL Hct (34.0-46.0) % MCV (80.0-100.0) fL MCH (25.0-35.0) pg MCHC (31.0-37.0) g/dL RDW (11.5-15.5) % Plt Count (150-450) k/uL MPV Neutrophils % % Lymphocytes % % Monocytes % % Eosinophils % % Basophils % % Neutrophils # (1.3-7.7) k/uL Lymphocytes # (1.0-4.8) k/uL Monocytes # (0-1.0) k/uL Eosinophils # (0-0.7) k/uL Basophils # (0-0.2) k/uL PT (9.0-12.0) sec INR (<1.2) APTT (22.0-30.0) sec Sodium 140 (137-145) mmol/L Potassium 4.2 (3.5-5.1) mmol/L Chloride 106 (98-107) mmol/L Carbon Dioxide 27 (22-30) mmol/L Anion Gap 7 mmol/L BUN 14 (7-17) mg/dL Creatinine 0.72 (0.52-1.04) mg/dL Est GFR (CKD-EPI)AfAm >90 (>60 ml/min/1.73 sqM) Est GFR (CKD-EPI)NonAf 81 (>60 ml/min/1.73 sqM) Glucose 92 (74-99) mg/dL POC Glucose (mg/dL) (70-110) mg/dL POC Glu Dump Motor Operator ID Calcium 8.9 (8.4-10.2) mg/dL Total Bilirubin 0.5 (0.2-1.3) mg/dL AST 30 (14-36) U/L ALT 17 (4-34) U/L Alkaline Phosphatase 82 (38-126) U/L Total Protein 6.0 L (6.3-8.2) g/dL Albumin 3.9 (3.5-5.0) g/dL Disposition Clinical Impression: Transient cerebral ischemia Disposition: ADMITTED IP TO THIS HOSP Is patient prescribed a controlled substance at d/c from ED?: No Referrals: Darling Newton MD [Primary Care Provider] - 1-2 days Time of Disposition: 13:14
[2022-07-01 12:30] LABS: Glucose,Whole Blood 87 mg/dL (70-110)
[2022-07-01 12:34] LABS: Basophils % (A) 0 %; Eosinophils # (A) 0.2 k/uL (0-0.7); Eosinophils % (A) 5 %; HCT 45.2 % (34.0-46.0); HGB 15.1 gm/dL (11.4-16.0); Lymphocytes % (A) 26 %; MCH 31.7 pg (25.0-35.0); MCHC 33.3 g/dL (31.0-37.0); MCV 95.2 fL (80.0-100.0); Mean Platelet Volume 8.2; Monocytes # (A) 0.2 k/uL (0-1.0); Monocytes % (A) 5 %; Neutrophils # (A) 2.3 k/uL (1.3-7.7); Neutrophils % (A) 61 %; Platelet Count 149 k/uL (150-450); RBC 4.74 m/uL (3.80-5.40); RDW 12.6 % (11.5-15.5); WBC 3.7 k/uL (3.8-10.6)
[2022-07-01 12:48] LABS: ALT 17 U/L (4-34); AST 30 U/L (14-36); African American GFR (CKD) >90 (>60 ml/min/1.73 sqM); Albumin 3.9 g/dL (3.5-5.0); Alkaline Phosphatase 82 U/L (38-126); Anion Gap 7 mmol/L; Blood Urea Nitrogen 14 mg/dL (7-17); Calcium 8.9 mg/dL (8.4-10.2); Carbon Dioxide 27 mmol/L (22-30); Chloride 106 mmol/L (98-107); Glucose 92 mg/dL (74-99); Non-African American GFR(CKD) 81 (>60 ml/min/1.73 sqM); Potassium 4.2 mmol/L (3.5-5.1); Sodium 140 mmol/L (137-145); Total Bilirubin 0.5 mg/dL (0.2-1.3)
[2022-07-01 12:51] LABS: Prothrombin Time 10.8 sec (9.0-12.0)
[2022-07-01 13:00] LABS: Partial Thromboplastin Time 21.6 sec (22.0-30.0)
--- NOTE | 2022-07-01 13:01 | CT ---
EXAMINATION TYPE: CT brain wo con CT DLP: 1095.6 mGycm, Automated exposure control for dose reduction was used. DATE OF EXAM: 07/01/2022 12:48 PM COMPARISON: Prior CT Brain from 08/06/2021 . CLINICAL INDICATION:Female, 77 years old with history of Neuro deficit, acute, stroke suspected, Left side weakness TECHNIQUE: Brain: Multiple axial CT images of the brain were obtained without IV contrast. Coronal sagittal refo rmats reviewed. FINDINGS: Brain: Extra-axial spaces: No abnormal extra-axial fluid collections. Ventricular system: Dilatation in proportion to cerebral atrophy. Cerebral parenchyma: No acute intraparenchymal hemorrhage or mass effect. Persistent curvilinear hype rdensity high posterior left frontal lobe is unchanged. This is the site of prior treated lesion. The yoon-white junction is well differentiated. Scattered hypoattenuating areas are seen within the whit e matter. Cerebral volume loss. Cerebellum: Unremarkable. Mass effect: No evidence of midline shift. Intracranial vasculature: Atherosclerotic calcifications of the intracranial vessels. Soft tissues: Normal. Calvarium/osseous structures: No depressed skull fracture. Old fracture deformity of the medial wall of the left orbit redemonstrated. Paranasal sinuses and mastoid air cells: Clear Visualized orbits: Orbital contents are intact. IMPRESSION: 1. No acute intracranial process. No significant change from prior examination. 2. Nonspecific white matter changes, likely secondary to chronic small vessel ischemic disease. 3. High left frontal lobe postsurgical or treatment change redemonstrated.
[2022-07-01] MEDS ORDERED: ASPIRIN 325 MG TAB PO STA (13:15)
--- NOTE | 2022-07-01 13:19 | XR ---
EXAMINATION TYPE: XR chest 2V DATE OF EXAM: 07/01/2022 1:13 PM COMPARISON: Chest radiographs from 08/06/2021. TECHNIQUE: XR chest 2V Frontal and lateral views of the chest. CLINICAL INDICATION:Female, 77 years old with history of altered mental status; FINDINGS: Lungs/Pleura: There is no evidence of pleural effusion, focal consolidation, or pneumothorax. Pulmonary vascularity: Unremarkable. Heart/mediastinum: Cardiomediastinal silhouette is enlarged and stable. Atherosclerotic calcificatio ns are seen in the aorta. Two lead cardiac conduction device overlying the left hemithorax with lead tips projecting over the right ventricle and right atrium. Musculoskeletal: No acute osseous pathology. Surgical clips in the left axilla. IMPRESSION: No acute cardiopulmonary disease/process. No significant change from prior examination.
--- NOTE | 2022-07-01 13:23 | CT ---
EXAMINATION TYPE: CT angio head neck DATE OF EXAM: 07/01/2022 HISTORY: Left sided weakness COMPARISON: Prior CTA Head Neck August 06, 2011 CT DLP: 373.8 mGycm. Automated Exposure Control for Dose Reduction was Utilized. TECHNIQUE: CTA scan of the head and neck is performed with IV Contrast, patient injected with 65 mL of Isovue 370, axial images are obtained, coronal and sagittal reformatted images are reviewed. 3D re constructed images are created on an independent workstation and reviewed. FINDINGS: Carotid/Vascular Structures: Mild peripheral plaque at origin of left subclavian artery redemonstrate d. No significant plaque or stenosis at origin of 3 great vessels. Tortuous course to the proximal ri ght common carotid artery is redemonstrated. No significant plaque or stenosis along the common carot id arteries bilaterally. Moderate peripheral calcified plaque at the right carotid bulb extends into proximal internal carotid artery without significant stenosis. Zshh-oz-ccnvnvvy peripheral calcified plaques in the left carotid bulb seen without significant stenosis in the left internal carotid arter y. Patent external carotid arteries bilaterally are seen. Vertebral arteries are patent to the basilar junction with left artery being dominant similar to prio r. Patent left posterior communicating artery redemonstrated filling the left posterior cerebral oren ry as there is absent left P1 segment. Hypoplastic right posterior communicating artery redemonstrate d. No new significant focal stenosis or aneurysm in the posterior circulation. Patent anterior indica ting artery redemonstrated. No new significant focal stenosis or aneurysm in the anterior circulation . Other: Left anterior pacemaker device is partially imaged similar to prior. Mild to moderate Chronic small vessel ischemic change is redemonstrated. Slight scoliotic curvature with focal moderate to sev ere disc space narrowing C5-C6 and C6-C7 level is redemonstrated. IMPRESSION: No significant stenosis in common or internal carotid arteries bilaterally. No significa nt stenosis or aneurysm at level of the [place]. No significant change from prior CTA study. NASCET criteria was used in interpretation of this exam?
[2022-07-01] MEDS ORDERED: ATORVASTATIN 40 MG TAB PO SCH (13:30)
[2022-07-01] MEDS: SODIUM CHLORIDE 0.9% 1,000 ML IV SCH (13:55)
[2022-07-01] MEDS ORDERED: ASPIRIN 81 MG PO STA (19:30)
[2022-07-01] MEDS: lamoTRIgine 100 MG TAB PO SCH (19:58)
[2022-07-01] MEDS: DABIGATRAN 150 MG CAP PO SCH (19:58)
[2022-07-01 20:04] LABS: Glucose,Whole Blood 162 mg/dL (70-110)
[2022-07-01] MEDS ORDERED: DONEPEZIL 10 MG TAB PO SCH (21:00)
[2022-07-01] MEDS: INSULIN ASPART (NovoLOG) 100 UNIT/ML VIAL SQ SCH (23:08)
[2022-07-02 06:22] LABS: Glucose,Whole Blood 115 mg/dL (70-110)
[2022-07-02] MEDS: SODIUM CHLORIDE 0.9% 1,000 ML IV SCH ×2 (06:26→12:11)
[2022-07-02] MEDS: INSULIN ASPART (NovoLOG) 100 UNIT/ML VIAL SQ SCH ×2 (06:26→12:12)
[2022-07-02] MEDS ORDERED: LEVOTHYROXINE 75 MCG TAB PO SCH (06:30)
[2022-07-02] MEDS ORDERED: PANTOPRAZOLE 40 MG TABLET PO SCH (07:30)
[2022-07-02] MEDS ORDERED: ASPIRIN 325 MG TAB PO SCH (09:00)
[2022-07-02] MEDS ORDERED: ATORVASTATIN 40 MG TAB PO SCH (09:00)
[2022-07-02] MEDS ORDERED: CYANOCOBALAMIN 500 MCG TAB PO SCH (09:00)
[2022-07-02] MEDS ORDERED: FOLIC ACID 1 MG TAB PO SCH (09:00)
[2022-07-02] MEDS ORDERED: NON FORMULARY DRUG (Potassium Gluconate [Potassium Gluconate Er] 99 MG Tablet) PO SCH (09:00)
[2022-07-02] MEDS ORDERED: ASPIRIN 81 MG PO SCH (09:00)
[2022-07-02] MEDS ORDERED: FERROUS SULFATE 325 MG TAB PO SCH (09:00)
[2022-07-02] MEDS ORDERED: SERTRALINE 100 MG TAB PO SCH (09:00)
[2022-07-02] MEDS ORDERED: CHOLECALCIFEROL 25 MCG (1000 IU) TABLET PO SCH (09:00)
[2022-07-02] MEDS ORDERED: MULTIVITAMINS, THERA 1 EACH TAB PO SCH (09:00)
[2022-07-02] MEDS: lamoTRIgine 100 MG TAB PO SCH (09:19)
[2022-07-02] MEDS: DABIGATRAN 150 MG CAP PO SCH (09:24)
--- NOTE | 2022-07-02 10:00 | P.CNNES ---
History of Present Illness Consult date: 07/02/22 Requesting physician: Roberto Carlos Quintero Reason for Consult: TIA History of Present Illness: Patient is a 77-year-old female with history of atrial fibrillation, dementia, pacemaker, seizure disorder, hypertension, hyperlipidemia, came to the hospital by ambulance yesterday at 12:13 PM for transient facial twitching. Patient states that she was sitting in the living room, when all of a sudden her face started "going all over the place". She described it as uncontrollable facial twitching. Patient says that it lasted for a minute. As per EMS flow sheet, when they arrived at the scene, found patient sitting on the couch. Patient's family noticed that patient has left-sided facial droop lasting approximately 30 seconds at approximately 11:20 AM. All symptoms had resolved upon EMS arrival. Patient has history of TIA. She was alert and oriented 4. Stroke scale was negative. Patient complains of headache but no other symptoms. Patient's blood pressure was 178/106, which improved to 144/102. Pulse rate 88, respirations 16, saturation 95%, blood sugar 97. Vital signs arrival blood pressure 179/123, which went up to 2004/100 and then 198/110. Most recent blood pressure is 165/89. Patient is afebrile. Blood tests with WBC 3.7, normal differential. Hemoglobin is normal, platelets 149. PT/PTT normal, CMP normal. Patient's previous B12 was 854 and folate 24 on 08/14/2020. TFTs normal. CT head revealed no acute intracranial process. Nonspecific white matter changes likely secondary to chronic small vessel ischemic disease. High left frontal lobe postsurgical or treatment change redemonstrated. CTA of head and neck showed no significant stenosis in, nor internal carotid arteries bilaterally. No significant stenosis or aneurysm at the level of [place]. EKG showed electronic atrial pacemaker. Chest x-ray showed no acute cardiopulmonary disease. Patient has been seen by Dr. Humberto Cruz in the past in July 2021 for exactly similar episode of facial twitching from [id number] that was uncontrollable as well as difficulty getting her words out. Dr. Cruz felt it was due to breakthrough seizure. Does not seem like stroke or TIA. Patient states that she has not had any similar episode since July 2021, until now. She could not tell how often she has these spells prior to July 2021. Patient also had history of left frontal mass since 2014 (meningioma), followed up previously in [facility] but not anymore. Patient has history of seizure, underlying dementia/cognitive impairment, atrial fibrillation, pacemaker, hypertension hyperlipidemia and hypothyroidism. Patient takes Pradaxa. Patient denies any tobacco or alcohol use. 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 She follows up with Dr. Moctezuma. Review of Systems Constitutional: Denies chills, Denies fever Eyes: denies blurred vision, denies pain Ears, nose, mouth and throat: Denies headache, Denies sore throat Cardiovascular: Denies chest pain, Denies shortness of breath Respiratory: Denies cough Gastrointestinal: Denies abdominal pain, Denies diarrhea, Denies nausea, Denies vomiting Genitourinary: Denies dysuria, Denies hematuria Musculoskeletal: Denies myalgias Integumentary: Denies pruritus, Denies rash Neurological: Reports as per HPI, Denies numbness, Denies weakness Psychiatric: Denies anxiety, Denies depression Endocrine: Denies fatigue, Denies weight change Hematologic/Lymphatic: Denies lymphadenopathy Allergic/Immunologic: Denies persistent infections Past Medical History Past Medical History: Cancer, CVA/TIA, Hyperlipidemia, Hypertension, Memory Impairment, Osteoarthritis (OA), Seizure Disorder, Thyroid Disorder Additional Past Medical History / Comment(s): rt side dominant. lt breast cancer dx 2005 had a lumpectomy, no chmo no radiation. overactive bladder(has had an implant for bladder control -since removed and botox inj-completed.back pain,past cva-no residual. hx benign colon polyos, bradycardia. past sleep apnea-since wt loss no longer a problem. 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 History of Any Multi-Drug Resistant Organisms: None Reported Past Surgical History: Bariatric Surgery, Bladder Surgery, Joint Replacement, Tonsillectomy Additional Past Surgical History / Comment(s): zay-en-y, rt total knee replacement 2005, colonoscopy,lt breast bx and lumpectomy, implant in buuotcks for the bladder-since removed and past botox inj in bladder. Past Anesthesia/Blood Transfusion Reactions: No Reported Reaction Smoking Status: Former smoker - Past Family History Father Family Medical History: Coronary Artery Disease (CAD) Additional Family Medical History / Comment(s): heart problems Mother Family Medical History: Cancer Additional Family Medical History / Comment(s): lung cancer w/mets to brain Medications and Allergies Home Medications Medication Instructions Recorded Confirmed Type Ferrous Sulfate [Iron (65 MG 325 mg PO DAILY 03/14/18 07/01/22 History Elemental)] Donepezil HCl [Aricept] 10 mg PO HS 10/20/20 07/01/22 History Folic Acid 1 mg PO DAILY 10/20/20 07/01/22 History Levothyroxine Sodium [Synthroid] 75 mcg PO DAILY 10/20/20 07/01/22 History metFORMIN HCL ER [Glucophage XR] 500 mg PO PC-SUPPER 10/20/20 07/01/22 History Aspirin EC [Ecotrin Low Dose] 81 mg PO DAILY 08/06/21 07/01/22 History Cholecalciferol [Vitamin D3 (25 50 mcg PO DAILY 08/06/21 07/01/22 History Mcg = 1000 Iu)] Cyanocobalamin (Vitamin B-12) 1,000 mcg PO DAILY 08/06/21 07/01/22 History [Vitamin B-12] Dabigatran Etexilate Mesylate 150 mg PO BID 08/06/21 07/01/22 History [Pradaxa] Esomeprazole Magnesium [NexIUM] 40 mg PO DAILY 08/06/21 07/01/22 History Multivitamin W/ No Iron 1 tab PO DAILY 08/06/21 07/01/22 History Potassium Gluconate [Potassium 99 mg PO DAILY 08/06/21 07/01/22 History Gluconate ER] Rosuvastatin [Crestor] 20 mg PO DAILY 08/06/21 07/01/22 History Sertraline [Zoloft] 100 mg PO DAILY 08/06/21 07/01/22 History lamoTRIgine [LaMICtal] 150 mg PO BID 08/06/21 07/01/22 History lisinopriL [Zestril] 10 mg PO DAILY #30 tab 07/02/22 Rx Allergies Allergy/AdvReac Type Severity Reaction Status Date / Time Iodine and Iodide Containing Allergy Rash/Hives Verified 07/01/22 14:28 Produc mold Allergy Unknown Verified 07/01/22 14:28 morphine Allergy Unknown Verified 07/01/22 14:28 dust,mold Allergy Unknown Uncoded 07/01/22 14:28 Physical Examination - Vital Signs Vital Signs: Vital Signs Temp Pulse Pulse Resp BP BP Pulse Ox 07/02/22 08:45 97.6 F 63 165/89 96 07/02/22 04:00 98 F 60 18 169/88 95 07/02/22 02:00 60 20 07/01/22 23:53 60 20 181/96 94 L 07/01/22 20:00 98.2 F 65 20 196/100 07/01/22 18:51 97.3 F L 71 20 167/105 95 07/01/22 14:48 60 16 176/93 95 07/01/22 13:55 60 16 200/108 94 L 07/01/22 13:25 51 L 16 202/111 95 07/01/22 13:10 54 L 16 204/94 97 07/01/22 12:55 51 L 16 198/110 97 07/01/22 12:40 56 L 16 204/100 95 07/01/22 12:15 97.9 F 64 16 179/123 95 Intake and Output 07/01/22 07/02/22 07/02/22 22:59 06:59 14:59 Intake Total 300 300 240 Balance 300 300 240 Intake: Intake, IV Titration 300 300 Amount Sodium Chloride 0.9% 1, 300 300 000 ml @ 100 mls/hr IV . Q10H [facility] Rx#:[id number] Oral 240 Other: # Voids 1 2 Weight 72.4 kg Patient is an elderly female in no acute distress. Patient is alert awake oriented to time place and person. Speech and language functions are normal. Patient can name and repeat very well. No aphasia or dysarthria. Attention, concentration and fund of knowledge is adequate. On cranial nerve examination, pupils are equal, round and reacting to light, visual tony are full on confrontation, with no neglect on double simultaneous depression. Extraocular muscles are intact with no nystagmus. Face is symmetric, tongue protrudes to the midline. Palatal elevation and sensation normal, hearing and shoulder shrug normal, facial sensation normal. On muscle strength testing, there is no pronator drift and the strength is normal in arms and legs distally and proximally. Deep tendon reflexes are (right/left) biceps 1+/1+, brachioradialis 1+/1+, knees 0/1+, ankles 1/1, plantars downgoing bilaterally. Sensory to touch is equal with no neglect on double simultaneous stimulation. Cerebellar function showed no ataxia for emshxu-qm-rjji testing. No dysdiadochokinesia. No ataxia for vsiw-ap-vwuz testing on either side. Tone and bulk of muscles normal. Gait deferred.. On general examination, there is no carotid bruit or murmur, S1-S2 audible. Chest is clear on consultation. Abdomen is soft nontender. No organomegaly, bowel sounds present. Peripheral pulses are present. No edema. Results - Laboratory Findings CBC and BMP: 07/01/22 12:21 07/01/22 12:21 Abnormal Lab Findings: Abnormal Labs 07/01/22 07/01/22 07/01/22 12:21 12:21 12:21 WBC 3.7 L Plt Count 149 L APTT 21.6 L POC Glucose (mg/dL) Total Protein 6.0 L 07/01/22 07/02/22 20:03 06:20 WBC Plt Count APTT POC Glucose (mg/dL) 162 H 115 H Total Protein Assessment and Plan Assessment: * Transient facial twitching [id number] lasting for 1 minute. Patient has presented with similar symptoms in July 2021, which was felt to be a possible seizure. Patient did not have any loss of awareness, loss of consciousness or any other focal neurological symptoms. Doubt stroke TIA. * History of meningioma resection * Seizure disorder, on Lamictal * Atrial fibrillation, on anticoagulation * Hypertension * Hyperlipidemia * Pacemaker * Mild cognitive impairment Plan: * Patient on Lamictal 150 mg twice a day for seizure disorder. Await Lamictal level. If the Lamictal level is subtherapeutic, we will consider increasing the dose of Lamictal. If the levels are normal, we will not make any changes in her seizure medication, as she has not had any such event for almost a year. * Continue Pradaxa for stroke prevention related to atrial fibrillation. * No other neurological workup indicated. * Neurologically clear based upon Lamictal level. If Lamictal level will take time, then patient can be discharged and follow up with her neurologist Dr. Moctezuma in 1-2 weeks. * Thank you for the consult. Addendum: Lamictal level 3.9(2-15) Patient to follow up with Dr. Moctezuma.
[2022-07-02 10:18] VITALS: RESP 17
[2022-07-02 10:50] LABS: Chol/HDL Ratio 3.95 Ratio; LDL Cholesterol,Calculated 205.7 mg/dL (0.0-131.0)
--- NOTE | 2022-07-02 10:53 | CA ---
Transthoracic Echo Report Name: Brooklyn Chiang Age: 77 Gender: F : 1945 Exam Date: 07/02/2022 08:47 Exam Location: [place] [facility] Ht (in): 63 Wt (lb): 159 Ordering Physician: Roberto Carlos Quintero DO Attending/Referring Phys: Reel And Rewinder Operator Tanvi Lewis RDCS Procedure CPT: Indications: Thrombus Cardiac Hx: Technical Quality: Good Contrast 1: Total Dose (mL): Contrast 2: Total Dose (mL): MEASUREMENTS (Male / Female) Normal Values 2D ECHO LV Diastolic Diameter PLAX 4.7 cm 4.2 - 5.9 / 3.9 - 5.3 cm LV Systolic Diameter PLAX 3.1 cm IVS Diastolic Thickness 1.1 cm 0.6 - 1.0 / 0.6 - 0.9 cm LVPW Diastolic Thickness 1.1 cm 0.6 - 1.0 / 0.6 - 0.9 cm LV Relative Wall Thickness 0.5 RV Internal Dim ED PLAX 3.6 cm LVOT Diameter 2.3 cm LA Systolic Diameter LX 3.5 cm 3.0 - 4.0 / 2.7 - 3.8 cm LA Volume 65.8 cm??? 18 - 58 / 22 - 52 cm??? M-MODE Aortic Root Diameter MM 3.5 cm MV E Point Septal Separation 0.3 cm AV Cusp Separation MM 2.0 cm DOPPLER AV Peak Velocity 211.9 cm/s AV Peak Gradient 18.0 mmHg AV Mean Velocity 147.9 cm/s AV Mean Gradient 9.8 mmHg AV Velocity Time Integral 48.5 cm LVOT Peak Velocity 132.2 cm/s LVOT Peak Gradient 7.0 mmHg AV Area Cont Eq pk 2.5 cm??? MV Area PHT 2.0 cm??? Mitral E Point Velocity 47.0 cm/s Mitral A Point Velocity 90.7 cm/s Mitral E to A Ratio 0.5 MV Deceleration Time 383.8 ms MV E' Velocity 3.8 cm/s Mitral E to MV E' Ratio 12.5 FINDINGS Left Ventricle Left ventricular ejection fraction is estimated at 60-65 %. Left ventricular cavity size normal. Borderline left ventricular hypertrophy. Right Ventricle Mild right ventricular dilatation. Unable to estimate the right ventricular systolic pressure. Right Atrium Normal right atrial size. Left Atrium Moderately increased left atrial volume. Mildly increased left atrial area. No evidence for an atrial septal defect. Mitral Valve Mitral valve thickened. Mitral annular calcification. Trace to mild mitral regurgitation. Aortic Valve Focal thickening of the aortic valve cusps. Mild aortic regurgitation. Tricuspid Valve Structurally normal tricuspid valve. Pulmonic Valve Fhfz-iy-rushnpmy pulmonic regurgitation. Pericardium Normal pericardium. No pericardial effusion. Aorta Normal size aortic root and proximal ascending aorta. CONCLUSIONS Normal left ventricular dimension and systolic function Aortic sclerosis with mild aortic regurgitation Mitral annular calcification with mild MR Previewed by: Dr. Toney Gallagher MD (Electronically Signed) Final Date: 02 July 2022 10:52
--- NOTE | 2022-07-02 11:37 | P.HPIM ---
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 Moctezuma. His last hospitalization was in July of 2021 for breakthrough seizure. Patient was brought into [facility] emergency center by EMS to be evaluated for left facial twitching that lasted 1 minute or less. No change in speech, no headache, no extremity weakness. Patient is found to be afebrile, heart rate in the 50s and 60s, blood pressure i nitially 179/123. Pulse ox 95% on room air. EKG paced rhythm without acute ST changes. WBC 3.7, hemoglobin 15.1, platelet count 149. Sodium 140, potassium 4.2, chloride 106, CO2 27, BUN 14 and creatinine 0.72. Blood sugar 92. INR 1.0. Liver function tests were normal. Albumin 3.9. Chest x-ray showed no acute cardiopulmonary disease or process. CAT scan of the brain without contrast revealed no acute intracranial process. Nonspecific white matter changes likely secondary to chronic small vessel ischemic disease. High left frontal lobe postsurgical or treatment changes redemonstrated. CTA of the head and neck revealed no significant stenosis and common or internal carotid arteries bilaterally. No significant stenosis or aneurysm at the level of [place]. No significant change from prior CT study. ER discussed the case with Dr. Carr from neurology with recommendations for medical management as patient is not a TPA candidate. Patient admitted to the cardiac stepdown unit, consult with neurology. REVIEW OF SYSTEMS: Constitutional: No documented fever, no chills, no night sweats. No weight change. No weakness, fatigue or lethargy. No daytime sleepiness. HEENT: No headache. No blurred vision or double vision, no loss of vision. No loss of Hearing, no ringing in the ears, no dizziness. No nasal drainage or congestion. No epistaxis. No sore throat. Lungs: No shortness of breath, no cough, no sputum production. No wheezing. Reports dyspnea with activity. Cardiovascular: No chest pain, no lower extremity edema. No palpitations. No paroxysmal nocturnal dyspnea. No orthopnea. No lightheadedness or dizziness. No syncopal episodes. Abdominal: Reports no abdominal pain. No nausea, vomiting. No diarrhea. No constipation. No bloody or tarry stools reports loss of appetite. Genitourinary: No dysuria, increased frequency, urgency. No urinary retention. Musculoskeletal: No myalgias. No muscle weakness, no gait dysfunction, no frequent falls. No back pain. No neck pain. Integumentary: No wounds, no lesions. No rash or pruritus. No unusual bruising. No change in hair or nails. Neurologic No aphasia. Transient facial twitching. No change in mentation. No head injury. No headache. No paralysis. No paresthesia. Psychiatric: Positive for depression. No anxiety. No mood swings. Endocrine: No abnormal blood sugars. No weight change. PAST MEDICAL HISTORY: Hypertension and hypertensive cardiovascular disease Hyperlipidemia Diabetes mellitus type 2. History of CVA/TIA. History of hemorrhagic CVA. History of meningioma Seizure. Paroxysmal atrial fibrillation. Depressive disorder. Vascular dementia. PAST SURGICAL HISTORY: Chuy-en-Y surgery Permanent pacemaker in 2018 Left breast lumpectomy Minx closure SOCIAL HISTORY: Patient used to smoke about a pack every day she smoked for many years and quit more than 20 years ago, she is to be alcoholic drinker however she stopped many years ago, she denies any drug use or abuse per FAMILY HISTORY: Father at age of 92 from congestive heart failure, mother at age of 88 from brain cancer, patient has one brother who from stroke. PHYSICAL EXAMINATION: General: This is a 77-year-old female laying down in bed in no apparent distress. HEENT: Head is atraumatic, normocephalic, pupils were equal round reactive to light and recommendation, extraocular muscle movement were intact, sclera nonicteric, conjunctivae were pale, mucous membranes of the mouth are somewhat dry. Neck: Supple, no JVP, normal carotid upstroke bilaterally, no lymphadenopathy. Chest: Decreased breath sounds at the bases, few rhonchi, no extremity wheezes, no chest wall tenderness, no intercostal retractions. Heart: First heart sound is normal, second heart sounds normal, there is systolic ejection murmur 2/6 located in the left sternal border. Abdomen: Soft, nontender, nondistended, positive bowel sounds, there is no hepatosplenomegaly. Extremities: There is no edema no calf tenderness DP +2 bilaterally. Neurologic examination: Patient is awake alert and oriented X3, cranial nerves II-12 appear grossly intact, muscle power were 5 out of 5 in upper extremities and 5 out of 5 in bilateral lower extremities, deep tendon reflexes normal bilaterally. ASSESSMENT AND PLAN: 1. Likely break through seizure. Consult with neurology, continue patient on Lamictal 150 mg twice daily, Lamictal level pending. 2. Hypertension and hypertensive cardiovascular disease. Continue metoprolol 25 mg orally twice every day, lisinopril 5 mg orally once every day, amlodipine 10 mg orally once every day, monitor blood pressure very closely. 3. Paroxysmal atrial fibrillation. Resume the patient Pradaxa 150 mg orally twice every day continue baby aspirin 81 mg orally once every day. 4. Hyperlipidemia. Continue Crestor 20 mg orally once every day. 5. Vascular dementia. Continue donepezil 10 mg orally once every day. 6. Diabetes mellitus type 2. Continue patient on metformin 500 mg at supper, continue patient on sliding scale insulin and Farxiga 5 mg orally once every day . 7. Depressive disorder. Continue donepezil 10 mg orally once every day. 8. GERD. Continue as omeprazole 40 mg once every day. 9. DVT prophylaxis. Continue Pradaxa 150 mg orally twice every day. 10. GI prophylaxis. Continue PPI. 11. Admit to inpatient, estimated length of stay 2 midnights. 12. Full code. Past Medical History Past Medical History: Cancer, CVA/TIA, Hyperlipidemia, Hypertension, Memory Impairment, Osteoarthritis (OA), Seizure Disorder, Thyroid Disorder Additional Past Medical History / Comment(s): rt side dominant. lt breast cancer dx 2006 had a lumpectomy, no chmo no radiation. overactive bladder(has had an implant for bladder control -since removed and botox inj-completed.back pain,past cva-no residual. hx benign colon polyos, bradycardia. past sleep apnea-since wt loss no longer a problem. 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 History of Any Multi-Drug Resistant Organisms: None Reported Past Surgical History: Bariatric Surgery, Bladder Surgery, Joint Replacement, Tonsillectomy Additional Past Surgical History / Comment(s): chuy-en-y, rt total knee replacement 2005, colonoscopy,lt breast bx and lumpectomy, implant in buuotcks for the bladder-since removed and past botox inj in bladder. Past Anesthesia/Blood Transfusion Reactions: No Reported Reaction Smoking Status: Former smoker - Past Family History Father Family Medical History: Coronary Artery Disease (CAD) Additional Family Medical History / Comment(s): heart problems Mother Family Medical History: Cancer Additional Family Medical History / Comment(s): lung cancer w/mets to brain Medications and Allergies Home Medications Medication Instructions Recorded Confirmed Type Ferrous Sulfate [Iron (65 MG 325 mg PO DAILY 03/14/18 07/01/22 History Elemental)] Donepezil HCl [Aricept] 10 mg PO HS 10/20/20 07/01/22 History Folic Acid 1 mg PO DAILY 10/20/20 07/01/22 History Levothyroxine Sodium [Synthroid] 75 mcg PO DAILY 10/20/20 07/01/22 History metFORMIN HCL ER [Glucophage XR] 500 mg PO PC-SUPPER 10/20/20 07/01/22 History Aspirin EC [Ecotrin Low Dose] 81 mg PO DAILY 08/06/21 07/01/22 History Cholecalciferol [Vitamin D3 (25 50 mcg PO DAILY 08/06/21 07/01/22 History Mcg = 1000 Iu)] Cyanocobalamin (Vitamin B-12) 1,000 mcg PO DAILY 08/06/21 07/01/22 History [Vitamin B-12] Dabigatran Etexilate Mesylate 150 mg PO BID 08/06/21 07/01/22 History [Pradaxa] Esomeprazole Magnesium [NexIUM] 40 mg PO DAILY 08/06/21 07/01/22 History Multivitamin W/ No Iron 1 tab PO DAILY 08/06/21 07/01/22 History Potassium Gluconate [Potassium 99 mg PO DAILY 08/06/21 07/01/22 History Gluconate ER] Rosuvastatin [Crestor] 20 mg PO DAILY 08/06/21 07/01/22 History Sertraline [Zoloft] 100 mg PO DAILY 08/06/21 07/01/22 History lamoTRIgine [LaMICtal] 150 mg PO BID 08/06/21 07/01/22 History Allergies Allergy/AdvReac Type Severity Reaction Status Date / Time Iodine and Iodide Containing Allergy Rash/Hives Verified 07/01/22 14:28 Produc mold Allergy Unknown Verified 07/01/22 14:28 morphine Allergy Unknown Verified 07/01/22 14:28 dust,mold Allergy Unknown Uncoded 07/01/22 14:28 Physical Exam Vitals: Vital Signs Temp Pulse Pulse Resp BP BP Pulse Ox 07/01/22 18:51 97.3 F L 71 20 167/105 95 07/01/22 14:48 60 16 176/93 95 07/01/22 13:55 60 16 200/108 94 L 07/01/22 13:25 51 L 16 202/111 95 07/01/22 13:10 54 L 16 204/94 97 07/01/22 12:55 51 L 16 198/110 97 07/01/22 12:40 56 L 16 204/100 95 07/01/22 12:15 97.9 F 64 16 179/123 95 Intake and Output 07/01/22 07/01/22 07/01/22 06:59 14:59 22:59 Other: Weight 72.4 kg 72.4 kg Results CBC & Chem 7: 07/01/22 12:21 07/01/22 12:21 Labs: Abnormal Lab Results - Last 24 Hours (Table) 07/01/22 07/01/22 07/01/22 Range/Units 12:21 12:21 12:21 WBC 3.7 L (3.8-10.6) k/uL Plt Count 149 L (150-450) k/uL APTT 21.6 L (22.0-30.0) sec Total Protein 6.0 L (6.3-8.2) g/dL
[2022-07-02 11:46] VITALS: TEMP 98
[2022-07-02 11:56] LABS: Glucose,Whole Blood 83 mg/dL (70-110)
[2022-07-02] MEDS ORDERED: lisinopriL 10 MG TAB PO SCH (12:00)
--- NOTE | 2022-07-02 14:49 | P.DS ---
Providers Date of admission: 07/01/22 13:16 Expected date of discharge: 07/02/22 Attending physician: Darling Newton Consults: 07/01/22 13:15 Consult Physician Routine Consulting Provider: Travis Demarco Consult Reason/Comments: tia Do you want consulting provider notified?: Yes Primary care physician: Darling Newton [facility] Hospital Course: HISTORY OF PRESENT ILLNESS: This is a 77-year-old female with a previous medical history significant for hypertension and hypertensive cardio vascular disease, hyperlipidemia, history of paroxysmal atrial for ablation, history of CVA/TIA, 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 Moctezuma. His last hospitalization was in July of 2021 for breakthrough seizure. Patient was brought into emergency center by EMS to be evaluated for left facial twitching that lasted 1 minute or less. No change in speech, no headache, no extremity weakness. Patient is found to be afebrile, heart rate in the 50s and 60s, blood pressure initially 179/123. Pulse ox 95% on room air. EKG paced rhythm without acute ST changes. WBC 3.7, hemoglobin 15.1, platelet count 149. Sodium 140, potassium 4.2, chloride 106, CO2 27, BUN 14 and creatinine 0.72. Blood sugar 92. INR 1.0. Liver function tests were normal. Albumin 3.9. Chest x-ray showed no acute cardiopulmonary disease or process. CAT scan of the brain without contrast revealed no acute intracranial process. Nonspecific white matter changes likely secondary to chronic small vessel ischemic disease. High left frontal lobe postsurgical or treatment changes redemonstrated. CTA of the head and neck revealed no significant stenosis and common or internal carotid arteries bilaterally. No significant stenosis or aneurysm at the level of [place]. No significant change from prior CT study. ER discussed the case with Dr. Carr from neurology with recommendations for medical management as patient is not a TPA candidate. Patient admitted to the cardiac stepdown unit, consult with neurology. 07/02: Patient has been seen by neurology and we are currently waiting for Lamictal level which is sent out and usually takes 3 days. She has been cleared for discharge by neurology with planned follow-up with Dr. Moctezuma. Patient has also been seen by speech therapy at the bedside evaluation did not warrant further treatment. Patient is tolerating regular diet. Blood pressure continues to be elevated last reading was 162/100. She's been afebrile, heart rate in the 50s and 60s, pulse ox 96% on room air. vehicle monitor technician is paced rhythm. Echocardiogram reveals EF of 60-65%, borderline left ventricular hypertrophy. Trace to mild mitral regurgitation, mild aortic regurgitation, mild to moderate pulmonic regurgitation. Triglycerides 125, cholesterol 309, LDL 205, HDL 78. Patient is very anxious to be discharged. She was started on lisinopril which she does not seem to want to take. She thinks her blood pressure was high just due to the situation of being in the hospital. We will send her a prescription for her in follow-up in the office in a week for further instructions. Patient will be discharged today in stable condition. DISCHARGE DIAGNOSES 1. Likely break through seizure. 2. Hypertension and hypertensive cardiovascular disease. 3. Paroxysmal atrial fibrillation. 4. Hyperlipidemia. 5. Vascular dementia. 6. Diabetes mellitus type 2. 7. Depressive disorder. 8. GERD. DISCHARGE PLAN Home Greater than 35 minutes was utilized and coordinating patient's discharge. Impression and plan of care have been directed as dictated by the signing physician. Nica Everett nurse practitioner acting as scribe for signing physician. Patient Condition at Discharge: Good Plan - Discharge Summary Discharge Rx Participant: Yes New Discharge Prescriptions: New lisinopriL [Zestril] 10 mg PO DAILY #30 tab Continue Ferrous Sulfate [Iron (65 MG Elemental)] 325 mg PO DAILY Donepezil HCl [Aricept] 10 mg PO HS Folic Acid 1 mg PO DAILY Levothyroxine Sodium [Synthroid] 75 mcg PO DAILY metFORMIN HCL ER [Glucophage XR] 500 mg PO PC-SUPPER Cholecalciferol [Vitamin D3 (25 Mcg = 1000 Iu)] 50 mcg PO DAILY lamoTRIgine [LaMICtal] 150 mg PO BID Rosuvastatin [Crestor] 20 mg PO DAILY Esomeprazole Magnesium [NexIUM] 40 mg PO DAILY Dabigatran Etexilate Mesylate [Pradaxa] 150 mg PO BID Potassium Gluconate [Potassium Gluconate ER] 99 mg PO DAILY Multivitamin W/ No Iron 1 tab PO DAILY Cyanocobalamin (Vitamin B-12) [Vitamin B-12] 1,000 mcg PO DAILY Aspirin EC [Ecotrin Low Dose] 81 mg PO DAILY Sertraline [Zoloft] 100 mg PO DAILY Discharge Medication List Ferrous Sulfate [Iron (65 MG Elemental)] 325 mg PO DAILY 03/14/18 [History] Donepezil HCl [Aricept] 10 mg PO HS 10/20/20 [History] Folic Acid 1 mg PO DAILY 10/20/20 [History] Levothyroxine Sodium [Synthroid] 75 mcg PO DAILY 10/20/20 [History] metFORMIN HCL ER [Glucophage XR] 500 mg PO PC-SUPPER 10/20/20 [History] Aspirin EC [Ecotrin Low Dose] 81 mg PO DAILY 08/06/21 [History] Cholecalciferol [Vitamin D3 (25 Mcg = 1000 Iu)] 50 mcg PO DAILY 08/06/21 [History] Cyanocobalamin (Vitamin B-12) [Vitamin B-12] 1,000 mcg PO DAILY 08/06/21 [History] Dabigatran Etexilate Mesylate [Pradaxa] 150 mg PO BID 08/06/21 [History] Esomeprazole Magnesium [NexIUM] 40 mg PO DAILY 08/06/21 [History] Multivitamin W/ No Iron 1 tab PO DAILY 08/06/21 [History] Potassium Gluconate [Potassium Gluconate ER] 99 mg PO DAILY 08/06/21 [History] Rosuvastatin [Crestor] 20 mg PO DAILY 08/06/21 [History] Sertraline [Zoloft] 100 mg PO DAILY 08/06/21 [History] lamoTRIgine [LaMICtal] 150 mg PO BID 08/06/21 [History] lisinopriL [Zestril] 10 mg PO DAILY #30 tab 07/02/22 [Rx] Follow up Appointment(s)/Referral(s): Darling Newton MD [Primary Care Provider] - 1 Week Arnoldo Moctezuma DO [STAFF PHYSICIAN] - 1 Week Discharge Disposition: HOME SELF-CARE
[2022-07-02 15:57] VITALS: BP 151/96; PULSE 89
[2022-07-02] MEDS ORDERED: NON FORMULARY DRUG (Metformin Hcl Er 500 MG Tab.Er.24h) PO SCH (18:30)
== END 2022-07-02 15:45 | disposition home or self-care (01) ==
LOC: EC 12:13 → 6NMEDSUR 13:16 → 3SCARD 17:46
PROVIDERS: ADMIT Internal Medicine; ATTEND Internal Medicine
DX: G45.9 Transient cerebral ischemic attack, unspecified (principal); I11.9 Hypertensive heart disease without heart failure; I48.0 Paroxysmal atrial fibrillation; E78.5 Hyperlipidemia, unspecified; G40.909 Epilepsy, unspecified, not intractable, without status epilepticus; F41.9 Anxiety disorder, unspecified; I44.0 Atrioventricular block, first degree; I70.0 Atherosclerosis of aorta; F32.9 Major depressive disorder, single episode, unspecified; K21.9 Gastro-esophageal reflux disease without esophagitis; E11.9 Type 2 diabetes mellitus without complications; F01.53 Vascular dementia, unspecified severity, with mood disturbance; E03.9 Hypothyroidism, unspecified; I34.81 Nonrheumatic mitral (valve) annulus calcification; I08.0 Rheumatic disorders of both mitral and aortic valves; I37.1 Nonrheumatic pulmonary valve insufficiency; Z79.890 Hormone replacement therapy; Z79.899 Other long term (current) drug therapy; Z79.84 Long term (current) use of oral hypoglycemic drugs; Z79.82 Long term (current) use of aspirin; Z88.5 Allergy status to narcotic agent; Z86.73 Personal history of transient ischemic attack (TIA), and cerebral infarction without residual deficits; Z85.3 Personal history of malignant neoplasm of breast; Z98.84 Bariatric surgery status; Z96.651 Presence of right artificial knee joint; Z82.49 Family history of ischemic heart disease and other diseases of the circulatory system; Z80.1 Family history of malignant neoplasm of trachea, bronchus and lung; Z86.011 Personal history of benign neoplasm of the brain; Z95.0 Presence of cardiac pacemaker; Z87.891 Personal history of nicotine dependence; Z80.8 Family history of malignant neoplasm of other organs or systems; Z82.3 Family history of stroke; Z79.01 Long term (current) use of anticoagulants
CPT/HCPCS: 96374; 96375; 99285; 36415; 93005; 93306; 97161; 97166; 80061; 80053; 80175; 85025; 85610; 85730; 80235; 71046; 70496; 70450; 70498; G0378 ×3; J1200; J2930; Q9967

== ENCOUNTER → 2022-08-17 | Outpatient (CLI) | payer MEDICARE ==
--- NOTE | 2022-08-17 16:20 | USB ---
Patient History: Menarche at age 11. Patient has no children. Postmenopausal. Breast cancer, age 64. 2009, Lumpectomy on the Left side. 2008, Radiation Therapy on the left side. Prior Study Comparison: 04/17/2015 Screening Mammogram, [facility]. 11/13/2018 Bilateral Diagnostic Mammogram, [facility]. 02/04/2021 Bilateral Diagnostic Mammogram, [facility]. Findings: The upper outer quadrant of the left breast, the axilla of the left breast and the retroareolar of the left breast were scanned. Targeted ultrasound left breast upper outer quadrant including scanning of the subareolar region and axilla. Scattered dense tissue is present. Shadowing from scar is noted at the 1:00 position, 8 cm from the nipple. No solid or cystic lesion or axillary lymphadenopathy.. Overall Assessment: Probably benign, BI-RAD 3 Management: Diagnostic Mammogram of the left breast in 6 months. 1. Patient should continue monthly self breast exams. 2. A clinical breast exam by your physician is recommended on an annual basis. 3. This exam should not preclude additional follow-up of suspicious palpable abnormalities. Results were given to the patient verbally at the time of exam. Electronically signed and approved by: Zee Ashby M.D. Radiologist
== END | disposition home or self-care (01) ==
LOC: RADUSWWP 14:52
PROVIDERS: ATTEND Internal Medicine
DX: C50.412 Malignant neoplasm of upper-outer quadrant of left female breast (principal); Z78.0 Asymptomatic menopausal state

== ENCOUNTER → 2023-02-23 | Outpatient (CLI) | payer MEDICARE ==
--- NOTE | 2023-02-23 14:18 | MM ---
Reason for Exam: Follow-up at short interval from prior study. Last screening mammogram was performed 6 month(s) ago. Patient History: Menarche at age 11. Patient has no children. Postmenopausal. Breast cancer, left, age 64. Previous chest radiation therapy at age 64. 2009, Lumpectomy on the Left side. 2009, Radiation Therapy on the left side. Prior Study Comparison: 04/17/2015 [facility] 11/13/2018 Bilateral Diagnostic Mammogram, [facility]. 02/04/2021 Bilateral Diagnostic Mammogram, [facility]. 07/29/2022 Bilateral MG 3D screening mammo w/cad, [facility]. 08/17/2022 Left US breast limited LT, [facility]. Tissue Density: Left: The breast tissue is heterogeneously dense. This may lower the sensitivity of mammography. Findings: Analyzed By CAD. Architectural distortion posterior upper-outer quadrant left breast. On additional views, the area of distortion moves anteriorly and underlies a scar marker. Findings suspected to represent the lumpectomy scar. Given the different position on the initial images, precautionary short interval follow-up is recommended. Benign bilateral vascular calcifications. Posttreatment change left breast redemonstrated. Overall Assessment: Probably benign, BI-RAD 3 Management: Diagnostic Mammogram of both breasts in 6 months. Total 1 year follow-up left breast and annual exam of the right breast. Results were given to the patient verbally at the time of exam. Patient should continue monthly self-breast exams. A clinical breast exam by your physician is recommended on an annual basis. This exam should not preclude additional follow-up of suspicious palpable abnormalities. Electronically signed and approved by: Zee Ashby M.D. Radiologist
== END | disposition home or self-care (01) ==
LOC: RADMAMWWP 12:53
PROVIDERS: ATTEND Internal Medicine
DX: C50.412 Malignant neoplasm of upper-outer quadrant of left female breast (principal); Z78.0 Asymptomatic menopausal state; Z92.3 Personal history of irradiation
CPT/HCPCS: 77065; G0279; 77061

== ENCOUNTER → 2024-09-06 | Outpatient (CLI) | payer MEDICARE | END | disposition home or self-care (01) | LOC: RADCTMAIN 15:27 | PROVIDERS: ATTEND Internal Medicine | DX: Z53.9 Procedure and treatment not carried out, unspecified reason (principal) ==

== ENCOUNTER 2024-10-10 22:50 | Emergency (ER) | payer MEDICARE ==
--- NOTE | 2024-10-10 22:52 | ED ---
Fall HPI - General Stated Complaint: Fall Time Seen by Provider: 10/10/24 22:51 Source: RN notes reviewed, old records reviewed Mode of arrival: EMS Limitations: no limitations - History of Present Illness Initial Comments: This is an 79-year-old female mechanical fall trip and fall positive hitting of head, patient is on anticoagulation severe right leg pain right hip pain thigh pain. 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 Fall Witnessed: no Place Fall Occurred: home Loss of Consciousness: none Prolonged Down Time?: no Symptoms Prior to Fall: none Location: head Location - Extremities: Right: Thigh, Knee Severity: severe Severity scale (1-10): 10 Quality: sharp Context: tripped/slipped Associated Symptoms: denies - Related Data Home Medications Medication Instructions Recorded Confirmed Ferrous Sulfate [Iron (65 MG 325 mg PO DAILY 03/14/18 07/01/22 Elemental)] Donepezil HCl [Aricept] 10 mg PO HS 10/20/20 07/01/22 Folic Acid 1 mg PO DAILY 10/20/20 07/01/22 Levothyroxine Sodium [Synthroid] 75 mcg PO DAILY 10/20/20 07/01/22 metFORMIN HCL ER [Glucophage XR] 500 mg PO PC-SUPPER 10/20/20 07/01/22 Aspirin EC [Ecotrin Low Dose] 81 mg PO DAILY 08/06/21 07/01/22 Cholecalciferol [Vitamin D3 (25 50 mcg PO DAILY 08/06/21 07/01/22 Mcg = 1000 Iu)] Cyanocobalamin (Vitamin B-12) 1,000 mcg PO DAILY 08/06/21 07/01/22 [Vitamin B-12] Dabigatran Etexilate Mesylate 150 mg PO BID 08/06/21 07/01/22 [Pradaxa] Esomeprazole Magnesium [NexIUM] 40 mg PO DAILY 08/06/21 07/01/22 Multivitamin W/ No Iron 1 tab PO DAILY 08/06/21 07/01/22 Potassium Gluconate [Potassium 99 mg PO DAILY 08/06/21 07/01/22 Gluconate ER] Rosuvastatin [Crestor] 20 mg PO DAILY 08/06/21 07/01/22 Sertraline [Zoloft] 100 mg PO DAILY 08/06/21 07/01/22 lamoTRIgine [LaMICtal] 150 mg PO BID 08/06/21 07/01/22 Previous Rx's Medication Instructions Recorded lisinopriL [Zestril] 10 mg PO DAILY #30 tab 07/02/22 Allergies Allergy/AdvReac Type Severity Reaction Status Date / Time Iodine and Iodide Containing Allergy Rash/Hives Verified 07/01/22 14:28 Produc mold Allergy Unknown Verified 07/01/22 14:28 morphine Allergy Unknown Verified 07/01/22 14:28 dust,mold Allergy Unknown Uncoded 07/01/22 14:28 Review of Systems ROS Statement: Those systems with pertinent positive or pertinent negative responses have been documented in the HPI. ROS Other: All systems not noted in ROS Statement are negative. Past Medical History Past Medical History: Cancer, CVA/TIA, Hyperlipidemia, Hypertension, Memory Impairment, Osteoarthritis (OA), Seizure Disorder, Thyroid Disorder Additional Past Medical History / Comment(s): rt side dominant. lt breast cancer dx 2005 had a lumpectomy, no chmo no radiation. overactive bladder(has had an implant for bladder control -since removed and botox inj-completed.back pain,past cva-no residual. hx benign colon polyos, bradycardia. past sleep apnea-since wt loss no longer a problem. 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 History of Any Multi-Drug Resistant Organisms: None Reported Past Surgical History: Bariatric Surgery, Bladder Surgery, Joint Replacement, Tonsillectomy Additional Past Surgical History / Comment(s): [id number], rt total knee replacement 2005, colonoscopy,lt breast bx and lumpectomy, implant in buuotcks for the bladder-since removed and past botox inj in bladder. Past Anesthesia/Blood Transfusion Reactions: No Reported Reaction Smoking Status: Former smoker - Past Family History Father Family Medical History: Coronary Artery Disease (CAD) Additional Family Medical History / Comment(s): heart problems Mother Family Medical History: Cancer Additional Family Medical History / Comment(s): lung cancer w/mets to brain General Exam General appearance: alert, in no apparent distress, anxious, in distress Head exam: Present: atraumatic, normocephalic, normal inspection Eye exam: Present: normal appearance, PERRL, EOMI. Absent: scleral icterus, conjunctival injection, periorbital swelling ENT exam: Present: normal exam, mucous membranes moist Neck exam: Present: normal inspection. Absent: tenderness, meningismus, lymphadenopathy Respiratory exam: Present: normal lung sounds bilaterally. Absent: respiratory distress, wheezes, rales, rhonchi, stridor Cardiovascular Exam: Present: regular rate, normal rhythm, normal heart sounds. Absent: systolic murmur, diastolic murmur, rubs, gallop, clicks GI/Abdominal exam: Present: soft, normal bowel sounds. Absent: distended, tenderness, guarding, rebound, rigid Extremities exam: Present: tenderness, normal capillary refill, other (Difficult deformity right thigh). Absent: full ROM, pedal edema, joint swelling, calf tenderness Back exam: Present: normal inspection Neurological exam: Present: alert, oriented X3, CN II-XII intact Psychiatric exam: Present: normal affect, normal mood Skin exam: Present: warm, dry, intact, normal color. Absent: rash Course Vital Signs 10/10/24 10/11/24 23:55 00:13 Pulse Rate 61 57 L Respiratory 18 16 Rate Blood Pressure 154/83 105/72 O2 Sat by Pulse 96 96 Oximetry - Reevaluation(s) Reevaluation #1: 10/11/24 00:33 Records reviewed Reevaluation #2: 10/11/24 00:33 Pain is controlled Reevaluation #3: 10/11/24 00:33 Informed of results questions answered Reevaluation #4: Was pt. sent in by a medical professional or institution (, PA, CHARGE MASTER SPECIALIST, urgent care, hospital, or care home...) When possible be specific @ -no Did you speak to anyone other than the patient for history (EMS, parent, family, police, friend...)? What history was obtained from this source @ -no Did you review nursing and triage notes (agree or disagree)? Why? @ -agree Are old charts reviewed (outside hosp., previous admission, EMS record, old EKG, old radiological studies, urgent care reports/EKG's, care home records)? Report findings @ -yes Differential Diagnosis (chest pain, altered mental status, abdominal pain women, abdominal pain men, vaginal bleeding, weakness, fever, dyspnea, syncope, hea dache, dizziness, GI bleed, back pain, seizure, CVA, palpatations, mental health, musculoskeletal)? @ -prior EKG interpreted by me (3pts min.). @ -yes X-rays interpreted by me (1pt min.). @ -yes negative for acute disease CT interpreted by me (1pt min.). @ -no U/S interpreted by me (1pt. min.). @ -no What testing was considered but not performed or refused? (CT, X-rays, U/S, labs)? Why? @ -none What meds were considered but not given or refused? Why? @ -none Did you discuss the management of the patient with other professionals (professionals i.e. , PA, CHARGE MASTER SPECIALIST, lab, RT, psych nurse, aids social worker, dorr operator, teacher, driver's license reviewing officer, machine adjuster leader case trim)? Give summary @ -no Was smoking cessation discussed for >3mins.? @ -no Was critical care preformed (if so, how long)? @ -no Were there social determinants of health that impacted care today? How? (Homelessness, low income, unemployed, alcoholism, drug addiction, transportation, low edu. Level, literacy, decrease access to med. care, skilled nursing, rehab)? @ -none Was there de-escalation of care discussed even if they declined (Discuss DNR or withdrawal of care, Hospice)? DNR status @ -no What co-morbidities impacted this encounter? (DM, HTN, Smoking, COPD, CAD, Cancer, CVA, ARF, Chemo, Hep., AIDS, mental health diagnosis, sleep apnea, mo rbid obesity)? @ -none Was patient admitted / discharged? Hospital course, mention meds given and r oute, prescriptions, significant lab abnormalities, going to OR and other pertinent info. @ - Undiagnosed new problem with uncertain prognosis? @ -no Drug Therapy requiring intensive monitoring for toxicity (Heparin, Nitro, Insulin, Cardizem)? @ -no Were any procedures done? @ -no Diagnosis/symptom? @ - Acute, or Chronic, or Acute on Chronic? @ -Acute Uncomplicated (without systemic symptoms) or Complicated (systemic symptoms)? @ -Complicated Side effects of treatment? @ -no Exacerbation, Progression, or Severe Exacerbation? @ -exacerbation Poses a threat to life or bodily function? How? (Chest pain, [place], VA, pneumonia, PE, COPD, DKA, ARF, appy, cholecystitis, CVA, Diverticulitis, Homicidal, Suicidal, threat to staff... and all critical care pts) @ -yes - Consultations Consultation #1: Spoke with orthopedics on-call recommend transfer Consultation #2: Spoke with Genesis Vasquez accept transfer Medical Decision Making - Medical Decision Making 79 female to ER after fall midshaft spiral femur fracture displaced. Patient was placed in knee immobilizer pain is controlled. Patient was also a fall on anticoagulation imaging is negative and she can be discharged home - Lab Data Result diagrams: 10/10/24 23:48 10/10/24 23:48 Lab Results 10/10/24 10/10/24 10/10/24 Range/Units 23:48 23:48 23:48 WBC 7.3 (3.8-10.6) k/uL RBC 3.98 (3.80-5.40) m/uL Hgb 12.7 (11.4-16.0) gm/dL Hct 37.5 (34.0-46.0) % MCV 94.2 (80.0-100.0) fL MCH 31.8 (25.0-35.0) pg MCHC 33.8 (31.0-37.0) g/dL RDW 13.7 (11.5-15.5) % Plt Count 116 L (150-450) k/uL MPV 8.8 Neutrophils % 80 % Lymphocytes % 13 % Monocytes % 4 % Eosinophils % 3 % Basophils % 0 % Neutrophils # 5.8 (1.3-7.7) k/uL Lymphocytes # 0.9 L (1.0-4.8) k/uL Monocytes # 0.3 (0-1.0) k/uL Eosinophils # 0.2 (0-0.7) k/uL Basophils # 0.0 (0-0.2) k/uL Sodium 137 (137-145) mmol/L Potassium 3.9 (3.5-5.1) mmol/L Chloride 105 (98-107) mmol/L Carbon Dioxide 26 (22-30) mmol/L Anion Gap 6 mmol/L BUN 22 H (7-17) mg/dL Creatinine 0.81 (0.52-1.04) mg/dL Est GFR (CKD-EPI)AfAm 79 (>60 ml/min/1.73 sqM) Est GFR (CKD-EPI)NonAf 69 (>60 ml/min/1.73 sqM) Glucose 125 H (74-99) mg/dL Plasma Lactic Acid Orestes 0.9 (0.7-2.0) mmol/L Calcium 8.7 (8.4-10.2) mg/dL Phosphorus 4.8 H (2.5-4.5) mg/dL Magnesium 1.8 (1.6-2.3) mg/dL Total Bilirubin 0.3 (0.2-1.3) mg/dL AST 31 (14-36) U/L ALT 20 (4-34) U/L Alkaline Phosphatase 62 (38-126) U/L Troponin I (0.000-0.034) ng/mL NT-Pro-B Natriuret Pep 324 pg/mL Total Protein 5.2 L (6.3-8.2) g/dL Albumin 3.4 L (3.5-5.0) g/dL 10/10/24 Range/Units 23:48 WBC (3.8-10.6) k/uL RBC (3.80-5.40) m/uL Hgb (11.4-16.0) gm/dL Hct (34.0-46.0) % MCV (80.0-100.0) fL MCH (25.0-35.0) pg MCHC (31.0-37.0) g/dL RDW (11.5-15.5) % Plt Count (150-450) k/uL MPV Neutrophils % % Lymphocytes % % Monocytes % % Eosinophils % % Basophils % % Neutrophils # (1.3-7.7) k/uL Lymphocytes # (1.0-4.8) k/uL Monocytes # (0-1.0) k/uL Eosinophils # (0-0.7) k/uL Basophils # (0-0.2) k/uL Sodium (137-145) mmol/L Potassium (3.5-5.1) mmol/L Chloride (98-107) mmol/L Carbon Dioxide (22-30) mmol/L Anion Gap mmol/L BUN (7-17) mg/dL Creatinine (0.52-1.04) mg/dL Est GFR (CKD-EPI)AfAm (>60 ml/min/1.73 sqM) Est GFR (CKD-EPI)NonAf (>60 ml/min/1.73 sqM) Glucose (74-99) mg/dL Plasma Lactic Acid Orestes (0.7-2.0) mmol/L Calcium (8.4-10.2) mg/dL Phosphorus (2.5-4.5) mg/dL Magnesium (1.6-2.3) mg/dL Total Bilirubin (0.2-1.3) mg/dL AST (14-36) U/L ALT (4-34) U/L Alkaline Phosphatase (38-126) U/L Troponin I <0.012 (0.000-0.034) ng/mL NT-Pro-B Natriuret Pep pg/mL Total Protein (6.3-8.2) g/dL Albumin (3.5-5.0) g/dL - EKG Data -: EKG Interpreted by Me (EKG is sinus 55 UT 157 QRS 84 QTc 360) - Radiology Data Radiology results: report reviewed (CT brain C-spine chest pelvis and right hip x-ray negative right femur positive fracture), image reviewed Disposition Clinical Impression: Fall, Spiral fracture of shaft of femur, Left femoral shaft fracture Disposition: OTHER INSTITUTION NOT DEFINED Condition: Fair Is patient prescribed a controlled substance at d/c from ED?: No Referrals: Darling Newton MD [Primary Care Provider] - 1-2 days Time of Disposition: 00:30
--- NOTE | 2024-10-10 23:22 | CT ---
EXAM: CT Head Without Intravenous Contrast CLINICAL HISTORY: ITS.REASON CT Reason: fall TECHNIQUE: Axial computed tomography images of the head/brain without intravenous contrast. CTDI is 15.4 mGy and DLP is 460.3 mGy-cm. This CT exam was performed using one or more of the following dose reduction techniques: automated exposure control, adjustment of the mA and/or kV according to patient size, and/or use of iterative reconstruction technique. COMPARISON: No relevant prior studies available. FINDINGS: Brain: Age-related parenchymal volume loss. Mild chronic small vessel ischemic change. Small chronic cortical infarct in the right occipital lobe. Harvye-white matter differentiation otherwise maintained. No hemorrhage, mass effect, parenchymal edema, or midline shift. Ventricles: Unremarkable. No hydrocephalus. Bones/joints: Unremarkable. No acute fracture. Soft tissues: Unremarkable. Vasculature: Intracranial atherosclerosis. Sinuses: Unremarkable as visualized. Mastoid air cells: Unremarkable as visualized. No mastoid effusion. IMPRESSION: No acute intracranial process. EXAM: CT Cervical Spine Without Intravenous Contrast CLINICAL HISTORY: ITS.REASON CT Reason: fall TECHNIQUE: Axial computed tomography images of the cervical spine without intravenous contrast. CTDI is 0 mGy and DLP is 0 mGy-cm. This CT exam was performed using one or more of the following dose reduction techniques: automated exposure control, adjustment of the mA and/or kV according to patient size, and/or use of iterative reconstruction technique. COMPARISON: No relevant prior studies available. FINDINGS: Vertebrae: See below. Discs/spinal canal/neural foramina: Developmental fusion of C6 and C7. Vertebral body height and alignment maintained. No acute fracture or traumatic subluxation. Osteopenia. Multilevel disc and uncovertebral joint degeneration. No high-grade spinal canal narrowing. Varying degrees of bilateral foraminal narrowing, right greater than left, worst at C3-C4. Soft tissues: Unremarkable. Tubes, lines and devices: Partially imaged left chest wall AICD- pacemaker. IMPRESSION: No acute findings in the cervical spine.
[2024-10-10] MEDS: SODIUM CHLORIDE 0.9% 1,000 ML IV STA (23:36)
[2024-10-10] MEDS: ONDANSETRON 4 MG/2 ML VIAL IVP STA (23:37)
--- NOTE | 2024-10-10 23:37 | XR ---
EXAM: XR Chest, 1 View CLINICAL HISTORY: ITS.REASON XR Reason: fall TECHNIQUE: Frontal view of the chest. COMPARISON: 04/24/20 FINDINGS: Limitations: Left arm projects over left upper chest. Lungs: Unremarkable. No consolidation. Pleural space: Unremarkable. No pleural effusion or pneumothorax. Heart: Cardiomegaly. Bones/joints: No acute fracture. No dislocation. Tubes, lines and devices: Left chest wall dual-lead AICD-pacemaker. IMPRESSION: No acute findings in the chest.
--- NOTE | 2024-10-10 23:38 | XR ---
EXAM: XR Pelvis, 1 or 2 Views CLINICAL HISTORY: ITS.REASON XR Reason: fall TECHNIQUE: Frontal view of the pelvis. COMPARISON: 08/29/21 FINDINGS: Bones/joints: Osteopenia. No visible fracture. No dislocation. Soft tissues: Unremarkable. IMPRESSION: No acute findings in the pelvis.
[2024-10-10] MEDS: HYDROmorphone 0.5 MG/0.5 ML SYRINGE IVP STA (23:40)
[2024-10-10] MEDS: HYDROmorphone 1 MG/ML 1 ML SYRINGE IVP STA (23:48)
--- NOTE | 2024-10-10 23:57 | XR ---
EXAM: XR Right Femur, 2 Views CLINICAL HISTORY: [email or web address] XR Reason: CODE COAG TRAUMA FALL TECHNIQUE: Frontal and lateral views of the right femur. COMPARISON: No relevant prior studies available. FINDINGS: Bones/joints: Osteopenia. Acute displaced spiral fracture of the distal femur appearing to remain superior to the level of the total knee arthroplasty. Total knee arthroplasty. No significant joint effusion. No joint dislocation. Soft tissues: Unremarkable. IMPRESSION: Acute displaced spiral fracture of the distal femur appearing to remain superior to the level of the total knee arthroplasty.
[2024-10-11 00:15] VITALS: RESP 16
[2024-10-11] MEDS: LORazepam 2 MG/ML INJ IV STA (00:15)
[2024-10-11 00:16] LABS: Basophils % (A) 0 %; Eosinophils # (A) 0.2 k/uL (0-0.7); Eosinophils % (A) 3 %; HCT 37.5 % (34.0-46.0); HGB 12.7 gm/dL (11.4-16.0); Lymphocytes # (A) 0.9 k/uL (1.0-4.8); Lymphocytes % (A) 13 %; MCH 31.8 pg (25.0-35.0); MCHC 33.8 g/dL (31.0-37.0); MCV 94.2 fL (80.0-100.0); Mean Platelet Volume 8.8; Monocytes # (A) 0.3 k/uL (0-1.0); Monocytes % (A) 4 %; Neutrophils # (A) 5.8 k/uL (1.3-7.7); Neutrophils % (A) 80 %; Platelet Count 116 k/uL (150-450); RBC 3.98 m/uL (3.80-5.40); RDW 13.7 % (11.5-15.5); WBC 7.3 k/uL (3.8-10.6)
[2024-10-11 00:34] LABS: ALT 20 U/L (4-34); AST 31 U/L (14-36); African American GFR (CKD) 79 (>60 ml/min/1.73 sqM); Albumin 3.4 g/dL (3.5-5.0); Alkaline Phosphatase 62 U/L (38-126); Anion Gap 6 mmol/L; Blood Urea Nitrogen 22 mg/dL (7-17); Calcium 8.7 mg/dL (8.4-10.2); Carbon Dioxide 26 mmol/L (22-30); Chloride 105 mmol/L (98-107); Glucose 125 mg/dL (74-99); Magnesium 1.8 mg/dL (1.6-2.3); Non-African American GFR(CKD) 69 (>60 ml/min/1.73 sqM); Phosphorus 4.8 mg/dL (2.5-4.5); Potassium 3.9 mmol/L (3.5-5.1); Sodium 137 mmol/L (137-145); Total Bilirubin 0.3 mg/dL (0.2-1.3); Total Protein 5.2 g/dL (6.3-8.2)
[2024-10-11 00:36] LABS: INR 1.2 (<1.2); Partial Thromboplastin Time 32.6 sec (22.0-30.0); Prothrombin Time 13.1 sec (10.0-12.5)
[2024-10-11 00:43] LABS: NT-Pro-B-Type Natriuretic Pept 324 pg/mL
--- NOTE | 2024-10-11 01:38 | XR ---
EXAM: XR Right Femur, 2 Views CLINICAL HISTORY: [email or web address] XR Reason: fall/ post reduction TECHNIQUE: Frontal and lateral views of the right femur. COMPARISON: 10/10/24 at 2308 hrs. FINDINGS/IMPRESSION: Status post reduction. Acute spiral fracture of the distal femur with persistent displacement, not significantly changed from prior. Total knee arthroplasty. Soft tissue swelling.
[2024-10-11 03:32] VITALS: BP 116/69; PULSE 62
== END 2024-10-11 01:29 | disposition other institution (70) ==
LOC: EC 22:50
DX: S72.341A Displaced spiral fracture of shaft of right femur, initial encounter for closed fracture (principal); S72.302A Unspecified fracture of shaft of left femur, initial encounter for closed fracture; Z87.891 Personal history of nicotine dependence; Z88.5 Allergy status to narcotic agent; Z91.048 Other nonmedicinal substance allergy status; Z88.8 Allergy status to other drugs, medicaments and biological substances; W01.0XXA Fall on same level from slipping, tripping and stumbling without subsequent striking against object, initial encounter
CPT/HCPCS: 99285 ×2; 96374 ×2; 96375 ×3; 96361 ×2; 36415; 93005; 83880; 80053; 83605; 83735; 84100; 84484; 85025; 85610; 85730; 72170; 73552; 71045; 72125; 70450; J2060; J2405; J1171 ×2